=== PATIENT | male | born 1935 | race Caucasian/White ===

== ENCOUNTER 2017-04-13 08:12 | Inpatient (IN) | payer MEDICARE ==
[2017-04-13] MEDS ORDERED: SODIUM CHLORIDE 0.9% 1,000 ML IV STA ×2 (08:33→08:35)
[2017-04-13] MEDS ORDERED: PANTOPRAZOLE 40 MG/10 ML VIAL IVP ONE (08:34)
--- NOTE | 2017-04-13 08:42 | ED ---
General Adult HPI - General Chief complaint: Syncope Stated complaint: syncope Time Seen by Provider: 04/13/17 08:24 Source: patient, EMS Mode of arrival: EMS Limitations: no limitations - History of Present Illness Initial comments: This 81-year-old white male presents with a complaint of a syncopal episode and GI bleeding. He states that over the past 24 hours he's had approximately 6 episodes of bloody stools. His past fair amount of blood. He states that initially was minimally lightheaded and then this morning he was significantly lightheaded and apparently passed out. He states that he passed out on the way back to his bed and landed on his bed and denies any actual injuries. He is on Coumadin and his last INR was 3.68 days ago. He denies any abdominal pain. He denies any previous GI bleeding issues. He has had occasional colitis in the past but denies any history of peptic ulcer disease. His last colonoscopy was 2 years ago and his purportedly normal. 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 He denies any fevers or chills. No chest pain or shortness of breath. No other complaints or modifying factors. He does present via EMS and is very pale upon arrival. - Related Data Home Medications Medication Instructions Recorded Confirmed Aspirin 81 mg PO HS 02/15/14 04/13/17 Diltiazem Cd [Cardizem CD] 300 mg PO HS 02/15/14 04/13/17 Enalapril [Vasotec] 20 mg PO DAILY 02/15/14 04/13/17 Glimepiride [Amaryl] 4 mg PO DAILY 02/15/14 04/13/17 Insulin Detemir [Levemir] 25 unit INJ BID 02/15/14 04/13/17 Metoprolol Succinate (ER) [Toprol 25 mg PO DAILY 02/15/14 04/13/17 XL] Niacin [Niaspan] 500 mg PO HS 02/15/14 04/13/17 Warfarin [Coumadin] 2 mg PO MOWEFR 02/15/14 04/13/17 Warfarin [Coumadin] 5 mg PO MOWEFR 02/15/14 04/13/17 Potassium Chloride ER [K-Dur 10] 10 meq PO DAILY 04/13/17 04/13/17 Torsemide [Demadex] 20 mg PO DAILY 04/13/17 04/13/17 Warfarin Sodium [Coumadin] 6 mg PO SUTUTHSA 04/13/17 04/13/17 Previous Rx's Medication Instructions Recorded Clindamycin HCl [Cleocin] 300 mg PO TID #10 cap 02/17/14 Allergies Allergy/AdvReac Type Severity Reaction Status Date / Time Penicillins Allergy Unknown Verified 04/13/17 09:35 Childhood Review of Systems ROS Statement: Those systems with pertinent positive or pertinent negative responses have been documented in the HPI. ROS Other: All systems not noted in ROS Statement are negative. Past Medical History Past Medical History: Cancer, Diabetes Mellitus, Deep Vein Thrombosis (DVT), Hypertension Additional Past Medical History / Comment(s): COLON CA 03, LIVER CA 05, DVT RT LEG, SEE DR LEGGETT'S H&P History of Any Multi-Drug Resistant Organisms: None Reported Past Surgical History: Bowel Resection, Hernia Repair Additional Past Surgical History / Comment(s): LIVER WEDGE REMOVED Past Anesthesia/Blood Transfusion Reactions: No Reported Reaction Past Psychological History: No Psychological Hx Reported Smoking Status: Former smoker Past Alcohol Use History: Occasional Past Drug Use History: None Reported - Past Family History Sister(s) Family Medical History: Myocardial Infarction ([place]) Father Family Medical History: Congestive Heart Failure (CHF) Mother Additional Family Medical History / Comment(s): cardiac problems General Exam - General Exam Comments Initial Comments: GENERAL: The patient is well nourished and well hydrated. VITAL SIGNS: Heart rate, blood pressure, respiratory rate reviewed as recorded in nurse's notes. EYES: Pupils are round and reactive. Extraocular movements are intact. No conjunctival / lid redness or swelling. ENT: No external evidence of injury, swelling, or ecchymosis. Airway is patent. Throat is clear. NECK: Nontender. No swelling or evidence of injury. No subcutaneous emphysema. Trachea is midline. No thyroid mass. HEART: Regular rate and rhythm. Good peripheral pulses. LUNGS/CHEST: Breath sounds clear and equal bilaterally. No rales, rhonchi, or wheezes. No ecchymosis, subcutaneous emphysema, or tenderness. ABDOMEN: Abdomen soft without tenderness. No palpable masses or organomegaly. No peritoneal signs. No abdominal wall swelling or ecchymosis. EXTREMITIES: No extremity tenderness. Normal muscle tone and function. No thoracolumbar tenderness. NEUROLOGIC: Sensation is grossly intact. Cranial nerve exam reveals face is symmetrical, tongue is midline, speech is clear. SKIN: There is a small area of ecchymosis to the right abdomen from a previous shot. No induration or masses noted. The patient is very pale. PSYCHIATRIC: Alert and oriented. Appropriate behavior and judgment. Limitations: no limitations Course Vital Signs 04/13/17 04/13/17 04/13/17 08:19 09:19 10:19 Temperature 98.2 F Pulse Rate 69 60 62 Respiratory 18 18 18 Rate Blood Pressure 103/69 152/70 135/63 O2 Sat by Pulse 96 98 99 Oximetry Medical Decision Making - Medical Decision Making The patient was seen and examined. All diagnostics were reviewed. An IV is established and he is hydrated. He also received some Protonix. The hemoglobin came back low at 8.4. His CO2 is moderately low as well. The EKG shows an atrial paced rhythm. The MI interval is 248, QRS duration is 148, and the QTc interval is 499. There is some mild artifact noted but overall no acute ST-T wave changes noted. The patient is feeling improved on recheck. It is felt as though he does have a GI bleed. His INR level was therapeutic at 2.2. Case is discussed with Dr. Haider from internal medicine and they are agreeable to admission. GI has been paged and case will be discussed with them as well. - Lab Data Result diagrams: 04/13/17 08:32 04/13/17 08:32 Lab Results 04/13/17 04/13/17 04/13/17 Range/Units 08:32 08:32 08:32 WBC 8.2 (3.8-10.6) k/uL RBC 2.73 L (4.30-5.90) m/uL Hgb 8.4 L (13.0-17.5) gm/dL Hct 24.2 L (39.0-53.0) % MCV 88.9 (80.0-100.0) fL MCH 31.0 (25.0-35.0) pg MCHC 34.8 (31.0-37.0) g/dL RDW 13.9 (11.5-15.5) % Plt Count 249 (150-450) k/uL Neutrophils % 73 % Lymphocytes % 20 % Monocytes % 5 % Eosinophils % 1 % Basophils % 1 % Neutrophils # 6.0 (1.3-7.7) k/uL Lymphocytes # 1.6 (1.0-4.8) k/uL Monocytes # 0.4 (0-1.0) k/uL Eosinophils # 0.1 (0-0.7) k/uL Basophils # 0.0 (0-0.2) k/uL PT (9.0-12.0) sec INR (<1.2) APTT (22.0-30.0) sec Sodium (137-145) mmol/L Potassium (3.5-5.1) mmol/L Chloride (98-107) mmol/L Carbon Dioxide (22-30) mmol/L Anion Gap mmol/L BUN (9-20) mg/dL Creatinine (0.66-1.25) mg/dL Est GFR (MDRD) Af Amer (>60 ml/min/1.73 sqM) Est GFR (MDRD) Non-Af (>60 ml/min/1.73 sqM) Glucose (74-99) mg/dL Calcium (8.4-10.2) mg/dL Total Bilirubin (0.2-1.3) mg/dL AST (17-59) U/L ALT (21-72) U/L Alkaline Phosphatase (38-126) U/L Total Creatine Kinase 29 L (55-170) U/L CK-MB (CK-2) 0.5 (0.0-2.4) ng/mL CK-MB (CK-2) Rel Index 1.7 Troponin I 0.013 (0.000-0.034) ng/mL Total Protein (6.3-8.2) g/dL Albumin (3.5-5.0) g/dL Blood Type B Negative Blood Type Recheck CABO Indicated Antibody Screen NEGATIVE Spec Expiration Date 04/16/2017233104/13/17 04/13/17 Range/Units 08:32 08:32 WBC (3.8-10.6) k/uL RBC (4.30-5.90) m/uL Hgb (13.0-17.5) gm/dL Hct (39.0-53.0) % MCV (80.0-100.0) fL MCH (25.0-35.0) pg MCHC (31.0-37.0) g/dL RDW (11.5-15.5) % Plt Count (150-450) k/uL Neutrophils % % Lymphocytes % % Monocytes % % Eosinophils % % Basophils % % Neutrophils # (1.3-7.7) k/uL Lymphocytes # (1.0-4.8) k/uL Monocytes # (0-1.0) k/uL Eosinophils # (0-0.7) k/uL Basophils # (0-0.2) k/uL PT 20.8 H (9.0-12.0) sec INR 2.2 H (<1.2) APTT 25.9 (22.0-30.0) sec Sodium 136 L (137-145) mmol/L Potassium 4.2 (3.5-5.1) mmol/L Chloride 110 H (98-107) mmol/L Carbon Dioxide 15 L (22-30) mmol/L Anion Gap 11 mmol/L BUN 22 H (9-20) mg/dL Creatinine 1.14 (0.66-1.25) mg/dL Est GFR (MDRD) Af Amer >60 (>60 ml/min/1.73 sqM) Est GFR (MDRD) Non-Af >60 (>60 ml/min/1.73 sqM) Glucose 249 H (74-99) mg/dL Calcium 8.2 L (8.4-10.2) mg/dL Total Bilirubin 1.0 (0.2-1.3) mg/dL AST 13 L (17-59) U/L ALT 22 (21-72) U/L Alkaline Phosphatase 61 (38-126) U/L Total Creatine Kinase (55-170) U/L CK-MB (CK-2) (0.0-2.4) ng/mL CK-MB (CK-2) Rel Index Troponin I (0.000-0.034) ng/mL Total Protein 4.9 L (6.3-8.2) g/dL Albumin 2.7 L (3.5-5.0) g/dL Blood Type Blood Type Recheck Antibody Screen Spec Expiration Date Disposition Clinical Impression: GI bleed, Syncope, Anemia, Warfarin-induced coagulopathy Disposition: ADMITTED IP TO THIS [facility] Condition: Fair Referrals: Jluis Guillen DO [Primary Care Provider] - 1-2 days Time of Disposition: 11:04 Decision Date: 04/13/17 Decision Time: 11:04
[2017-04-13 08:46] LABS: Basophils % (A) 1 %; Eosinophils # (A) 0.1 k/uL (0-0.7); Eosinophils % (A) 1 %; HCT 24.2 % (39.0-53.0); HDW 3.29; HGB 8.4 gm/dL (13.0-17.5); Luc # (Auto) 0.11; Luc % (Auto) 1; Lymphocytes # (A) 1.6 k/uL (1.0-4.8); Lymphocytes % (A) 20 %; MCHC 34.8 g/dL (31.0-37.0); MCV 88.9 fL (80.0-100.0); Mean Platelet Volume 7.3; Monocytes # (A) 0.4 k/uL (0-1.0); Monocytes % (A) 5 %; Neutrophils % (A) 73 %; RBC 2.73 m/uL (4.30-5.90); RDW 13.9 % (11.5-15.5); WBC 8.2 k/uL (3.8-10.6); WBC (Perox) 8.56
[2017-04-13 08:58] LABS: ALT 22 U/L (21-72); AST 13 U/L (17-59); Alkaline Phosphatase 61 U/L (38-126); Anion Gap 11 mmol/L; Blood Urea Nitrogen 22 mg/dL (9-20); Calcium 8.2 mg/dL (8.4-10.2); Carbon Dioxide 15 mmol/L (22-30); Chloride 110 mmol/L (98-107); Glucose 249 mg/dL (74-99); Non-African American GFR(MDRD) >60 (>60 ml/min/1.73 sqM); Potassium 4.2 mmol/L (3.5-5.1); Sodium 136 mmol/L (137-145); Total Protein 4.9 g/dL (6.3-8.2)
[2017-04-13 09:04] LABS: INR 2.2 (<1.2); Partial Thromboplastin Time 25.9 sec (22.0-30.0); Prothrombin Time 20.8 sec (9.0-12.0)
[2017-04-13 09:35] LABS: Creatine Kinase MB 0.5 ng/mL (0.0-2.4); Troponin I 0.013 ng/mL (0.000-0.034)
[2017-04-13] MEDS ORDERED: ACETAMINOPHEN TAB 325 MG TAB PO PRN (11:11)
[2017-04-13] MEDS ORDERED: NALOXONE 0.4 MG/ML 1 ML VIAL IV PRN (11:11)
[2017-04-13] MEDS ORDERED: ONDANSETRON 4 MG/2 ML VIAL IVP PRN (11:11)
[2017-04-13 12:17] LABS: Glucose,Whole Blood 246 mg/dL (75-99)
[2017-04-13] MEDS: INSULIN LISPRO (humaLOG) 300 UNIT/3 ML VIAL SQ SCH ×3 (12:42→20:44)
--- NOTE | 2017-04-13 13:58 | P.HPIM ---
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 2 days ago he noticed red color of stool and related this to eating red beets. Since Wednesday evening he had 8-9 very bloody bowel movements, bright red, no abdominal pain, no nausea or vomiting. Patient experienced some lightheadedness yesterday. This morning he had another episode of diarrhea with blood, after bowel movements he became very dizzy and fainted. After he came back to consciousness, he was lying next to the bed. Denies having any dyspnea, chest pain or palpitations, fever or chills. No other symptoms. He has a history of colon cancer with bowel resection in 2002, also had metastasis to liver for which he had a resection. Last colonoscopy was done in 2014, was normal. Patient is on Coumadin for DVT that he had 2 years ago, was told by his PCP that he needs to be on Coumadin to this of his life. INR has been fluctuating recently, a few days ago and was 3.38. Review of Systems Constitutional: Patient reports no fever, no chills, no weight changes, no change in appetite Eyes: Patient reports no double vision, no visual changes ENT: Patient reports no rhinorrhea, no post nasal drip, no sore throat Cardiovascular: Patient reports no chest, no edema, no palpitations, no orthopnea, no paroxysmal nocturnal dyspnea. Had a syncopal episode after BM today. Respiratory: Patient reports no dyspnea, no cough, no wheeze Gastrointestinal: Patient reports no nausea, no vomiting, no constipation, no diarrhea Genitourinary: Patient reports no dysuria, no urinary frequency, no hematuria. Musculoskeletal: Patient reports no unusual joint pain, no joint swelling or weakness. Patient reports no muscular pain. Psychiatric: Patient reports no changes in mood, no sleeping problems. Patient reports no changes in memory. Endocrine: Patient reports no thirst, no polyuria, no cold intolerance, no heat intolerance. Neurological: Patient reports no unusual paresthesias, no seizures, no paresis , no paralysis, no facila droop, no headache. c/o dizziness. Heme/Lymphatic: Patient reports no easy bruising, no bleeding tendency, no lymphadenopathy. Allergic/ Immunologic: Patient reports no recent allergic reactions or immunologic history. Skin: Patient reports no rashes or unusual lesions. Past Medical History Past Medical History: Cancer, Heart Failure, Diabetes Mellitus, Deep Vein Thrombosis (DVT), Hypertension Additional Past Medical History / Comment(s): COLON CA 03, LIVER CA 05, DVT RT LEG, kidney stones History of Any Multi-Drug Resistant Organisms: None Reported Past Surgical History: Bowel Resection, Hernia Repair, Pacemaker Additional Past Surgical History / Comment(s): LIVER WEDGE REMOVED Past Anesthesia/Blood Transfusion Reactions: No Reported Reaction Past Psychological History: No Psychological Hx Reported Smoking Status: Former smoker Past Alcohol Use History: Occasional Past Drug Use History: None Reported - Past Family History Sister(s) Family Medical History: Myocardial Infarction ([place]) Father Family Medical History: Congestive Heart Failure (CHF) Additional Family Medical History / Comment(s): Father of ruptured AAA Mother Family Medical History: Coronary Artery Disease (CAD) Additional Family Medical History / Comment(s): cardiac problems Medications and Allergies Home Medications Medication Instructions Recorded Confirmed Type Aspirin 81 mg PO HS 02/15/14 04/13/17 History Diltiazem Cd [Cardizem CD] 300 mg PO HS 02/15/14 04/13/17 History Enalapril [Vasotec] 20 mg PO DAILY 02/15/14 04/13/17 History Glimepiride [Amaryl] 4 mg PO DAILY 02/15/14 04/13/17 History Insulin Detemir [Levemir] 25 unit INJ BID 02/15/14 04/13/17 History Metoprolol Succinate (ER) [Toprol 25 mg PO DAILY 02/15/14 04/13/17 History XL] Niacin [Niaspan] 500 mg PO HS 02/15/14 04/13/17 History Warfarin [Coumadin] 2 mg PO MOWEFR 02/15/14 04/13/17 History Warfarin [Coumadin] 5 mg PO MOWEFR 02/15/14 04/13/17 History Potassium Chloride ER [K-Dur 10] 10 meq PO DAILY 04/13/17 04/13/17 History Torsemide [Demadex] 20 mg PO DAILY 04/13/17 04/13/17 History Warfarin Sodium [Coumadin] 6 mg PO SUTUTHSA 04/13/17 04/13/17 History Allergies Allergy/AdvReac Type Severity Reaction Status Date / Time Penicillins Allergy Unknown Verified 04/13/17 09:35 Childhood Physical Exam Vitals: Vital Signs Temp Pulse Pulse Resp BP BP Pulse Ox 04/13/17 12:29 98.1 F 72 18 158/67 99 04/13/17 11:50 65 20 146/68 97 04/13/17 10:19 62 18 135/63 99 04/13/17 09:19 60 18 152/70 98 04/13/17 08:19 98.2 F 69 18 103/69 96 Intake and Output 04/12/17 04/13/17 04/13/17 22:59 06:59 14:59 Intake Total 1160 Balance 1160 Intake: IV 800 Invasive Line 1 800 Oral 360 Other: Weight 137.438 kg Patient Weight 04/14/17 06:59 Weight 137.438 kg - Constitutional General appearance: cooperative, no acute distress, obese - EENT Eyes: anicteric sclerae, EOMI, dentition normal, normal appearance - Neck Neck: no lymphadenopathy, normal ROM, no thyromegaly - Respiratory Respiratory: bilateral: CTA, negative: rales, rhonchi, wheezing - Cardiovascular Rhythm: regular Heart sounds: normal: S1, S2 Abnormal Heart Sounds: no systolic murmur, no diastolic murmur, no rub, no S3 Gallop, no S4 Gallop, no click - Gastrointestinal General gastrointestinal: no hepatomegaly, normal bowel sounds, no organomegaly - Neurologic Neurologic: CNII-XII intact - Musculoskeletal Musculoskeletal: gait normal - Psychiatric Psychiatric: A&O x's 3, appropriate affect, intact judgment & insight Results CBC & Chem 7: 04/13/17 08:32 04/13/17 08:32 Labs: Abnormal Lab Results - Last 24 Hours (Table) 04/13/17 04/13/17 04/13/17 Range/Units 08:32 08:32 08:32 RBC 2.73 L (4.30-5.90) m/uL Hgb 8.4 L (13.0-17.5) gm/dL Hct 24.2 L (39.0-53.0) % PT (9.0-12.0) sec INR (<1.2) Sodium 136 L (137-145) mmol/L Chloride 110 H (98-107) mmol/L Carbon Dioxide 15 L (22-30) mmol/L BUN 22 H (9-20) mg/dL Glucose 249 H (74-99) mg/dL POC Glucose (mg/dL) (75-99) mg/dL Calcium 8.2 L (8.4-10.2) mg/dL AST 13 L (17-59) U/L Total Creatine Kinase 29 L (55-170) U/L Total Protein 4.9 L (6.3-8.2) g/dL Albumin 2.7 L (3.5-5.0) g/dL 04/13/17 04/13/17 Range/Units 08:32 12:15 RBC (4.30-5.90) m/uL Hgb (13.0-17.5) gm/dL Hct (39.0-53.0) % PT 20.8 H (9.0-12.0) sec INR 2.2 H (<1.2) Sodium (137-145) mmol/L Chloride (98-107) mmol/L Carbon Dioxide (22-30) mmol/L BUN (9-20) mg/dL Glucose (74-99) mg/dL POC Glucose (mg/dL) 246 H (75-99) mg/dL Calcium (8.4-10.2) mg/dL AST (17-59) U/L Total Creatine Kinase (55-170) U/L Total Protein (6.3-8.2) g/dL Albumin (3.5-5.0) g/dL Thrombosis Risk Factor Assmnt - DVT/VTE Prophylaxis DVT/VTE Prophylaxis: Mechanical Prophylaxis ordered Assessment and Plan (1) GI bleed Narrative/Plan: Clear liquid diet. Consult gastroenterology for colonoscopy. Aspirin and Coumadin on hold. Status: Acute (2) Anemia Narrative/Plan: Monitor H&H. Transfuse for hemoglobin 7.0 or less. Status: Acute (3) History of colon cancer Narrative/Plan: In remission. Status: Acute (4) Syncope Narrative/Plan: Syncope secondary to GI bleed/vasovagal after verbal moment. Fall precautions. Status: Acute (5) Warfarin-induced coagulopathy Narrative/Plan: Patient received vitamin K in the emergency department. Monitor INR. Status: Acute (6) Diabetes 1.5, managed as type 2 Narrative/Plan: Resume home medications, Accu-Chek before meals and at bedtime Status: Acute (7) HTN (hypertension) Narrative/Plan: Controlled, continue current home medications. Status: Acute (8) DVT prophylaxis Narrative/Plan: Bilateral SCDs Status: Acute
[2017-04-13] MEDS ORDERED: PHYTONADIONE ORAL 5 MG/5 ML ORAL.SYRG PO STA (14:49)
[2017-04-13 15:18] LABS: Basophils % (A) 0 %; CH 30.7; CHCM 34.3; Eosinophils # (A) 0.1 k/uL (0-0.7); Eosinophils % (A) 1 %; HCT 21.3 % (39.0-53.0); HDW 3.36; HGB 7.2 gm/dL (13.0-17.5); Luc # (Auto) 0.17; Luc % (Auto) 2; Lymphocytes # (A) 2.7 k/uL (1.0-4.8); Lymphocytes % (A) 29 %; MCH 30.5 pg (25.0-35.0); MCHC 33.9 g/dL (31.0-37.0); Mean Platelet Volume 7.9; Monocytes # (A) 0.6 k/uL (0-1.0); Monocytes % (A) 6 %; Neutrophils # (A) 5.7 k/uL (1.3-7.7); Neutrophils % (A) 62 %; RBC 2.36 m/uL (4.30-5.90); WBC 9.2 k/uL (3.8-10.6); WBC (Perox) 9.47
[2017-04-13] MEDS ORDERED: CLINDAMYCIN 150 MG CAP PO SCH (16:00)
[2017-04-13 17:52] LABS: Glucose,Whole Blood 268 mg/dL (75-99)
[2017-04-13 20:42] LABS: Glucose,Whole Blood 231 mg/dL (75-99)
[2017-04-13] MEDS: DILTIAZEM CD 300 MG CAP.ER.24H PO SCH (20:44)
[2017-04-13] MEDS: INSULIN DETEMIR 100 UNIT/ML 10 ML VIAL SQ SCH (20:44)
[2017-04-13] MEDS: NIACIN TR 500 MG CAPSULE.ER PO SCH (20:44)
[2017-04-13 21:39] LABS: CH 30.9; CHCM 33.6; HCT 24.6 % (39.0-53.0); HGB 8.3 gm/dL (13.0-17.5); MCH 31.4 pg (25.0-35.0); MCHC 33.9 g/dL (31.0-37.0); MCV 92.7 fL (80.0-100.0); RBC 2.65 m/uL (4.30-5.90); RDW 13.9 % (11.5-15.5); WBC 9.6 k/uL (3.8-10.6)
[2017-04-13 22:27] LABS: Hemoglobin A1C 7.9 % (4.2-6.1)
[2017-04-14 03:01] LABS: Anion Gap 7 mmol/L; Blood Urea Nitrogen 25 mg/dL (9-20); Calcium 8.2 mg/dL (8.4-10.2); Carbon Dioxide 17 mmol/L (22-30); Chloride 111 mmol/L (98-107); Glucose 197 mg/dL (74-99); Magnesium 1.6 mg/dL (1.6-2.3); Non-African American GFR(MDRD) 58 (>60 ml/min/1.73 sqM); Phosphorous 3.3 mg/dL (2.5-4.5); Potassium 3.5 mmol/L (3.5-5.1); Sodium 135 mmol/L (137-145)
[2017-04-14 03:12] LABS: Appearance,Urine Clear (Clear); Bilirubin,Urine Negative (Negative); Glucose,Urine (UA) Negative (Negative); Ketones,Urine Negative (Negative); Leukocyte Esterase,Urine Negative (Negative); Mucus,Urine Rare /hpf; Nitrite,Urine Negative (Negative); PH, Urine 5.5 (5.0-8.0); Particle Count 2176; Protein,Urine 1+ (Negative); RBC,Urine 1 /hpf (0-5); Specific Gravity,Urine 1.018 (1.001-1.035); Squamous Epithelial Cell,Urine 1 /hpf (0-4); UA Billing (MACRO vs. MICRO) MICRO; Urobilinogen,Urine <2.0 mg/dL (<2.0); WBC,Urine 2 /hpf (0-5)
[2017-04-14] MEDS ORDERED: Potassium Replacement Protocol 1 EACH MISC MISCELLANE PRN (03:17)
[2017-04-14] MEDS ORDERED: Magnesium Replacement Protocol 1 EACH MISC MISCELLANE PRN ×2 (03:17→21:31)
[2017-04-14 03:23] LABS: CH 32.4; CHCM 34.9; HCT 23.6 % (39.0-53.0); HDW 3.33; HGB 7.8 gm/dL (13.0-17.5); MCHC 33.2 g/dL (31.0-37.0); MCV 93.5 fL (80.0-100.0); Mean Platelet Volume 7.4; RBC 2.53 m/uL (4.30-5.90); RDW 14.6 % (11.5-15.5); WBC 9.9 k/uL (3.8-10.6)
[2017-04-14] MEDS: MAGNESIUM SULFATE-D5W PMX 1 GM in DEXTROSE/WATER 1 100ML.BAG IVPB SCH ×4 (04:16→23:25)
[2017-04-14] MEDS: POTASSIUM CHLORIDE ER 20 MEQ TAB.ER PO SCH ×2 (04:16→05:21)
[2017-04-14 05:50] LABS: INR 1.6 (<1.2); Prothrombin Time 15.7 sec (9.0-12.0)
[2017-04-14 07:42] LABS: Glucose,Whole Blood 261 mg/dL (75-99)
--- NOTE | 2017-04-14 08:55 | CDI ---
In responding to this query, please exercise your independent professional judgment. The [facility] Coding Staff and Clinical Documentation Specialists appreciate your assistance in clarifying documentation, maintaining compliance with coding guidelines, accurately documenting patients condition and capturing severity of illness. The fact that a question is asked does not imply that any particular answer is desired or expected. Communication forms are a method of clarifying documentation and are not made part of the Legal Health Record. Thank you in advance for your clarification. Last Revision, June 2015 Chauncey Ulloa [address] [place] [address] Documentation Clarification Form Date: 04/14/2017 8:49:00 AM From: Chelle Gamez CCS, CCDS Admit Date: 04/13/2017 11:12:00 AM Patient Name: Gustavo Chandler Visit Number: [id number] Discharge Date: Dr. Sruthi Heard: A diagnosis of anemia lacks specificity to accurately reflect your patients severity of condition and clarification is needed. Patient history/risk factors: Colon cancer with mets to liver (in remission), Long history of aspirin & Coumadin use due to DVT to RLE, has pacemaker. Dx: Acute blood loss anemia secondary to GI bleed Clinical Indicators: Patient presented to ER with GI bleeding requiring 2U PRBCs and ICU management, Hgb 8.4 - 7.2. Hemoglobin: 8.4, 7.2 Hematocrit: 24.2 - 21.3 Treatment: IV fluid bolus, 2 units PRBCs, H&H monitoring Consults: GI, Pulmonary/Critical Care, Cardiology (Pacemaker interrogation). In order to capture the severity of condition, please clarify the type of anemia and etiology if known: Acute blood loss anemia Acute on chronic blood loss anemia Chronic blood loss anemia Iron deficiency anemia Hemolytic anemia Drug induced anemia Anemia due to malignancy Nutritional anemia Unable to determine Other, please specify Please document in your progress notes and discharge summary in order to capture severity of illness and risk of mortality. Include clinical findings that support your diagnosis. FYI: Press F11 to launch patient chart. [facility]TD[facility]ore
[2017-04-14] MEDS: PANTOPRAZOLE 40 MG/10 ML VIAL IV SCH (08:56)
[2017-04-14] MEDS: POTASSIUM CHLORIDE ER 10 MEQ TAB.ER.PRT PO SCH (08:57)
[2017-04-14] MEDS: GLIMEPIRIDE 4 MG TAB PO SCH (08:57)
[2017-04-14] MEDS: METOPROLOL SUCCINATE (ER) 25 MG TAB.ER.24H PO SCH (08:57)
[2017-04-14] MEDS: INSULIN LISPRO (humaLOG) 300 UNIT/3 ML VIAL SQ SCH ×4 (08:57→21:00)
[2017-04-14] MEDS: INSULIN DETEMIR 100 UNIT/ML 10 ML VIAL SQ SCH ×2 (09:00→21:00)
[2017-04-14] MEDS: LISINOPRIL 20 MG TAB PO SCH (09:36)
--- NOTE | 2017-04-14 10:30 | P.CONS ---
History of Present Illness - Reason for Consult Consult date: 04/14/17 Rectal bleeding Requesting physician: Donna Clark - History of Present Illness 81-year-old gentleman with a history of colon carcinoma with liver metastasis 2002 status post left colectomy and chemotherapy presents with acute GI bleed 2 days. Patient is on Coumadin for a DVT diagnosed in 2001. Several large maroon-colored bowel movements 24 hours with lightheadedness. Mild lower abdominal discomfort nothing severe. Afebrile. Denies melena or gross hematemesis. No nausea vomiting. Admission hemoglobin 8.3. MCV 92. Platelet 233. INR 2.2 presently 1.6 received vitamin K and FFP. Last maroon colored bowel movement 3 hours ago. Scheduled received 2 units of blood this morning for hemoglobin 7.8. Last colonoscopy 2 years ago 2015 findings of diverticulosis. He follows with an oncologist in the [place] area last seen in January. Review of Systems Constitutional: Denies fever, chills, sweats, weight gain, or loss. HEENT: Negative for migraines, blurred vision or loss, earaches, drainage, tinnitus, oral mucosal lesions, dysphagia, or odynophagia. Cardiac: Negative for chest pain, arrhythmias, or palpitation. Respiratory: Negative for shortness of breath, hemoptysis, cough, or sputum production. Gastrointestinal: See HPI for pertinent findings. Genitourinary: Negative for hematuria, urgency, frequency, polyuria, dysuria, or penile discharge. Musculoskeletal: Negative for muscle aches, swelling, arthritis, and arthralgias. Neurologic: Negative for stroke or TIA. Endocrine: Diabetes mellitus. Negative for thyroid problems. Skin: Negative for rash or itching. Psychiatric: Negative history for depression and anxiety All systems: negative (See HPI) Past Medical History Past Medical History: Cancer, Heart Failure, Diabetes Mellitus, Deep Vein Thrombosis (DVT), Hypertension Additional Past Medical History / Comment(s): COLON CA 03, LIVER CA 05, DVT RT LEG, kidney stones History of Any Multi-Drug Resistant Organisms: None Reported Past Surgical History: Bowel Resection, Hernia Repair, Pacemaker Additional Past Surgical History / Comment(s): LIVER WEDGE REMOVED Past Anesthesia/Blood Transfusion Reactions: No Reported Reaction Type of Cardiac Device: Permanent Pacemaker Device Placement Date:: 2013 Past Psychological History: No Psychological Hx Reported Smoking Status: Former smoker Past Alcohol Use History: Occasional Past Drug Use History: None Reported - Past Family History Sister(s) Family Medical History: Myocardial Infarction ([place]) Father Family Medical History: Congestive Heart Failure (CHF) Additional Family Medical History / Comment(s): Father of ruptured AAA Mother Family Medical History: Coronary Artery Disease (CAD) Additional Family Medical History / Comment(s): cardiac problems Medications and Allergies Home Medications Medication Instructions Recorded Confirmed Type Aspirin 81 mg PO HS 02/15/14 04/13/17 History Diltiazem Cd [Cardizem CD] 300 mg PO HS 02/15/14 04/13/17 History Enalapril [Vasotec] 20 mg PO DAILY 02/15/14 04/13/17 History Glimepiride [Amaryl] 4 mg PO DAILY 02/15/14 04/13/17 History Insulin Detemir [Levemir] 25 unit INJ BID 02/15/14 04/13/17 History Metoprolol Succinate (ER) [Toprol 25 mg PO DAILY 02/15/14 04/13/17 History XL] Niacin [Niaspan] 500 mg PO HS 02/15/14 04/13/17 History Warfarin [Coumadin] 2 mg PO MOWEFR 02/15/14 04/13/17 History Warfarin [Coumadin] 5 mg PO MOWEFR 02/15/14 04/13/17 History Potassium Chloride ER [K-Dur 10] 10 meq PO DAILY 04/13/17 04/13/17 History Torsemide [Demadex] 20 mg PO DAILY 04/13/17 04/13/17 History Warfarin Sodium [Coumadin] 6 mg PO SUTUTHSA 04/13/17 04/13/17 History Allergies Allergy/AdvReac Type Severity Reaction Status Date / Time Penicillins Allergy Unknown Verified 04/13/17 09:35 Childhood Physical Exam Vitals: Vital Signs Temp Pulse Pulse Resp BP BP Pulse Ox 04/14/17 10:14 97.7 F 62 18 141/56 97 04/14/17 10:00 68 27 H 170/63 96 04/14/17 09:52 97.8 F 62 18 158/59 96 04/14/17 09:30 62 24 158/53 97 04/14/17 09:22 97.7 F 63 18 158/53 97 04/14/17 09:12 97.7 F 64 18 177/55 97 04/14/17 09:00 63 14 157/58 96 04/14/17 08:30 64 19 149/69 95 04/14/17 08:00 73 17 140/53 97 04/14/17 07:30 58 L 27 H 147/68 95 04/14/17 07:27 96 04/14/17 07:00 64 15 157/59 94 L 04/14/17 06:00 62 20 153/53 96 04/14/17 05:00 61 16 141/67 97 04/14/17 04:00 97.8 F 76 18 158/60 96 04/14/17 03:00 61 12 159/59 97 04/14/17 02:00 66 12 151/63 96 04/14/17 01:00 62 19 156/71 96 04/14/17 00:00 97.6 F 60 22 142/58 97 04/13/17 23:00 60 20 154/67 97 04/13/17 22:00 60 20 120/61 96 04/13/17 21:00 60 20 143/63 98 04/13/17 20:00 97.6 F 73 18 153/66 98 04/13/17 19:20 98.4 F 61 17 144/61 99 04/13/17 19:00 60 15 153/68 98 04/13/17 18:10 98.0 F 61 17 150/56 100 04/13/17 18:00 60 14 120/80 95 04/13/17 17:40 98.6 F 64 14 120/80 99 04/13/17 17:30 98.4 F 79 19 121/85 99 04/13/17 17:21 98.7 F 64 17 135/44 99 04/13/17 17:00 76 18 121/52 97 04/13/17 16:00 98.2 F 60 18 121/52 99 04/13/17 15:59 98.4 F 62 18 121/52 99 04/13/17 15:29 98.1 F 61 17 121/58 99 04/13/17 15:19 97.5 F L 68 27 H 123/42 100 04/13/17 15:00 63 16 110/48 100 04/13/17 14:00 64 18 120/51 98 04/13/17 13:00 66 17 158/67 99 04/13/17 12:29 98.1 F 72 18 158/67 99 04/13/17 11:50 65 20 146/68 97 Intake and Output 04/13/17 04/14/17 04/14/17 22:59 06:59 14:59 Intake Total 1100 320 620 Output Total 825 300 400 Balance 275 20 220 Intake: IV 200 Magnesium Sulfate-D5w Pmx 200 1 gm In Dextrose/Water 1 100ml.bag @ 100 mls/hr IVPB Q1H [facility] Rx#: [id number] Oral 480 120 Blood Product 620 620 Rc As-1 Unit 310 [id number] Rc As-1 Unit 310 [id number] Rc Pheresis 2 As3 Unit 310 [id number] Output: Urine 425 200 350 Stool 400 100 50 Other: Voiding Method Bedpan Bedpan Bedpan Urinal Urinal Urinal # Bowel Movements 1 1 1 Weight 141.9 kg General appearance: The patient is alert, oriented, in no acute distress. HET: Head is normocephalic and atraumatic. Pupils are equal and reactive. Oropharynx is clear without lesions. Neck: Supple without lymphadenopathy. Trachea midline. Heart: S1 S2. Regular rate and rhythm. Lungs: No crackles or wheezes are heard. Abdomen: Soft, nontender, nondistended with bowel sounds. No peritoneal signs. No palpable organomegaly or masses. Extremities: Normal skin color and turgor. No cyanosis, rash, ulceration, clubbing, or edema. Radial and pedal pulses are 2/4 bilaterally. Neurological: No focal deficits. Strength and sensation are grossly intact. Results CBC & Chem 7: 04/15/17 09:13 04/15/17 09:13 Labs: Abnormal Lab Results - Last 24 Hours (Table) 04/13/17 04/13/17 04/13/17 Range/Units 08:32 12:15 15:05 RBC 2.36 L (4.30-5.90) m/uL Hgb 7.2 L (13.0-17.5) gm/dL Hct 21.3 L (39.0-53.0) % PT (9.0-12.0) sec INR (<1.2) Sodium (137-145) mmol/L Chloride (98-107) mmol/L Carbon Dioxide (22-30) mmol/L BUN (9-20) mg/dL Glucose (74-99) mg/dL POC Glucose (mg/dL) 246 H (75-99) mg/dL Hemoglobin A1c (4.2-6.1) % Calcium (8.4-10.2) mg/dL Urine Protein (Negative) Hyaline Casts (0-2) /lpf Urine Mucus (None) /hpf Crossmatch See Detail 04/13/17 04/13/17 04/13/17 Range/Units 15:05 17:50 20:40 RBC (4.30-5.90) m/uL Hgb (13.0-17.5) gm/dL Hct (39.0-53.0) % PT (9.0-12.0) sec INR (<1.2) Sodium (137-145) mmol/L Chloride (98-107) mmol/L Carbon Dioxide (22-30) mmol/L BUN (9-20) mg/dL Glucose (74-99) mg/dL POC Glucose (mg/dL) 268 H 231 H (75-99) mg/dL Hemoglobin A1c 7.9 H (4.2-6.1) % Calcium (8.4-10.2) mg/dL Urine Protein (Negative) Hyaline Casts (0-2) /lpf Urine Mucus (None) /hpf Crossmatch 04/13/17 04/14/17 04/14/17 Range/Units 20:54 02:15 02:35 RBC 2.65 L (4.30-5.90) m/uL Hgb 8.3 L (13.0-17.5) gm/dL Hct 24.6 L (39.0-53.0) % PT (9.0-12.0) sec INR (<1.2) Sodium 135 L (137-145) mmol/L Chloride 111 H (98-107) mmol/L Carbon Dioxide 17 L (22-30) mmol/L BUN 25 H (9-20) mg/dL Glucose 197 H (74-99) mg/dL POC Glucose (mg/dL) (75-99) mg/dL Hemoglobin A1c (4.2-6.1) % Calcium 8.2 L (8.4-10.2) mg/dL Urine Protein 1+ H (Negative) Hyaline Casts 9 H (0-2) /lpf Urine Mucus Rare H (None) /hpf Crossmatch 04/14/17 04/14/17 04/14/17 Range/Units 02:35 04:12 07:39 RBC 2.53 L (4.30-5.90) m/uL Hgb 7.8 L (13.0-17.5) gm/dL Hct 23.6 L (39.0-53.0) % PT 15.7 H (9.0-12.0) sec INR 1.6 H (<1.2) Sodium (137-145) mmol/L Chloride (98-107) mmol/L Carbon Dioxide (22-30) mmol/L BUN (9-20) mg/dL Glucose (74-99) mg/dL POC Glucose (mg/dL) 261 H (75-99) mg/dL Hemoglobin A1c (4.2-6.1) % Calcium (8.4-10.2) mg/dL Urine Protein (Negative) Hyaline Casts (0-2) /lpf Urine Mucus (None) /hpf Crossmatch Assessment and Plan (1) GI bleed Narrative/Plan: Possible diverticular bleed however underlying recurrent malignancy cannot be excluded with history of colon carcinoma with liver metastasis. Status: Acute (2) Symptomatic anemia Status: Acute (3) Acute blood loss anemia Status: Acute (4) History of colon cancer Status: Acute (5) Warfarin-induced coagulopathy Status: Acute Plan: 1. Clear liquid diet. 2. CBC every 6 hours. Blood transfusion as indicated. 3. Hold warfarin. 4. Tonic 40 mg IV daily. 5. Repeat colonoscopy tentatively Wednesday. Will allow bleeding to settle down before starting bowel prep. We'll follow closely with you. Hematologic records requested placed on chart for review. The certified novell engineer has discussed the risks, benefits and alternative therapies for the above-mentioned procedure and for both sedation/analgesia as well as necessary blood product administration, if indicated, as they pertain to this patient. The patient has indicated understanding and acceptance of the risks and procedures discussed. Thank you for this kind referral and the opportunity to participate in the care of your patient. This consultation was discussed with Dr. Cates. The impression and plan of care have been directed as dictated.
--- NOTE | 2017-04-14 10:40 | CONS ---
This is an 81-year-old male patient who was admitted with syncopal spell with GI bleeding. He has had at least 6 bloody stools. He is on Coumadin. His INR is 3.68. He has never had any previous GI bleeding. At this time, he denies any chest discomfort. No increased shortness of breath. No dizziness. No lightheadedness. His labs are reviewed. His hemoglobin was 8.3. Hematocrit 24. Sodium 136. Chloride 110. Bicarb 15. BUN 22. Creatinine 1.14. His EKG was reviewed that shows an atrial paced rhythm with IVCD. When I questioned him, he denied any chest discomfort. He said that he had DVT in the past. His past history includes colon cancer, liver cancer, DVT, he has also had bowel resection surgery. On examination, his blood pressure is 158/53 mmHg. He is afebrile. Pulse rate is in the 60s. He is paced. Breath sounds reduced bilaterally with no rhonchi , no crackles. Heart sounds normal. Abdomen soft. Extremities warm. IMPRESSION: 1. Acute gastrointestinal bleeding responsible for syncope. 2. Sick sinus syndrome status post permanent pacemaker implantation. 3. Past history of deep venous thrombosis and multiple cancers. He has been on Coumadin. Follows with Dr. Aparicio. SUGGEST: From a cardiac standpoint, management of acute anemia due to GI losses and continue cardiac medications. Further management of his anticoagulation per primary. Once he stabilizes he may go to the medical floor. [facility] CENTERAdore
--- NOTE | 2017-04-14 11:19 | P.CNPUL ---
History of Present Illness Consult date: 04/14/17 Requesting physician: Donna Clark Reason for consult: other (Critical care management) Chief complaint: Bloody bowel movements, syncope History of present illness: This is a very pleasant 81-year-old gentleman who follows with Dr. Guillen out of [place]. He has a history of diabetes mellitus, hypertension colon cancer in 2002 with resection, metastasis to the liver with resection and chemotherapy in 2004 with treatment at the [facility]. 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 He has a remote history of chronic tobacco use. He presented here to the emergency room yesterday after a 24-48 hour history of note in blood in his bowel movements. He also had developed diarrhea. He initially thought it was secondary to some beet soup that he had eaten. He did develop progressive weakness and a near syncopal episode after getting up from the toilet and walking to his bedroom. He received 2 units of packed red blood cells and his hemoglobin was 8.3 last evening. Currently he was 7.8 and he is on his third unit currently. His presenting INR was 2.2. He received vitamin K 5 mg 1. Current INR 1.6. He is seen today in consultation. He is awake and alert in no acute distress. He is feeling stronger today as compared to yesterday. He has continued to have bloody bowel movements however. He has been seen by GI services. He currently denies any chest pain, palpitations lightheadedness or dizziness. No shortness of breath, cough or congestion. He is maintaining good O2 saturations in the 90s on room air. He has been hemodynamically stable. Not requiring any pressors. Review of Systems 14 point review of system was conducted. All negative other than as mentioned in the HPI. Past Medical History Past Medical History: Cancer, Heart Failure, Diabetes Mellitus, Deep Vein Thrombosis (DVT), Hypertension Additional Past Medical History / Comment(s): COLON CA 03, LIVER CA 05, DVT RT LEG, kidney stones History of Any Multi-Drug Resistant Organisms: None Reported Past Surgical History: Bowel Resection, Hernia Repair, Pacemaker Additional Past Surgical History / Comment(s): LIVER WEDGE REMOVED Past Anesthesia/Blood Transfusion Reactions: No Reported Reaction Type of Cardiac Device: Permanent Pacemaker Device Placement Date:: 2013 Past Psychological History: No Psychological Hx Reported Smoking Status: Former smoker Past Alcohol Use History: Occasional Past Drug Use History: None Reported - Past Family History Sister(s) Family Medical History: Myocardial Infarction ([place]) Father Family Medical History: Congestive Heart Failure (CHF) Additional Family Medical History / Comment(s): Father of ruptured AAA Mother Family Medical History: Coronary Artery Disease (CAD) Additional Family Medical History / Comment(s): cardiac problems Medications and Allergies Home Medications Medication Instructions Recorded Confirmed Type Aspirin 81 mg PO HS 02/15/14 04/13/17 History Diltiazem Cd [Cardizem CD] 300 mg PO HS 02/15/14 04/13/17 History Enalapril [Vasotec] 20 mg PO DAILY 02/15/14 04/13/17 History Glimepiride [Amaryl] 4 mg PO DAILY 02/15/14 04/13/17 History Insulin Detemir [Levemir] 25 unit INJ BID 02/15/14 04/13/17 History Metoprolol Succinate (ER) [Toprol 25 mg PO DAILY 02/15/14 04/13/17 History XL] Niacin [Niaspan] 500 mg PO HS 02/15/14 04/13/17 History Warfarin [Coumadin] 2 mg PO MOWEFR 02/15/14 04/13/17 History Warfarin [Coumadin] 5 mg PO MOWEFR 02/15/14 04/13/17 History Potassium Chloride ER [K-Dur 10] 10 meq PO DAILY 04/13/17 04/13/17 History Torsemide [Demadex] 20 mg PO DAILY 04/13/17 04/13/17 History Warfarin Sodium [Coumadin] 6 mg PO SUTUTHSA 04/13/17 04/13/17 History Allergies Allergy/AdvReac Type Severity Reaction Status Date / Time Penicillins Allergy Unknown Verified 04/13/17 09:35 Childhood Physical Exam Vitals: Vital Signs Temp Pulse Pulse Resp BP BP Pulse Ox 04/14/17 10:47 97.6 F 61 18 141/61 96 04/14/17 10:37 97.7 F 61 18 165/61 96 04/14/17 10:14 97.7 F 62 18 141/56 97 04/14/17 10:00 68 27 H 170/63 96 04/14/17 09:52 97.8 F 62 18 158/59 96 04/14/17 09:30 62 24 158/53 97 04/14/17 09:22 97.7 F 63 18 158/53 97 04/14/17 09:12 97.7 F 64 18 177/55 97 04/14/17 09:00 63 14 157/58 96 04/14/17 08:30 64 19 149/69 95 04/14/17 08:00 73 17 140/53 97 04/14/17 07:30 58 L 27 H 147/68 95 04/14/17 07:27 96 04/14/17 07:00 64 15 157/59 94 L 04/14/17 06:00 62 20 153/53 96 04/14/17 05:00 61 16 141/67 97 04/14/17 04:00 97.8 F 76 18 158/60 96 04/14/17 03:00 61 12 159/59 97 04/14/17 02:00 66 12 151/63 96 04/14/17 01:00 62 19 156/71 96 04/14/17 00:00 97.6 F 60 22 142/58 97 04/13/17 23:00 60 20 154/67 97 04/13/17 22:00 60 20 120/61 96 04/13/17 21:00 60 20 143/63 98 04/13/17 20:00 97.6 F 73 18 153/66 98 04/13/17 19:20 98.4 F 61 17 144/61 99 04/13/17 19:00 60 15 153/68 98 04/13/17 18:10 98.0 F 61 17 150/56 100 04/13/17 18:00 60 14 120/80 95 04/13/17 17:40 98.6 F 64 14 120/80 99 04/13/17 17:30 98.4 F 79 19 121/85 99 04/13/17 17:21 98.7 F 64 17 135/44 99 04/13/17 17:00 76 18 121/52 97 04/13/17 16:00 98.2 F 60 18 121/52 99 04/13/17 15:59 98.4 F 62 18 121/52 99 04/13/17 15:29 98.1 F 61 17 121/58 99 04/13/17 15:19 97.5 F L 68 27 H 123/42 100 08/22/17 15:00 63 16 110/48 100 04/13/17 14:00 64 18 120/51 98 04/13/17 13:00 66 17 158/67 99 04/13/17 12:29 98.1 F 72 18 158/67 99 04/13/17 11:50 65 20 146/68 97 Intake and Output 04/13/17 04/14/17 04/14/17 22:59 06:59 14:59 Intake Total 1100 320 620 Output Total 825 300 400 Balance 275 20 220 Intake: IV 200 Magnesium Sulfate-D5w Pmx 200 1 gm In Dextrose/Water 1 100ml.bag @ 100 mls/hr IVPB Q1H [facility] Rx#: [id number] Oral 480 120 Blood Product 620 620 Rc As-1 Unit 310 [id number] Rc As-1 Unit 310 [id number] Rc Pheresis 2 As3 Unit 310 [id number] Rc Pheresis As-3 Unit 0 [id number] Output: Urine 425 200 350 Stool 400 100 50 Other: Voiding Method Bedpan Bedpan Bedpan Urinal Urinal Urinal # Bowel Movements 1 1 1 Weight 141.9 kg GENERAL EXAM: Pale, weak. No apparent distress. HEAD: Normocephalic. EYES: Normal reaction of pupils, equal size. NOSE: Clear with pink turbinates. THROAT: No erythema or exudates. NECK: No masses, no JVD. CHEST: No chest wall deformity. LUNGS: Equal air entry with no crackles, wheeze, rhonchi or dullness. CVS: S1 and S2 normal with no audible murmurs, regular rhythm. ABDOMEN: No hepatosplenomegaly, normal bowel sounds, no guarding or rigidity. SPINE: No scoliosis or deformity SKIN: No rashes CENTRAL NERVOUS SYSTEM: No focal deficits, tone is normal in all 4 extremities. Extremities: There is trace peripheral edema. No clubbing, no cyanosis. Peripheral pulses are intact. Results - Laboratory Findings CBC and BMP: 04/14/17 02:35 04/14/17 02:35 PT/INR, D-dimer PT 15.7 sec (9.0-12.0) H 04/14/17 04:12 INR 1.6 (<1.2) H 04/14/17 04:12 Abnormal lab findings: Abnormal Labs 04/13/17 04/13/17 04/13/17 08:32 08:32 08:32 RBC 2.73 L Hgb 8.4 L Hct 24.2 L PT INR Sodium Chloride Carbon Dioxide BUN Glucose POC Glucose (mg/dL) Hemoglobin A1c Calcium AST Total Creatine Kinase 29 L Total Protein Albumin Urine Protein Hyaline Casts Urine Mucus Crossmatch See Detail 04/13/17 04/13/17 04/13/17 08:32 08:32 12:15 RBC Hgb Hct PT 20.8 H INR 2.2 H Sodium 136 L Chloride 110 H Carbon Dioxide 15 L BUN 22 H Glucose 249 H POC Glucose (mg/dL) 246 H Hemoglobin A1c Calcium 8.2 L AST 13 L Total Creatine Kinase Total Protein 4.9 L Albumin 2.7 L Urine Protein Hyaline Casts Urine Mucus Crossmatch 04/13/17 04/13/17 04/13/17 15:05 15:05 17:50 RBC 2.36 L Hgb 7.2 L Hct 21.3 L PT INR Sodium Chloride Carbon Dioxide BUN Glucose POC Glucose (mg/dL) 268 H Hemoglobin A1c 7.9 H Calcium AST Total Creatine Kinase Total Protein Albumin Urine Protein Hyaline Casts Urine Mucus Crossmatch 04/13/17 04/13/17 04/14/17 20:40 20:54 02:15 RBC 2.65 L Hgb 8.3 L Hct 24.6 L PT INR Sodium Chloride Carbon Dioxide BUN Glucose POC Glucose (mg/dL) 231 H Hemoglobin A1c Calcium AST Total Creatine Kinase Total Protein Albumin Urine Protein 1+ H Hyaline Casts 9 H Urine Mucus Rare H Crossmatch 04/14/17 04/14/17 04/14/17 02:35 02:35 04:12 RBC 2.53 L Hgb 7.8 L Hct 23.6 L PT 15.7 H INR 1.6 H Sodium 135 L Chloride 111 H Carbon Dioxide 17 L BUN 25 H Glucose 197 H POC Glucose (mg/dL) Hemoglobin A1c Calcium 8.2 L AST Total Creatine Kinase Total Protein Albumin Urine Protein Hyaline Casts Urine Mucus Crossmatch 04/14/17 07:39 RBC Hgb Hct PT INR Sodium Chloride Carbon Dioxide BUN Glucose POC Glucose (mg/dL) 261 H Hemoglobin A1c Calcium AST Total Creatine Kinase Total Protein Albumin Urine Protein Hyaline Casts Urine Mucus Crossmatch - Diagnostic Findings Chest x-ray: image reviewed Assessment and Plan Plan: Pression: #1 Acute gastrointestinal bleeding in a patient with a known history of diverticulosis as well as previous colon cancer and resection. #2 Colon cancer with liver metastasis treated with resection and chemotherapy at the [facility] in 2002, 2004. #3 History of right lower extremity DVT on chronic warfarin initial INR 2.2, received vitamin K 5 mg 1 current INR 1.6 and #4 Diabetes mellitus. #5 Hypertension. #6 Obesity. #7 Remote history of smoking. Her grafts #8 History of sick sinus syndrome, status post permanent pacemaker implantation. Plan: The patient was seen and evaluated by Dr. Macdonald. The patient does continue to have bloody bowel movements. He'll be monitored here closely in the intensive care unit another 24 hours. Currently not requiring any pressor support. GI services on the case and is considering a colonoscopy once the bleeding subsides. In the interim, we'll continue with his current conditions including IV Protonix. We'll continue to follow and make further recommendations based on his clinical status. Time with Patient: Greater than 30
[2017-04-14 12:13] LABS: Glucose,Whole Blood 262 mg/dL (75-99)
--- NOTE | 2017-04-14 12:36 | P.PN ---
Subjective Principal diagnosis: GI bleed This patient is a very pleasant 81 years old male with history of colon cancer status post bowel resection, on Coumadin for DVT presented to the hospital with acute onset of lower GI bleed. Patient has been transfused 2 units of packed red blood cells yesterday. Overnight he had 4 large bloody bowel movements. This morning he continues to have lightheadedness, no chest pain or shortness of breath. Denies having any abdominal pain, nausea or vomiting. Objective - Vital Signs Vital signs: Vital Signs Temp 97.8 F 04/14/17 11:17 Pulse 61 04/14/17 11:17 Resp 18 04/14/17 11:17 BP 114/50 04/14/17 11:17 Pulse Ox 96 04/14/17 11:17 Intake & Output 04/13/17 04/14/17 04/14/17 18:59 06:59 18:59 Intake Total 1830 750 620 Output Total 250 875 400 Balance 1580 -125 220 Weight 137.438 kg 141.9 kg Intake: IV 800 200 Invasive Line 1 800 Magnesium Sulfate-D5w Pmx 200 1 gm In Dextrose/Water 1 100ml.bag @ 100 mls/hr IVPB Q1H [facility] Rx#: [id number] Oral 720 240 Blood Product 310 310 620 Rc As-1 Unit 310 [id number] Rc As-1 Unit 0 310 [id number] Rc Pheresis 2 As3 Unit 310 [id number] Rc Pheresis As-3 Unit 0 [id number] Output: Urine 250 375 350 Stool 500 50 Other: Voiding Method Toilet Bedpan Bedpan Urinal Urinal Urinal # Bowel Movements 1 1 1 - Exam Constitutional: No acute distress, conversant, pleasant Eyes: Anicteric sclerae, moist conjunctiva ENMT: NC/AT Oropharynx clear, no erythema, exudates Neck: Supple, FROM, no masses, or JVD No thyromegaly Lungs: Clear to auscultation Normal respiratory effort, no accessory muscle use Cardiovascular: Heart regular in rate and rhythm, No murmurs, gallops, or rubs No peripheral edema Abdominal: Soft Nontender, no guarding, rebound or rigidity Abdomen moving with respiration Normoactive bowel sounds No hepatomegaly, No splenomegaly No palpable mass Skin: Normal temperature, tone, texture, turgor No induration No subcutaneous nodules No rash, lesions No ulcers Extremities: No digital cyanosis No clubbing Pedal pulses intact and symmetrical No calf tenderness Psychiatric: Alert and oriented to person, place and time Appropriate affect Intact judgement - Labs CBC & Chem 7: 04/14/17 02:35 04/14/17 02:35 Labs: Abnormal Lab Results - Last 24 Hours (Table) 04/13/17 04/13/17 04/13/17 Range/Units 08:32 15:05 15:05 RBC 2.36 L (4.30-5.90) m/uL Hgb 7.2 L (13.0-17.5) gm/dL Hct 21.3 L (39.0-53.0) % PT (9.0-12.0) sec INR (<1.2) Sodium (137-145) mmol/L Chloride (98-107) mmol/L Carbon Dioxide (22-30) mmol/L BUN (9-20) mg/dL Glucose (74-99) mg/dL POC Glucose (mg/dL) (75-99) mg/dL Hemoglobin A1c 7.9 H (4.2-6.1) % Calcium (8.4-10.2) mg/dL Urine Protein (Negative) Hyaline Casts (0-2) /lpf Urine Mucus (None) /hpf Crossmatch See Detail 04/13/17 04/13/17 04/13/17 Range/Units 17:50 20:40 20:54 RBC 2.65 L (4.30-5.90) m/uL Hgb 8.3 L (13.0-17.5) gm/dL Hct 24.6 L (39.0-53.0) % PT (9.0-12.0) sec INR (<1.2) Sodium (137-145) mmol/L Chloride (98-107) mmol/L Carbon Dioxide (22-30) mmol/L BUN (9-20) mg/dL Glucose (74-99) mg/dL POC Glucose (mg/dL) 268 H 231 H (75-99) mg/dL Hemoglobin A1c (4.2-6.1) % Calcium (8.4-10.2) mg/dL Urine Protein (Negative) Hyaline Casts (0-2) /lpf Urine Mucus (None) /hpf Crossmatch 04/14/17 04/14/17 04/14/17 Range/Units 02:15 02:35 02:35 RBC 2.53 L (4.30-5.90) m/uL Hgb 7.8 L (13.0-17.5) gm/dL Hct 23.6 L (39.0-53.0) % PT (9.0-12.0) sec INR (<1.2) Sodium 135 L (137-145) mmol/L Chloride 111 H (98-107) mmol/L Carbon Dioxide 17 L (22-30) mmol/L BUN 25 H (9-20) mg/dL Glucose 197 H (74-99) mg/dL POC Glucose (mg/dL) (75-99) mg/dL Hemoglobin A1c (4.2-6.1) % Calcium 8.2 L (8.4-10.2) mg/dL Urine Protein 1+ H (Negative) Hyaline Casts 9 H (0-2) /lpf Urine Mucus Rare H (None) /hpf Crossmatch 04/14/17 04/14/17 04/14/17 Range/Units 04:12 07:39 12:11 RBC (4.30-5.90) m/uL Hgb (13.0-17.5) gm/dL Hct (39.0-53.0) % PT 15.7 H (9.0-12.0) sec INR 1.6 H (<1.2) Sodium (137-145) mmol/L Chloride (98-107) mmol/L Carbon Dioxide (22-30) mmol/L BUN (9-20) mg/dL Glucose (74-99) mg/dL POC Glucose (mg/dL) 261 H 262 H (75-99) mg/dL Hemoglobin A1c (4.2-6.1) % Calcium (8.4-10.2) mg/dL Urine Protein (Negative) Hyaline Casts (0-2) /lpf Urine Mucus (None) /hpf Crossmatch Assessment and Plan (1) GI bleed Narrative/Plan: Continues to have rectal bleeding. INR 1.6 today. Continue Protonix IV. GI input appreciated, plan for colonoscopy possibly Wednesday. Status: Acute (2) Anemia Narrative/Plan: Acute blood loss anemia secondary to GI bleed. Patient is hemodynamically stable. Status post transfusion of 2 units packed red blood cells. Hemoglobin in the morning was 7.8, ordered 2 more units of packed red blood cells. Continue to monitor H&H every 6 hours. Status: Acute (3) History of colon cancer Narrative/Plan: In remission Status: Acute (4) Syncope Narrative/Plan: Syncope secondary to GI bleed and blood loss. Patient had a pacemaker placed in January this year, discussed with cardiology. Will interrogate pacemaker. Status: Acute (5) Warfarin-induced coagulopathy Narrative/Plan: Status post vitamin K, INR 1.6, continue to monitor Status: Acute (6) Diabetes 1.5, managed as type 2 Narrative/Plan: Resume home medications, Accu-Chek before meals and at bedtime Status: Acute (7) HTN (hypertension) Narrative/Plan: Controlled, continue current home medications. Status: Acute (8) DVT prophylaxis Narrative/Plan: Bilateral SCDs Status: Acute Time with Patient: Greater than 30
[2017-04-14 14:59] LABS: CH 32.2; CHCM 34.6; HCT 27.3 % (39.0-53.0); HDW 3.28; MCH 30.7 pg (25.0-35.0); MCHC 32.8 g/dL (31.0-37.0); MCV 93.5 fL (80.0-100.0); Mean Platelet Volume 8.6; RBC 2.92 m/uL (4.30-5.90); RDW 14.4 % (11.5-15.5); WBC 10.6 k/uL (3.8-10.6)
[2017-04-14 17:07] LABS: Glucose,Whole Blood 202 mg/dL (75-99)
[2017-04-14] MEDS: TORSEMIDE 20 MG TAB PO SCH (17:34)
[2017-04-14 20:58] LABS: Glucose,Whole Blood 179 mg/dL (75-99)
[2017-04-14] MEDS: DILTIAZEM CD 300 MG CAP.ER.24H PO SCH (21:00)
[2017-04-14] MEDS: NIACIN TR 500 MG CAPSULE.ER PO SCH (21:00)
[2017-04-14 21:09] LABS: CH 32.1; CHCM 34.9; HCT 25.2 % (39.0-53.0); HDW 3.39; HGB 8.4 gm/dL (13.0-17.5); MCH 31.1 pg (25.0-35.0); MCHC 33.5 g/dL (31.0-37.0); MCV 92.9 fL (80.0-100.0); Mean Platelet Volume 7.3; RBC 2.71 m/uL (4.30-5.90); RDW 14.8 % (11.5-15.5)
[2017-04-15 03:53] LABS: CH 32.6; CHCM 35.6; HCT 23.8 % (39.0-53.0); MCH 30.9 pg (25.0-35.0); MCHC 33.5 g/dL (31.0-37.0); MCV 92.2 fL (80.0-100.0); RBC 2.58 m/uL (4.30-5.90); RDW 15.2 % (11.5-15.5); WBC 8.8 k/uL (3.8-10.6)
[2017-04-15 03:54] LABS: INR 1.2 (<1.2); Prothrombin Time 11.5 sec (9.0-12.0)
[2017-04-15 03:55] LABS: Anion Gap 5 mmol/L; Blood Urea Nitrogen 17 mg/dL (9-20); Calcium 8.5 mg/dL (8.4-10.2); Carbon Dioxide 19 mmol/L (22-30); Chloride 111 mmol/L (98-107); Glucose 128 mg/dL (74-99); Magnesium 2.3 mg/dL (1.6-2.3); Non-African American GFR(MDRD) >60 (>60 ml/min/1.73 sqM); Phosphorous 2.9 mg/dL (2.5-4.5); Potassium 3.4 mmol/L (3.5-5.1); Sodium 135 mmol/L (137-145)
[2017-04-15] MEDS ORDERED: Potassium Replacement Protocol 1 EACH MISC MISCELLANE PRN ×3 (04:16→23:49)
[2017-04-15] MEDS: POTASSIUM CHLORIDE ER 20 MEQ TAB.ER PO SCH ×3 (05:09→14:02)
[2017-04-15 07:25] LABS: Glucose,Whole Blood 125 mg/dL (75-99)
[2017-04-15] MEDS: GLIMEPIRIDE 4 MG TAB PO SCH (07:31)
[2017-04-15] MEDS: INSULIN LISPRO (humaLOG) 300 UNIT/3 ML VIAL SQ SCH ×4 (07:31→20:58)
[2017-04-15] MEDS: METOPROLOL SUCCINATE (ER) 25 MG TAB.ER.24H PO SCH (08:13)
[2017-04-15] MEDS: PANTOPRAZOLE 40 MG/10 ML VIAL IV SCH (08:13)
[2017-04-15] MEDS: POTASSIUM CHLORIDE ER 10 MEQ TAB.ER.PRT PO SCH (08:13)
[2017-04-15] MEDS: INSULIN DETEMIR 100 UNIT/ML 10 ML VIAL SQ SCH ×2 (08:17→21:01)
--- NOTE | 2017-04-15 09:08 | P.PN ---
Subjective This is a very pleasant 81-year-old gentleman who follows with Dr. Guillen out of [place]. He has a history of diabetes mellitus, hypertension colon cancer in 2002 with resection, metastasis to the liver with resection and chemotherapy in 2004 with treatment at the [facility]. 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 He has a remote history of chronic tobacco use. He presented here to the emergency room yesterday after a 24-48 hour history of note in blood in his bowel movements. He also had developed diarrhea. He initially thought it was secondary to some beet soup that he had eaten. He did develop progressive weakness and a near syncopal episode after getting up from the toilet and walking to his bedroom. He received 2 units of packed red blood cells and his hemoglobin was 8.3 last evening. Currently he was 7.8 and he is on his third unit currently. His presenting INR was 2.2. He received vitamin K 5 mg 1. Current INR 1.6. He is seen today in consultation. He is awake and alert in no acute distress. He is feeling stronger today as compared to yesterday. He has continued to have bloody bowel movements however. He has been seen by GI services. He currently denies any chest pain, palpitations lightheadedness or dizziness. No shortness of breath, cough or congestion. He is maintaining good O2 saturations in the 90s on room air. He has been hemodynamically stable. Not requiring any pressors. The patient was seen and evaluated again today 04/15/2017 in follow-up in the intensive care unit. He remains awake and alert in no acute distress. He did receive a total of 4 units of packed red blood cells since admission. His current hemoglobin is 8.0. He has not had any further bloody bowel movements. He has a 0.9 normal saline at [facility]. He is maintaining good O2 saturations in the 90s on 2 L/m per nasal cannula. The plan is for colonoscopy tomorrow morning. Denies any shortness of breath, cough or congestion. He is feeling stronger today as compared to yesterday. Objective - Vital Signs Vital signs: Vital Signs Temp 97.7 F 04/15/17 08:00 Pulse 60 04/15/17 08:00 Resp 20 04/15/17 08:00 BP 123/53 04/15/17 08:00 Pulse Ox 93 L 04/15/17 08:00 Intake & Output 04/14/17 04/15/17 04/15/17 18:59 06:59 18:59 Intake Total 1300 440 40 Output Total 725 350 Balance 575 90 40 Weight 145 kg Intake: IV 60 440 40 0.9 60 240 40 Magnesium Sulfate-D5w Pmx 200 1 gm In Dextrose/Water 1 100ml.bag @ 100 mls/hr IVPB Q1H [facility] Rx#: [id number] Blood Product 1240 Rc Pheresis 2 As3 Unit 310 [id number] Rc Pheresis As-3 Unit 310 [id number] Output: Urine 675 350 Stool 50 Other: Voiding Method Bedpan Bedpan Bedpan Urinal Urinal Urinal # Voids 0 1 # Bowel Movements 1 1 - Exam GENERAL EXAM: Pale, weak. No apparent distress. HEAD: Normocephalic. EYES: Normal reaction of pupils, equal size. NOSE: Clear with pink turbinates. THROAT: No erythema or exudates. NECK: No masses, no JVD. CHEST: No chest wall deformity. LUNGS: Equal air entry with no crackles, wheeze, rhonchi or dullness. CVS: S1 and S2 normal with no audible murmurs, regular rhythm. ABDOMEN: No hepatosplenomegaly, normal bowel sounds, no guarding or rigidity. SPINE: No scoliosis or deformity SKIN: No rashes CENTRAL NERVOUS SYSTEM: No focal deficits, tone is normal in all 4 extremities. Extremities: There is trace peripheral edema. No clubbing, no cyanosis. Peripheral pulses are intact. - Labs CBC & Chem 7: 04/15/17 03:31 04/15/17 03:31 Labs: Abnormal Lab Results - Last 24 Hours (Table) 04/13/17 04/14/17 04/14/17 Range/Units 08:32 12:11 14:47 RBC 2.92 L (4.30-5.90) m/uL Hgb 9.0 L (13.0-17.5) gm/dL Hct 27.3 L (39.0-53.0) % INR (<1.2) Sodium (137-145) mmol/L Potassium (3.5-5.1) mmol/L Chloride (98-107) mmol/L Carbon Dioxide (22-30) mmol/L Glucose (74-99) mg/dL POC Glucose (mg/dL) 262 H (75-99) mg/dL Crossmatch See Detail 04/14/17 04/14/17 04/14/17 Range/Units 17:05 20:54 20:56 RBC 2.71 L (4.30-5.90) m/uL Hgb 8.4 L (13.0-17.5) gm/dL Hct 25.2 L (39.0-53.0) % INR (<1.2) Sodium (137-145) mmol/L Potassium (3.5-5.1) mmol/L Chloride (98-107) mmol/L Carbon Dioxide (22-30) mmol/L Glucose (74-99) mg/dL POC Glucose (mg/dL) 202 H 179 H (75-99) mg/dL Crossmatch 04/15/17 04/15/17 04/15/17 Range/Units 03:31 03:31 03:31 RBC 2.58 L (4.30-5.90) m/uL Hgb 8.0 L (13.0-17.5) gm/dL Hct 23.8 L (39.0-53.0) % INR 1.2 H (<1.2) Sodium 135 L (137-145) mmol/L Potassium 3.4 L (3.5-5.1) mmol/L Chloride 111 H (98-107) mmol/L Carbon Dioxide 19 L (22-30) mmol/L Glucose 128 H (74-99) mg/dL POC Glucose (mg/dL) (75-99) mg/dL Crossmatch 04/15/17 Range/Units 07:24 RBC (4.30-5.90) m/uL Hgb (13.0-17.5) gm/dL Hct (39.0-53.0) % INR (<1.2) Sodium (137-145) mmol/L Potassium (3.5-5.1) mmol/L Chloride (98-107) mmol/L Carbon Dioxide (22-30) mmol/L Glucose (74-99) mg/dL POC Glucose (mg/dL) 125 H (75-99) mg/dL Crossmatch Assessment and Plan Plan: Pression: #1 Acute gastrointestinal bleeding in a patient with a known history of diverticulosis as well as previous colon cancer and resection. #2 Colon cancer with liver metastasis treated with resection and chemotherapy at the [facility] in 2002, 2004. #3 History of right lower extremity DVT on chronic warfarin initial INR 2.2, received vitamin K 5 mg 1 current INR 1.2 #4 Diabetes mellitus. #5 Hypertension. #6 Obesity. #7 Remote history of smoking. #8 History of sick sinus syndrome, status post permanent pacemaker implantation. Plan: The patient was seen and evaluated by Dr. Macdonald. He is currently stable with a hemoglobin of 8.0. Status post 4 units of packed red blood cells. The plan is for colonoscopy tomorrow per GI services. We'll monitor him here closely in the intensive care unit throughout the day. He may be able transfer her out later this evening or tomorrow morning. We'll continue to follow and make further recommendations based on his clinical status.
[2017-04-15 09:46] LABS: CH 32.2; CHCM 34.5; HCT 26.5 % (39.0-53.0); HDW 3.41; HGB 8.8 gm/dL (13.0-17.5); MCH 31.4 pg (25.0-35.0); MCHC 33.3 g/dL (31.0-37.0); MCV 94.2 fL (80.0-100.0); Mean Platelet Volume 7.2; Poikilocytosis Slight; RBC 2.81 m/uL (4.30-5.90); RDW 15.2 % (11.5-15.5); WBC 9.4 k/uL (3.8-10.6)
[2017-04-15] MEDS: LISINOPRIL 20 MG TAB PO SCH (09:49)
[2017-04-15] MEDS: TORSEMIDE 20 MG TAB PO SCH (09:49)
--- NOTE | 2017-04-15 09:56 | P.PN ---
Subjective Principal diagnosis: GI bleed 81-year-old gentleman with a history of colon carcinoma status post resection with liver metastasis status post treatment 2003 with history of DVT in 2001 on warfarin presents with acute lower GI bleed suspect diverticular in nature. As bloody bowel movement more than 18 hours ago. Denies abdominal pain. Received 4 units of blood. Hemoglobin 8.8. Warfarin on hold. INR 1.2. Objective - Vital Signs Vital signs: Vital Signs Temp 97.7 F 04/15/17 08:00 Pulse 61 04/15/17 09:00 Resp 14 04/15/17 09:00 BP 139/57 04/15/17 09:00 Pulse Ox 93 L 04/15/17 09:00 Intake & Output 04/14/17 04/15/17 04/15/17 18:59 06:59 18:59 Intake Total 1300 440 60 Output Total 725 350 175 Balance 575 90 -115 Weight 145 kg Intake: IV 60 440 60 0.9 60 240 60 Magnesium Sulfate-D5w Pmx 200 1 gm In Dextrose/Water 1 100ml.bag @ 100 mls/hr IVPB Q1H [facility] Rx#: [id number] Blood Product 1240 Rc Pheresis 2 As3 Unit 310 [id number] Rc Pheresis As-3 Unit 310 [id number] Output: Urine 675 350 175 Stool 50 Other: Voiding Method Bedpan Bedpan Bedpan Urinal Urinal Urinal # Voids 0 1 # Bowel Movements 1 1 1 - Exam General appearance: The patient is alert, oriented, in no acute distress. HET: Head is normocephalic and atraumatic. Pupils are equal and reactive. Oropharynx is clear without lesions. Neck: Supple without lymphadenopathy. Trachea midline. Heart: S1 S2. Regular rate and rhythm. Lungs: No crackles or wheezes are heard. Abdomen: Soft, nontender, nondistended with bowel sounds. No peritoneal signs. No palpable organomegaly or masses. Extremities: Normal skin color and turgor. No cyanosis, rash, ulceration, clubbing, or edema. Radial and pedal pulses are 2/4 bilaterally. Neurological: No focal deficits. Strength and sensation are grossly intact. - Labs CBC & Chem 7: 04/15/17 09:13 04/15/17 09:13 Labs: Abnormal Lab Results - Last 24 Hours (Table) 04/13/17 04/14/17 04/14/17 Range/Units 08:32 12:11 14:47 RBC 2.92 L (4.30-5.90) m/uL Hgb 9.0 L (13.0-17.5) gm/dL Hct 27.3 L (39.0-53.0) % INR (<1.2) Sodium (137-145) mmol/L Potassium (3.5-5.1) mmol/L Chloride (98-107) mmol/L Carbon Dioxide (22-30) mmol/L Glucose (74-99) mg/dL POC Glucose (mg/dL) 262 H (75-99) mg/dL Crossmatch See Detail 04/14/17 04/14/17 04/14/17 Range/Units 17:05 20:54 20:56 RBC 2.71 L (4.30-5.90) m/uL Hgb 8.4 L (13.0-17.5) gm/dL Hct 25.2 L (39.0-53.0) % INR (<1.2) Sodium (137-145) mmol/L Potassium (3.5-5.1) mmol/L Chloride (98-107) mmol/L Carbon Dioxide (22-30) mmol/L Glucose (74-99) mg/dL POC Glucose (mg/dL) 202 H 179 H (75-99) mg/dL Crossmatch 04/15/17 04/15/17 04/15/17 Range/Units 03:31 03:31 03:31 RBC 2.58 L (4.30-5.90) m/uL Hgb 8.0 L (13.0-17.5) gm/dL Hct 23.8 L (39.0-53.0) % INR 1.2 H (<1.2) Sodium 135 L (137-145) mmol/L Potassium 3.4 L (3.5-5.1) mmol/L Chloride 111 H (98-107) mmol/L Carbon Dioxide 19 L (22-30) mmol/L Glucose 128 H (74-99) mg/dL POC Glucose (mg/dL) (75-99) mg/dL Crossmatch 04/15/17 04/15/17 04/15/17 Range/Units 07:24 09:13 09:13 RBC 2.81 L (4.30-5.90) m/uL Hgb 8.8 L (13.0-17.5) gm/dL Hct 26.5 L (39.0-53.0) % INR (<1.2) Sodium (137-145) mmol/L Potassium 3.4 L (3.5-5.1) mmol/L Chloride (98-107) mmol/L Carbon Dioxide (22-30) mmol/L Glucose (74-99) mg/dL POC Glucose (mg/dL) 125 H (75-99) mg/dL Crossmatch Assessment and Plan (1) GI bleed Narrative/Plan: Possible diverticular bleed however underlying recurrent malignancy cannot be excluded with history of colon carcinoma with liver metastasis. Status: Acute (2) Symptomatic anemia Status: Acute (3) Acute blood loss anemia Status: Acute (4) History of colon cancer Status: Acute (5) Warfarin-induced coagulopathy Status: Acute Plan: 1. Colonoscopy tomorrow. 2. Continue monitor CBC. Continue GI prophylaxis. The technical solution architect has discussed the risks, benefits and alternative therapies for the above-mentioned procedure and for both sedation/analgesia as well as necessary blood product administration, if indicated, as they pertain to this patient. The patient has indicated understanding and acceptance of the risks and procedures discussed. Assessment and plan of care discussed with Dr. Cates
[2017-04-15 12:31] LABS: Glucose,Whole Blood 146 mg/dL (75-99)
[2017-04-15] MEDS ORDERED: PEG 3350-NA SULF,BICARB,CL/KCL 4,000 ML BOTTLE PO ONE (15:00)
[2017-04-15 15:19] LABS: CHCM 33.7; HCT 24.9 % (39.0-53.0); HDW 3.39; HGB 8.3 gm/dL (13.0-17.5); MCH 31.8 pg (25.0-35.0); MCHC 33.3 g/dL (31.0-37.0); MCV 95.7 fL (80.0-100.0); Mean Platelet Volume 7.3; RBC 2.61 m/uL (4.30-5.90); RDW 15.6 % (11.5-15.5); WBC 9.5 k/uL (3.8-10.6)
--- NOTE | 2017-04-15 17:55 | P.PN ---
Subjective Principal diagnosis: GI bleed This is a very pleasant 81 years old male with history of colon cancer , diabetes mellitus type 2, hypertension, hyperlipidemia and DVT of right lower extremity for which he is on Coumadin presented to the hospital with GI bleed. 2 days ago he noticed red color of stool and related this to eating red beets. Since Wednesday evening he had 8-9 very bloody bowel movements, bright red, no abdominal pain, no nausea or vomiting. Patient experienced some lightheadedness yesterday. This morning he had another episode of diarrhea with blood, after bowel movements he became very dizzy and fainted. After he came back to consciousness, he was lying next to the bed. Denies having any dyspnea, chest pain or palpitations, fever or chills. No other symptoms. He has a history of colon cancer with bowel resection in 2002, also had metastasis to liver for which he had a resection. Last colonoscopy was done in 2014, was normal. Patient is on Coumadin for DVT that he had 2 years ago, was told by his PCP that he needs to be on Coumadin to this of his life. INR has been fluctuating recently, a few days ago and was 3.38 Patient is feeling stronger today, no dizziness or chest pain. Does not have any appetite. Last bowel movement was last night without blood. No abdominal pain or nausea. Objective - Vital Signs Vital signs: Vital Signs Temp 97.7 F 04/15/17 08:00 Pulse 60 04/15/17 08:00 Resp 20 04/15/17 08:00 BP 123/53 04/15/17 08:00 Pulse Ox 93 L 04/15/17 08:00 Intake & Output 04/14/17 04/15/17 04/15/17 18:59 06:59 18:59 Intake Total 1300 440 40 Output Total 725 350 Balance 575 90 40 Weight 145 kg Intake: IV 60 440 40 0.9 60 240 40 Magnesium Sulfate-D5w Pmx 200 1 gm In Dextrose/Water 1 100ml.bag @ 100 mls/hr IVPB Q1H [facility] Rx#: [id number] Blood Product 1240 Rc Pheresis 2 As3 Unit 310 [id number] Rc Pheresis As-3 Unit 310 [id number] Output: Urine 675 350 Stool 50 Other: Voiding Method Bedpan Bedpan Bedpan Urinal Urinal Urinal # Voids 0 1 # Bowel Movements 1 1 - Exam Constitutional: No acute distress Eyes: Anicteric sclerae, moist conjunctiva ENMT: NC/AT Oropharynx clear, no erythema, exudates Neck: Supple, FROM, no masses, or JVD No thyromegaly Lungs: Clear to auscultation Normal respiratory effort, no accessory muscle use Cardiovascular: Heart regular in rate and rhythm, No murmurs, gallops, or rubs Abdominal: Soft Nontender, no guarding, rebound or rigidity Normoactive bowel sounds No hepatomegaly, No splenomegaly No palpable mass Skin: Normal temperature, tone, texture, turgor No ulcers Extremities: No digital cyanosis No clubbing Pedal pulses intact and symmetrical No calf tenderness Psychiatric: Alert and oriented to person, place and time Appropriate affect Intact judgement - Labs CBC & Chem 7: 04/15/17 15:00 04/15/17 15:00 Labs: Abnormal Lab Results - Last 24 Hours (Table) 04/13/17 04/14/17 04/14/17 Range/Units 08:32 12:11 14:47 RBC 2.92 L (4.30-5.90) m/uL Hgb 9.0 L (13.0-17.5) gm/dL Hct 27.3 L (39.0-53.0) % INR (<1.2) Sodium (137-145) mmol/L Potassium (3.5-5.1) mmol/L Chloride (98-107) mmol/L Carbon Dioxide (22-30) mmol/L Glucose (74-99) mg/dL POC Glucose (mg/dL) 262 H (75-99) mg/dL Crossmatch See Detail 04/14/17 04/14/17 04/14/17 Range/Units 17:05 20:54 20:56 RBC 2.71 L (4.30-5.90) m/uL Hgb 8.4 L (13.0-17.5) gm/dL Hct 25.2 L (39.0-53.0) % INR (<1.2) Sodium (137-145) mmol/L Potassium (3.5-5.1) mmol/L Chloride (98-107) mmol/L Carbon Dioxide (22-30) mmol/L Glucose (74-99) mg/dL POC Glucose (mg/dL) 202 H 179 H (75-99) mg/dL Crossmatch 04/15/17 04/15/17 04/15/17 Range/Units 03:31 03:31 03:31 RBC 2.58 L (4.30-5.90) m/uL Hgb 8.0 L (13.0-17.5) gm/dL Hct 23.8 L (39.0-53.0) % INR 1.2 H (<1.2) Sodium 135 L (137-145) mmol/L Potassium 3.4 L (3.5-5.1) mmol/L Chloride 111 H (98-107) mmol/L Carbon Dioxide 19 L (22-30) mmol/L Glucose 128 H (74-99) mg/dL POC Glucose (mg/dL) (75-99) mg/dL Crossmatch 04/15/17 Range/Units 07:24 RBC (4.30-5.90) m/uL Hgb (13.0-17.5) gm/dL Hct (39.0-53.0) % INR (<1.2) Sodium (137-145) mmol/L Potassium (3.5-5.1) mmol/L Chloride (98-107) mmol/L Carbon Dioxide (22-30) mmol/L Glucose (74-99) mg/dL POC Glucose (mg/dL) 125 H (75-99) mg/dL Crossmatch Assessment and Plan (1) GI bleed Narrative/Plan: GI bleed resolved, EGD and colonoscopy tomorrow a.m.. Continue PPIs. Status: Acute (2) Anemia Narrative/Plan: Acute blood loss anemia secondary to GI bleed. Status post transfusion of 4 units packed red blood cells. Monitor H&H. Status: Acute (3) History of colon cancer Narrative/Plan: Colon cancer with liver metastasis treated with resection and chemotherapy at the [facility] in 2002, 2004. Status: Acute (4) Syncope Narrative/Plan: Syncope secondary to GI bleed and blood loss. Dizziness resolved after blood transfusion. Status: Acute (5) Warfarin-induced coagulopathy Narrative/Plan: INR 1.2 Status: Acute (6) Diabetes 1.5, managed as type 2 Narrative/Plan: Resume home medications, Accu-Chek before meals and at bedtime Status: Acute (7) HTN (hypertension) Narrative/Plan: Controlled, continue current home medications. Status: Acute (8) DVT prophylaxis Narrative/Plan: Bilateral SCDs Status: Acute
[2017-04-15 18:06] LABS: Glucose,Whole Blood 135 mg/dL (75-99)
[2017-04-15] MEDS: POTASSIUM CHLORIDE 10 MEQ in WATER FOR INJECTION 1 100ML.BAG IVPB SCH ×2 (18:08→19:02)
[2017-04-15] MEDS: DILTIAZEM CD 300 MG CAP.ER.24H PO SCH (20:58)
[2017-04-15 20:59] LABS: Glucose,Whole Blood 159 mg/dL (75-99)
[2017-04-15] MEDS: NIACIN TR 500 MG CAPSULE.ER PO SCH (20:59)
[2017-04-15 23:08] LABS: Basophils # (A) 0.1 k/uL (0-0.2); Basophils % (A) 0 %; CH 31.6; CHCM 34.1; Eosinophils # (A) 0.1 k/uL (0-0.7); Eosinophils % (A) 1 %; HCT 25.6 % (39.0-53.0); HDW 3.44; HGB 8.6 gm/dL (13.0-17.5); Luc # (Auto) 0.17; Luc % (Auto) 2; Lymphocytes # (A) 2.2 k/uL (1.0-4.8); Lymphocytes % (A) 22 %; MCH 31.5 pg (25.0-35.0); MCHC 33.7 g/dL (31.0-37.0); MCV 93.4 fL (80.0-100.0); Mean Platelet Volume 6.6; Monocytes # (A) 0.6 k/uL (0-1.0); Monocytes % (A) 6 %; Neutrophils # (A) 6.9 k/uL (1.3-7.7); Neutrophils % (A) 69 %; Poikilocytosis Slight; RBC 2.75 m/uL (4.30-5.90); RDW 15.2 % (11.5-15.5); WBC (Perox) 10.23
[2017-04-16] MEDS: POTASSIUM CHLORIDE 10 MEQ, LIDOCAINE 2% INJ 10 MG in SODIUM CHLORIDE 0.9% 100 ML IV SCH ×4 (00:14→08:21)
[2017-04-16 05:39] LABS: Anisocytosis Slight; Basophils % (A) 0 %; CH 32.5; Eosinophils # (A) 0.1 k/uL (0-0.7); Eosinophils % (A) 2 %; HCT 23.5 % (39.0-53.0); Luc # (Auto) 0.14; Luc % (Auto) 2; Lymphocytes # (A) 2.4 k/uL (1.0-4.8); Lymphocytes % (A) 32 %; MCH 31.9 pg (25.0-35.0); MCV 93.8 fL (80.0-100.0); Mean Platelet Volume 7.2; Monocytes # (A) 0.5 k/uL (0-1.0); Monocytes % (A) 6 %; Neutrophils # (A) 4.3 k/uL (1.3-7.7); Neutrophils % (A) 58 %; RDW 16.4 % (11.5-15.5); WBC 7.4 k/uL (3.8-10.6); WBC (Perox) 7.41
[2017-04-16 05:48] LABS: Anion Gap 7 mmol/L; Blood Urea Nitrogen 13 mg/dL (9-20); Calcium 8.4 mg/dL (8.4-10.2); Carbon Dioxide 19 mmol/L (22-30); Chloride 112 mmol/L (98-107); Glucose 132 mg/dL (74-99); Magnesium 1.8 mg/dL (1.6-2.3); Non-African American GFR(MDRD) >60 (>60 ml/min/1.73 sqM); Phosphorous 3.3 mg/dL (2.5-4.5); Potassium 3.4 mmol/L (3.5-5.1); Sodium 138 mmol/L (137-145)
[2017-04-16] MEDS ORDERED: Potassium Replacement Protocol 1 EACH MISC MISCELLANE PRN (06:00)
[2017-04-16] MEDS ORDERED: Magnesium Replacement Protocol 1 EACH MISC MISCELLANE PRN (06:01)
[2017-04-16 06:21] LABS: INR 1.1 (<1.2); Prothrombin Time 10.9 sec (9.0-12.0)
[2017-04-16] MEDS: MAGNESIUM SULFATE-D5W PMX 1 GM in DEXTROSE/WATER 1 100ML.BAG IVPB SCH ×2 (07:39→08:47)
[2017-04-16] MEDS: GLIMEPIRIDE 4 MG TAB PO SCH (07:39)
[2017-04-16 07:48] LABS: Glucose,Whole Blood 141 mg/dL (75-99)
[2017-04-16] MEDS: INSULIN DETEMIR 100 UNIT/ML 10 ML VIAL SQ SCH ×2 (08:20→20:17)
[2017-04-16] MEDS: INSULIN LISPRO (humaLOG) 300 UNIT/3 ML VIAL SQ SCH ×4 (08:21→20:20)
[2017-04-16] MEDS: TORSEMIDE 20 MG TAB PO SCH (08:22)
[2017-04-16] MEDS: POTASSIUM CHLORIDE ER 10 MEQ TAB.ER.PRT PO SCH (08:22)
[2017-04-16] MEDS: METOPROLOL SUCCINATE (ER) 25 MG TAB.ER.24H PO SCH (08:22)
[2017-04-16] MEDS: PANTOPRAZOLE 40 MG/10 ML VIAL IV SCH (08:22)
--- NOTE | 2017-04-16 09:39 | P.PN ---
Subjective Principal diagnosis: Patient is seen and examined in follow-up for symptomatic anemia from acute GI bleed 81-year-old male with past medical history of colon cancer and metastases to the liver status post chemotherapy and partial resection of the colon. 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 Patient presented to the emergency department after sustaining frequent events of bloody bowel movements over 1 day described as bright red without abdominal pain. Patient became symptomatic and decided to come to the hospital. He does not recall any similar event in the past. Patient required blood transfusion in the hospital due to significant drop in his hemoglobin with symptomatic anemia. Patient was admitted to the ICU for further care and close monitoring, currently awaiting colonoscopy today. Upon presentation his INR level was 2.2 however he reported fluctuating levels and that it was 3.38 earlier couple days before this was reversed with vitamin K. Patient denies any further bloody bowel movements overnight, patient just passed bowel movement and was very light brown mainly water due to bowel prep. Patient continues to denies any chest pain, shortness of breath, or abdominal pain, denies any nausea or vomiting. Blood sugar overall is controlled now, I communicated to the nurse to hold his morning dose of Levemir and oral hypoglycemic medication. Continue with insulin sliding scale for now Objective - Vital Signs Vital signs: Vital Signs Temp 97.9 F 04/16/17 04:00 Pulse 60 04/16/17 07:00 Resp 14 04/16/17 07:00 BP 165/74 04/16/17 07:00 Pulse Ox 100 04/16/17 07:59 Intake & Output 04/15/17 04/16/17 04/16/17 18:59 06:59 18:59 Intake Total 2700 2040 Output Total 1825 500 Balance 875 1540 Weight 145 kg 134 kg Intake: IV 240 240 0.9 240 240 Intake, IV Titration 100 500 Amount Magnesium Sulfate-D5w Pmx 100 1 gm In Dextrose/Water 1 100ml.bag @ 100 mls/hr IVPB Q1H [facility] Rx#: [id number] Potassium Chloride 10 meq 100 100 In Water For Injection 1 100ml.bag @ 100 mls/hr IVPB Q1H [facility] Rx#: [id number] Potassium Chloride 10 meq 200 Lidocaine 2% Inj 10 mg In Sodium Chloride 0.9% 100 ml @ 100 mls/hr IV Q1HR [facility] Rx#:[id number] Potassium Chloride 10 meq 100 Lidocaine 2% Inj 10 mg In Sodium Chloride 0.9% 100 ml @ 100 mls/hr IV Q1HR [facility] Rx#:[id number] Oral 2360 1300 Output: Urine 1825 300 Stool 200 Other: Voiding Method Bedpan Bedpan Urinal Urinal # Voids 1 0 # Bowel Movements 1 4 Constitutional: vital signs stable, Not in acute distress, pleasant, conversant Lungs: Clear to auscultation bilaterally, clear to percussion, normal respiratory effort no use of accessory muscles Cardiovascular: Regular rate and rhythm, no murmurs, no gallops, no rubs, no peripheral edema Gastrointestinal: Soft, no tenderness to palpation, no palpable hepatosplenomegally, bowel sounds positive, no abdominal wall hernias Extremities: No digital cyanosis or clubbing, peripheral pulses palpable and equal over bilateral radial arteries and dorsalis pedis artery, no calf muscle tenderness Psych: Alert, oriented to place, person and time - Labs CBC & Chem 7: 04/16/17 05:04 04/16/17 05:04 Labs: Abnormal Lab Results - Last 24 Hours (Table) 04/15/17 04/15/17 04/15/17 Range/Units 09:13 09:13 12:28 RBC 2.81 L (4.30-5.90) m/uL Hgb 8.8 L (13.0-17.5) gm/dL Hct 26.5 L (39.0-53.0) % RDW (11.5-15.5) % Potassium 3.4 L (3.5-5.1) mmol/L Chloride (98-107) mmol/L Carbon Dioxide (22-30) mmol/L Glucose (74-99) mg/dL POC Glucose (mg/dL) 146 H (75-99) mg/dL 04/15/17 04/15/17 04/15/17 Range/Units 15:00 15:00 18:05 RBC 2.61 L (4.30-5.90) m/uL Hgb 8.3 L (13.0-17.5) gm/dL Hct 24.9 L (39.0-53.0) % RDW 15.6 H (11.5-15.5) % Potassium 3.4 L (3.5-5.1) mmol/L Chloride (98-107) mmol/L Carbon Dioxide (22-30) mmol/L Glucose (74-99) mg/dL POC Glucose (mg/dL) 135 H (75-99) mg/dL 04/15/17 04/15/17 04/16/17 Range/Units 20:56 22:49 05:04 RBC 2.75 L 2.50 L (4.30-5.90) m/uL Hgb 8.6 L 8.0 L (13.0-17.5) gm/dL Hct 25.6 L 23.5 L (39.0-53.0) % RDW 16.4 H (11.5-15.5) % Potassium (3.5-5.1) mmol/L Chloride (98-107) mmol/L Carbon Dioxide (22-30) mmol/L Glucose (74-99) mg/dL POC Glucose (mg/dL) 159 H (75-99) mg/dL 04/16/17 04/16/17 Range/Units 05:04 07:45 RBC (4.30-5.90) m/uL Hgb (13.0-17.5) gm/dL Hct (39.0-53.0) % RDW (11.5-15.5) % Potassium 3.4 L (3.5-5.1) mmol/L Chloride 112 H (98-107) mmol/L Carbon Dioxide 19 L (22-30) mmol/L Glucose 132 H (74-99) mg/dL POC Glucose (mg/dL) 141 H (75-99) mg/dL Assessment and Plan (1) Acute blood loss anemia Narrative/Plan: Hemoglobin continues to trend down Patient received 4 units packed RBC during this hospital stay No further bloody bowel movements overnight Continue to monitor hemoglobin closely, keep hemoglobin above 8 transfuse as needed Status: Acute (2) Symptomatic anemia Narrative/Plan: Symptoms has resolved posttransfusion of 4 units packed RBC Continue to monitor hemoglobin closely as mentioned above Status: Acute (3) DVT prophylaxis Narrative/Plan: Avoid pharmacologic anticoagulation due to risk of GI bleeding Continue with mechanical anticoagulation prophylaxis Status: Acute (4) Diabetes 1.5, managed as type 2 Narrative/Plan: Controlled with oral hypoglycemic agents and Levemir Patient nurse to hold morning Levemir dose and oral hypoglycemic agent Continue with insulin sliding scale Status: Acute (5) GI bleed Narrative/Plan: No further bleeding overnight, hemoglobin continues to trend down Plans for colonoscopy today This could be possibly due to diverticular disease versus AVMs rule out recurrence of colon cancer Status: Acute (6) HTN (hypertension) Narrative/Plan: Blood pressure fluctuating currently controlled at 144/54 continue to monitor closely avoid hypotension Status: Acute (7) History of colon cancer Narrative/Plan: Patient reports that he has been cancer free for has surveillance with [facility] Patient is status post chemotherapy and partial resection of the colon Status: Acute (8) Warfarin-induced coagulopathy Narrative/Plan: 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 Patient is currently cancer free per his report, and has only one event of DVT in the past I recommend to continue to hold pharmacologic anticoagulation postdischarge and to discuss further management with his PCP Status: Acute Plan: Replace electrolytes potassium and magnesium per ICU protocol colonoscopy findings 5 mm ascending colon polyp status post removal by biopsy Scattered right-sided diverticulosis No evidence of active GI bleed. It seems that GI bleeding has resolved, stable for transfer to med/surg with cardiac tele, Hemoglobin check in AM
[2017-04-16] MEDS: LISINOPRIL 20 MG TAB PO SCH (09:59)
[2017-04-16 10:28] VITALS: BMI 38.9
--- NOTE | 2017-04-16 10:38 | P.PN ---
Subjective This is a very pleasant 81-year-old gentleman who follows with Dr. Guillen out of [place]. He has a history of diabetes mellitus, hypertension colon cancer in 2002 with resection, metastasis to the liver with resection and chemotherapy in 2004 with treatment at the [facility]. 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 He has a remote history of chronic tobacco use. He presented here to the emergency room yesterday after a 24-48 hour history of note in blood in his bowel movements. He also had developed diarrhea. He initially thought it was secondary to some beet soup that he had eaten. He did develop progressive weakness and a near syncopal episode after getting up from the toilet and walking to his bedroom. He received 2 units of packed red blood cells and his hemoglobin was 8.3 last evening. Currently he was 7.8 and he is on his third unit currently. His presenting INR was 2.2. He received vitamin K 5 mg 1. Current INR 1.6. He is seen today in consultation. He is awake and alert in no acute distress. He is feeling stronger today as compared to yesterday. He has continued to have bloody bowel movements however. He has been seen by GI services. He currently denies any chest pain, palpitations lightheadedness or dizziness. No shortness of breath, cough or congestion. He is maintaining good O2 saturations in the 90s on room air. He has been hemodynamically stable. Not requiring any pressors. The patient was seen and evaluated again today 04/15/2017 in follow-up in the intensive care unit. He remains awake and alert in no acute distress. He did receive a total of 4 units of packed red blood cells since admission. His current hemoglobin is 8.0. He has not had any further bloody bowel movements. He has a 0.9 normal saline at O. He is maintaining good O2 saturations in the 90s on 2 L/m per nasal cannula. The plan is for colonoscopy tomorrow morning. Denies any shortness of breath, cough or congestion. He is feeling stronger today as compared to yesterday. The patient was seen again today 04/16/2017 in follow-up in the intensive care unit. He is awake and alert in no acute distress. He has not had any further bleeding. He did have brown bowel movements to clear for his colonoscopy prep that is scheduled for noon today. No dizziness or lightheadedness. No shortness of breath. He has no other complaints. Hemodynamically stable. Current hemoglobin 8.0. Objective - Vital Signs Vital signs: Vital Signs Temp 97.7 F 04/16/17 08:54 Pulse 61 04/16/17 10:00 Resp 20 04/16/17 10:00 BP 146/68 04/16/17 10:00 Pulse Ox 98 04/16/17 10:00 Intake & Output 04/15/17 04/16/17 04/16/17 18:59 06:59 18:59 Intake Total 2700 2040 240 Output Total 1825 500 576 Balance 875 1540 -336 Weight 145 kg 134 kg 134 kg Intake: IV 240 240 40 0.9 240 240 40 Intake, IV Titration 100 500 200 Amount Magnesium Sulfate-D5w Pmx 100 100 1 gm In Dextrose/Water 1 100ml.bag @ 100 mls/hr IVPB Q1H [facility] Rx#: [id number] Potassium Chloride 10 meq 100 100 In Water For Injection 1 100ml.bag @ 100 mls/hr IVPB Q1H [facility] Rx#: [id number] Potassium Chloride 10 meq 200 Lidocaine 2% Inj 10 mg In Sodium Chloride 0.9% 100 ml @ 100 mls/hr IV Q1HR [facility] Rx#:[id number] Potassium Chloride 10 meq 100 100 Lidocaine 2% Inj 10 mg In Sodium Chloride 0.9% 100 ml @ 100 mls/hr IV Q1HR [facility] Rx#:[id number] Oral 2360 1300 Output: Urine 1825 300 575 Stool 200 Urine/Stool Mix 1 Other: Voiding Method Bedpan Bedpan Bedpan Urinal Urinal Urinal # Voids 1 0 # Bowel Movements 1 4 - Exam GENERAL EXAM: Pale, weak. No apparent distress. HEAD: Normocephalic. EYES: Normal reaction of pupils, equal size. NOSE: Clear with pink turbinates. THROAT: No erythema or exudates. NECK: No masses, no JVD. CHEST: No chest wall deformity. LUNGS: Equal air entry with no crackles, wheeze, rhonchi or dullness. CVS: S1 and S2 normal with no audible murmurs, regular rhythm. ABDOMEN: No hepatosplenomegaly, normal bowel sounds, no guarding or rigidity. SPINE: No scoliosis or deformity SKIN: No rashes CENTRAL NERVOUS SYSTEM: No focal deficits, tone is normal in all 4 extremities. Extremities: There is trace peripheral edema. No clubbing, no cyanosis. Peripheral pulses are intact. - Labs CBC & Chem 7: 04/16/17 05:04 04/16/17 05:04 Labs: Abnormal Lab Results - Last 24 Hours (Table) 04/15/17 04/15/17 04/15/17 Range/Units 12:28 15:00 15:00 RBC 2.61 L (4.30-5.90) m/uL Hgb 8.3 L (13.0-17.5) gm/dL Hct 24.9 L (39.0-53.0) % RDW 15.6 H (11.5-15.5) % Potassium 3.4 L (3.5-5.1) mmol/L Chloride (98-107) mmol/L Carbon Dioxide (22-30) mmol/L Glucose (74-99) mg/dL POC Glucose (mg/dL) 146 H (75-99) mg/dL 04/15/17 04/15/17 04/15/17 Range/Units 18:05 20:56 22:49 RBC 2.75 L (4.30-5.90) m/uL Hgb 8.6 L (13.0-17.5) gm/dL Hct 25.6 L (39.0-53.0) % RDW (11.5-15.5) % Potassium (3.5-5.1) mmol/L Chloride (98-107) mmol/L Carbon Dioxide (22-30) mmol/L Glucose (74-99) mg/dL POC Glucose (mg/dL) 135 H 159 H (75-99) mg/dL 04/16/17 04/16/17 04/16/17 Range/Units 05:04 05:04 07:45 RBC 2.50 L (4.30-5.90) m/uL Hgb 8.0 L (13.0-17.5) gm/dL Hct 23.5 L (39.0-53.0) % RDW 16.4 H (11.5-15.5) % Potassium 3.4 L (3.5-5.1) mmol/L Chloride 112 H (98-107) mmol/L Carbon Dioxide 19 L (22-30) mmol/L Glucose 132 H (74-99) mg/dL POC Glucose (mg/dL) 141 H (75-99) mg/dL Assessment and Plan Plan: Pression: #1 Acute gastrointestinal bleeding in a patient with a known history of diverticulosis as well as previous colon cancer and resection. #2 Colon cancer with liver metastasis treated with resection and chemotherapy at the [facility] in 2004. 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 #5 Hypertension. #6 Obesity. #7 Remote history of smoking. #8 History of sick sinus syndrome, status post permanent pacemaker implantation. Plan: The patient was seen and evaluated by Dr. Macdonald. He is currently stable with a hemoglobin of 8.0. Status post 4 units of packed red blood cells. The plan is for colonoscopy A. If there is no significant findings or active bleeding he could be transferred to the regular medical floor from the endoscopy suite. We' ll continue to follow and make further recommendations based on his clinical status.
[2017-04-16 12:07] LABS: Glucose,Whole Blood 144 mg/dL (75-99)
[2017-04-16] MEDS ORDERED: PROPOFOL 10 MG/ML 20 ML VIAL IV ONE (13:04)
[2017-04-16] MEDS ORDERED: IV FLUID CONTINUATION 300 ML IV ONE (13:15)
--- NOTE | 2017-04-16 14:07 | P.PCN ---
Date of Procedure: 04/16/17 Preoperative Diagnosis: Postoperative Diagnosis: Procedure(s) Performed: BRIEF HISTORY: Patient is a 81-year-old pleasant white male scheduled for an elective colonoscopy as a part of evaluation of acute lower GI bleed. He was admitted to the hospital 2 days ago and had multiple episodes of maroon colored stools and bright red blood per rectum and a total of 4 units of blood transfusion. He has prior history of colon cancer diagnosed in 2001 days status post surgery. Last colonoscopy according to the patient was 3 years ago and it was normal PROCEDURE PERFORMED: Colonoscopy with biopsy. PREOPERATIVE DIAGNOSIS: Acute lower GI bleed. IV sedation per Anesthesia. PROCEDURE: After informed consent was obtained, the patient, was brought into the endoscopy unit. IV sedation was administered by Anesthesia under continuous monitoring. Digital rectal examination was normal. Initially the Olympus CF- 160 flexible video colonoscope was then inserted in the rectum, gradually advanced into the cecum without any difficulty. Careful examination was performed as the scope was gradually being withdrawn. Ileocecal valve and the appendiceal orifice were visualized and appeared normal. Prep was excellent. Brown liquid stool noted throughout the entire colon but no active bleed seen. The terminal ileum was intubated which appeared normal. Mucosa of the cecum appeared normal. In the ascending colon there was a 5 mm polyp that was removed by biopsy. Rest of the, ascending colon, transverse colon, descending colon, sigmoid colon, and rectum appeared normal. Scattered left-sided diverticulosis seen but no evidence of active bleeding. Retroflexion was performed in the rectum and no lesions were seen. The patient tolerated the procedure well. IMPRESSION: 5 mm ascending colon polyp status post removal by biopsy Scattered right-sided diverticulosis No evidence of active GI bleed. RECOMMENDATIONS: Findings of this examination were discussed with the patient . Most likely he had an acute diverticular bleed that has since resolved. At this time will advance to soft diet. Hemoglobin in the morning. He can be transferred out of the ICU today. Implants: Indications for Procedure: Operative Findings: Description of Procedure:
[2017-04-16] MEDS: POTASSIUM CHLORIDE ER 20 MEQ TAB.ER PO SCH ×2 (16:58→18:43)
[2017-04-16 17:03] LABS: Glucose,Whole Blood 139 mg/dL (75-99)
[2017-04-16 20:12] LABS: Glucose,Whole Blood 178 mg/dL (75-99)
[2017-04-16] MEDS: NIACIN TR 500 MG CAPSULE.ER PO SCH (20:20)
[2017-04-16] MEDS: DILTIAZEM CD 300 MG CAP.ER.24H PO SCH (20:20)
[2017-04-17] MEDS: HYDROcodone/APAP 5-325MG 1 EACH TAB PO PRN ×2 (00:06→21:22)
[2017-04-17 07:08] LABS: Glucose,Whole Blood 117 mg/dL (75-99)
[2017-04-17 07:37] LABS: Magnesium 1.8 mg/dL (1.6-2.3); Potassium 3.2 mmol/L (3.5-5.1)
[2017-04-17] MEDS: INSULIN LISPRO (humaLOG) 300 UNIT/3 ML VIAL SQ SCH ×4 (07:45→21:21)
[2017-04-17 07:50] LABS: Anisocytosis Slight; Basophils % (A) 0 %; CH 31.6; CHCM 34.1; Eosinophils # (A) 0.1 k/uL (0-0.7); Eosinophils % (A) 1 %; HCT 24.1 % (39.0-53.0); HDW 3.53; HGB 8.3 gm/dL (13.0-17.5); Luc # (Auto) 0.14; Luc % (Auto) 2; Lymphocytes % (A) 23 %; MCH 32.1 pg (25.0-35.0); MCHC 34.3 g/dL (31.0-37.0); MCV 93.5 fL (80.0-100.0); Mean Platelet Volume 7.2; Monocytes # (A) 0.7 k/uL (0-1.0); Monocytes % (A) 9 %; Neutrophils # (A) 5.6 k/uL (1.3-7.7); Neutrophils % (A) 65 %; Poikilocytosis Slight; RBC 2.58 m/uL (4.30-5.90); RDW 16.4 % (11.5-15.5); WBC 8.5 k/uL (3.8-10.6); WBC (Perox) 8.97
[2017-04-17] MEDS: INSULIN DETEMIR 100 UNIT/ML 10 ML VIAL SQ SCH ×2 (08:08→21:21)
[2017-04-17] MEDS: TORSEMIDE 20 MG TAB PO SCH (08:09)
[2017-04-17] MEDS: POTASSIUM CHLORIDE ER 10 MEQ TAB.ER.PRT PO SCH (08:09)
[2017-04-17] MEDS: PANTOPRAZOLE 40 MG TABLET PO SCH (08:09)
[2017-04-17] MEDS: LISINOPRIL 20 MG TAB PO SCH (08:09)
[2017-04-17] MEDS: METOPROLOL SUCCINATE (ER) 25 MG TAB.ER.24H PO SCH (08:09)
[2017-04-17] MEDS ORDERED: POTASSIUM CHLORIDE ER 20 MEQ TAB.ER PO STA (08:59)
--- NOTE | 2017-04-17 11:39 | P.PN ---
Subjective This is a very pleasant 81-year-old gentleman who follows with Dr. Guillen out of [place]. He has a history of diabetes mellitus, hypertension colon cancer in 2002 with resection, metastasis to the liver with resection and chemotherapy in 2004 with treatment at the [facility]. 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 He has a remote history of chronic tobacco use. He presented here to the emergency room yesterday after a 24-48 hour history of note in blood in his bowel movements. He also had developed diarrhea. He initially thought it was secondary to some beet soup that he had eaten. He did develop progressive weakness and a near syncopal episode after getting up from the toilet and walking to his bedroom. He received 2 units of packed red blood cells and his hemoglobin was 8.3 last evening. Currently he was 7.8 and he is on his third unit currently. His presenting INR was 2.2. He received vitamin K 5 mg 1. Current INR 1.6. He is seen today in consultation. He is awake and alert in no acute distress. He is feeling stronger today as compared to yesterday. He has continued to have bloody bowel movements however. He has been seen by GI services. He currently denies any chest pain, palpitations lightheadedness or dizziness. No shortness of breath, cough or congestion. He is maintaining good O2 saturations in the 90s on room air. He has been hemodynamically stable. Not requiring any pressors. The patient was seen and evaluated again today 04/15/2017 in follow-up in the intensive care unit. He remains awake and alert in no acute distress. He did receive a total of 4 units of packed red blood cells since admission. His current hemoglobin is 8.0. He has not had any further bloody bowel movements. He has a 0.9 normal saline at O. He is maintaining good O2 saturations in the 90s on 2 L/m per nasal cannula. The plan is for colonoscopy tomorrow morning. Denies any shortness of breath, cough or congestion. He is feeling stronger today as compared to yesterday. The patient was seen again today 04/16/2017 in follow-up in the intensive care unit. He is awake and alert in no acute distress. He has not had any further bleeding. He did have brown bowel movements to clear for his colonoscopy prep that is scheduled for noon today. No dizziness or lightheadedness. No shortness of breath. He has no other complaints. Hemodynamically stable. Current hemoglobin 8.0. Patient is seen again today 04/17/2017 in follow-up on the regular medical floor. He is awake and alert in no acute distress. He did undergo colonoscopy which did not reveal any active GI bleeding. There was a 5 mm ascending colon polyp that was removed and biopsied. He was some scattered right-sided diverticulosis. He is not had any further bleeding. His current hemoglobin is 8.3. Objective - Vital Signs Vital signs: Vital Signs Temp 97.5 F L 04/17/17 07:00 Pulse 68 04/17/17 07:00 Resp 18 04/17/17 07:00 BP 156/69 04/17/17 07:00 Pulse Ox 95 04/17/17 07:00 Intake & Output 04/16/17 04/17/17 04/17/17 18:59 06:59 18:59 Intake Total 880 540 Output Total 1256 100 Balance -376 440 Weight 134 kg Intake: IV 430 40 0.9 180 40 Intake, IV Titration 200 Amount Magnesium Sulfate-D5w Pmx 100 1 gm In Dextrose/Water 1 100ml.bag @ 100 mls/hr IVPB Q1H [facility] Rx#: [id number] Potassium Chloride 10 meq 100 Lidocaine 2% Inj 10 mg In Sodium Chloride 0.9% 100 ml @ 100 mls/hr IV Q1HR [facility] Rx#:[id number] Oral 250 500 Output: Urine 1255 100 Urine/Stool Mix 1 Other: Voiding Method Bedpan Bedpan Bedpan Urinal Urinal Urinal Incontinent Incontinent Incontinent # Voids 1 1 # Bowel Movements 1 1 - Exam GENERAL EXAM: Pale, weak. No apparent distress. HEAD: Normocephalic. EYES: Normal reaction of pupils, equal size. NOSE: Clear with pink turbinates. THROAT: No erythema or exudates. NECK: No masses, no JVD. CHEST: No chest wall deformity. LUNGS: Equal air entry with no crackles, wheeze, rhonchi or dullness. CVS: S1 and S2 normal with no audible murmurs, regular rhythm. ABDOMEN: No hepatosplenomegaly, normal bowel sounds, no guarding or rigidity. SPINE: No scoliosis or deformity SKIN: No rashes CENTRAL NERVOUS SYSTEM: No focal deficits, tone is normal in all 4 extremities. Extremities: There is trace peripheral edema. No clubbing, no cyanosis. Peripheral pulses are intact. - Labs CBC & Chem 7: 04/17/17 06:29 04/17/17 06:29 Labs: Abnormal Lab Results - Last 24 Hours (Table) 04/16/17 04/16/17 04/16/17 Range/Units 12:06 17:01 20:11 RBC (4.30-5.90) m/uL Hgb (13.0-17.5) gm/dL Hct (39.0-53.0) % RDW (11.5-15.5) % Potassium (3.5-5.1) mmol/L POC Glucose (mg/dL) 144 H 139 H 178 H (75-99) mg/dL 04/17/17 04/17/17 04/17/17 Range/Units 06:29 06:29 07:06 RBC 2.58 L (4.30-5.90) m/uL Hgb 8.3 L (13.0-17.5) gm/dL Hct 24.1 L (39.0-53.0) % RDW 16.4 H (11.5-15.5) % Potassium 3.2 L (3.5-5.1) mmol/L POC Glucose (mg/dL) 117 H (75-99) mg/dL Assessment and Plan Plan: Impression: #1 Acute gastrointestinal bleeding in a patient with a known history of diverticulosis as well as previous colon cancer and resection. Status post colonoscopy on 04/16/2017 which revealed no active GI bleeding. He did have a 5 mm polyp removed from the ascending colon. #2 Colon cancer with liver metastasis treated with resection and chemotherapy [facility] in 2002, 2004. 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 #5 Hypertension. #6 Obesity. #7 Remote history of smoking. #8 History of sick sinus syndrome, status post permanent pacemaker implantation. Plan: The patient was seen and evaluated by Dr. Macdonald. He remains stable from the pulmonary and critical care standpoint. We'll see the patient on as-needed basis.
[2017-04-17 12:02] LABS: Glucose,Whole Blood 158 mg/dL (75-99)
--- NOTE | 2017-04-17 12:44 | P.PN ---
Subjective Principal diagnosis: Patient is seen and examined in follow-up for symptomatic anemia from acute GI bleed due to diverticulosis 81-year-old male with past medical history of colon cancer and metastases to the liver status post chemotherapy and partial resection of the colon. 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 Patient presented to the emergency department after sustaining frequent events of bloody bowel movements over 1 day described as bright red without abdominal pain. Patient became symptomatic and decided to come to the hospital. He does not recall any similar event in the past. Patient required blood transfusion in the hospital due to significant drop in his hemoglobin with symptomatic anemia. Patient was admitted to the ICU for further care and close monitoring, currently awaiting colonoscopy today. Upon presentation his INR level was 2.2 however he reported fluctuating levels and that it was 3.38 earlier couple days before this was reversed with vitamin K. patient was seen and examined today, no reports of ongoing GI bleeding, hemoglobin improving. Patient denies any abdominal pain any melena or bloody bowel movements. Tolerating diet area however he is feeling dizzy when he gets up, he tried to work with physical therapy to ambulate and he couldn't due to dizziness and unsteady gait. I discussed with the patient and he is open to consider subacute rehab placement. Otherwise he is denying any chest pain headache, trouble breathing, or abdominal pain. Objective - Vital Signs Vital signs: Vital Signs Temp 97.5 F L 04/17/17 07:00 Pulse 68 04/17/17 07:00 Resp 18 04/17/17 07:00 BP 156/69 04/17/17 07:00 Pulse Ox 95 04/17/17 07:00 Intake & Output 04/16/17 04/17/17 04/17/17 18:59 06:59 18:59 Intake Total 880 540 Output Total 1256 100 Balance -376 440 Weight 134 kg Intake: IV 430 40 0.9 180 40 Intake, IV Titration 200 Amount Magnesium Sulfate-D5w Pmx 100 1 gm In Dextrose/Water 1 100ml.bag @ 100 mls/hr IVPB Q1H SELINA Rx#: [id number] Potassium Chloride 10 meq 100 Lidocaine 2% Inj 10 mg In Sodium Chloride 0.9% 100 ml @ 100 mls/hr IV Q1HR SELINA Rx#:[id number] Oral 250 500 Output: Urine 1255 100 Urine/Stool Mix 1 Other: Voiding Method Bedpan Bedpan Bedpan Urinal Urinal Urinal Incontinent Incontinent Incontinent # Voids 1 1 # Bowel Movements 1 1 Constitutional: Not in acute distress, pleasant, conversant, vital signs stable Respiratory: Clear to auscultation bilaterally, no wheezes, no crackles, no rhonchi, clear to percussion, normal respiratory effort without use of accessory muscles Cardiovascular: Regular rate and rhythm, no murmurs, no gallops, no rubs, no peripheral leg edema , no JVD Abdomen: Bowel sounds positive, soft, no tenderness to palpation, no palpable masses, no palpable hepatosplenomegally, left paraumbilical hernia reducible and soft Extremities: No digital cyanosis, ischemia or clubbing, no calf muscle tenderness bilaterally, gait is unsteady due to dizziness Psych: Alert, oriented to place, person and time - Labs CBC & Chem 7: 04/17/17 06:29 04/17/17 06:29 Labs: Abnormal Lab Results - Last 24 Hours (Table) 04/16/17 04/16/17 04/17/17 Range/Units 17:01 20:11 06:29 RBC (4.30-5.90) m/uL Hgb (13.0-17.5) gm/dL Hct (39.0-53.0) % RDW (11.5-15.5) % Potassium 3.2 L (3.5-5.1) mmol/L POC Glucose (mg/dL) 139 H 178 H (75-99) mg/dL 04/17/17 04/17/17 04/17/17 Range/Units 06:29 07:06 12:01 RBC 2.58 L (4.30-5.90) m/uL Hgb 8.3 L (13.0-17.5) gm/dL Hct 24.1 L (39.0-53.0) % RDW 16.4 H (11.5-15.5) % Potassium (3.5-5.1) mmol/L POC Glucose (mg/dL) 117 H 158 H (75-99) mg/dL Assessment and Plan (1) Acute blood loss anemia Narrative/Plan: Hemoglobin is stable today and trending up Patient received 4 units packed RBC during this hospital stay No further bloody bowel movements 48 hours Continue to monitor hemoglobin closely, keep hemoglobin above 8 transfuse as needed Status: Acute (2) Symptomatic anemia Narrative/Plan: Patient continues to feel postural dizziness with difficulty ambulating this could be in part related to his anemia, acute hospitalization and GI bleeding is also another factor resulting and debility Otherwise denies any chest pain or trouble breathing Continue to monitor hemoglobin closely Status: Acute (3) DVT prophylaxis Narrative/Plan: Avoid pharmacologic anticoagulation due to risk of GI bleeding Continue with mechanical anticoagulation prophylaxis Status: Acute (4) Diabetes 1.5, managed as type 2 Narrative/Plan: Controlled now continue with Levemir and insulin sliding scale Status: Acute (5) GI bleed Narrative/Plan: Secondary to diverticular disease Colonoscopy per GI, polypectomy performed await biopsy results Status: Resolved (6) HTN (hypertension) Narrative/Plan: Blood pressure fluctuating currently controlled continue to monitor closely avoid hypotension Status: Acute (7) History of colon cancer Narrative/Plan: Patient reports that he has been cancer free for has surveillance with [facility] Patient is status post chemotherapy and partial resection of the colon Status: Resolved (8) Warfarin-induced coagulopathy Narrative/Plan: 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 Patient is currently cancer free per his report, and has only one event of DVT in the past I recommend to continue to hold pharmacologic anticoagulation postdischarge and to discuss further management with his PCP/oncology doc regarding anticoagulation risks and benefits Status: Acute Plan: Patient is fall risk due to unsteady gait posthospitalization for GI bleed Await formal physical therapy evaluation patient possibly will benefit from subacute rehab placement Consult to pillowcase folder to assist with discharge planning Continue to monitor hemoglobin 5 mm ascending colon polyp status post removal by biopsy follow-up Discharge planning placement at subacute rehab Time with Patient: Greater than 30
[2017-04-17 17:27] LABS: Glucose,Whole Blood 194 mg/dL (75-99)
[2017-04-17 20:06] LABS: Glucose,Whole Blood 194 mg/dL (75-99)
--- NOTE | 2017-04-17 20:29 | PN ---
DATE OF SERVICE: 04/17/17 The patient is an 82 -year-old pleasant white male admitted to the hospital with acute GI bleed. He had multiple episodes of bright red blood per rectum. He dropped his hemoglobin by 4 gm. He received blood transfusion. He was on Coumadin which has been stopped and coagulopathy has been reversed. He underwent colonoscopy by me yesterday which showed evidence of left sided diverticulosis but no active bleeding. He had a 5 mm ascending colon polyp that was removed. This morning he is feeling good. No further episodes of bleeding. No abdominal pain. On physical examination, he appears comfortable in no apparent distress. Vital signs are stable. Blood pressure 160/61. Pulse rate 82. Temperature 97.8. HEENT: Unremarkable. Conjunctivae pink. Sclerae anicteric. Oral cavity no lesions. Neck no JVD or lymph node enlargement. Chest clear to auscultation. Heart regular rate and rhythm. Abdomen is soft. Bowel sounds positive. No organomegaly. Extremities no pedal edema. Skin no rashes. Neurological: Alert and oriented times three. No focal deficits. Labs: Hemoglobin today is 8.3. WBC 8.5. Platelets are 252. Basic metabolic panel was not done. IMPRESSION: 1. Acute lower gastrointestinal bleed, possibly diverticula in etiology which presently resolved status post colonoscopy yesterday that showed left sided diverticulosis with no active bleeding. 2. History of colon cancer with liver Mets diagnosed in 2002 status post surgery with liver infection and remains in clinical remission. 3. History of deep venous thrombosis in the past, on Coumadin, currently on hold. RECOMMENDATIONS: 1. Advance to a soft diet. 2. The patient can be discharged today with outpatient follow-up with family physician in two weeks. 3. Okay to restart Coumadin at the present time since the bleeding has completely resolved. Thank you for this consultation. FRANCK
[2017-04-17] MEDS: DILTIAZEM CD 300 MG CAP.ER.24H PO SCH (21:21)
[2017-04-17] MEDS: NIACIN TR 500 MG CAPSULE.ER PO SCH (21:21)
[2017-04-18 07:58] LABS: Glucose,Whole Blood 114 mg/dL (75-99)
[2017-04-18] MEDS: INSULIN DETEMIR 100 UNIT/ML 10 ML VIAL SQ SCH ×2 (08:31→20:43)
[2017-04-18] MEDS: METOPROLOL SUCCINATE (ER) 25 MG TAB.ER.24H PO SCH (08:32)
[2017-04-18] MEDS: POTASSIUM CHLORIDE ER 10 MEQ TAB.ER.PRT PO SCH (08:32)
[2017-04-18] MEDS: LISINOPRIL 20 MG TAB PO SCH (08:32)
[2017-04-18] MEDS: PANTOPRAZOLE 40 MG TABLET PO SCH (08:32)
[2017-04-18] MEDS: INSULIN LISPRO (humaLOG) 300 UNIT/3 ML VIAL SQ SCH ×4 (08:33→20:41)
[2017-04-18] MEDS: TORSEMIDE 20 MG TAB PO SCH (10:12)
[2017-04-18 11:45] LABS: Glucose,Whole Blood 197 mg/dL (75-99)
[2017-04-18 17:15] LABS: Glucose,Whole Blood 143 mg/dL (75-99)
--- NOTE | 2017-04-18 20:05 | P.PN ---
Subjective Principal diagnosis: Patient is seen and examined in follow-up for symptomatic anemia from acute GI bleed due to diverticulosis 81-year-old male with past medical history of colon cancer and metastases to the liver status post chemotherapy and partial resection of the colon. 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 Patient presented to the emergency department after sustaining frequent events of bloody bowel movements over 1 day described as bright red without abdominal pain. Patient became symptomatic and decided to come to the hospital. He does not recall any similar event in the past. Patient required blood transfusion in the hospital due to significant drop in his hemoglobin with symptomatic anemia. Patient was admitted to the ICU for further care and close monitoring, the later was transferred to stepdown unit after performing a colonoscopy which has revealed diverticular disease. Upon presentation his INR level was 2.2 however he reported fluctuating levels and that it was 3.38 earlier couple days before this was reversed with vitamin K. Patient is seen and examined today, denies any GI bleeding, however he continues to be unsteady when he stands up and feeling dizzy. Await placement in subacute rehab. Otherwise patient reports no chest pain or trouble breathing and tolerating by mouth intake Objective - Vital Signs Vital signs: Vital Signs Temp 98.1 F 04/18/17 15:00 Pulse 75 04/18/17 15:00 Resp 18 04/18/17 15:00 BP 154/67 04/18/17 15:00 Pulse Ox 97 04/18/17 15:00 Intake & Output 04/18/17 04/18/17 04/19/17 06:59 18:59 06:59 Intake Total 720 Output Total 100 600 Balance 620 -600 Intake: IV 320 0.9 320 Oral 400 Output: Urine 500 Stool 100 100 Other: Voiding Method Bedpan Bedpan Urinal Urinal Incontinent Incontinent # Voids 2 1 # Bowel Movements 1 Constitutional: vital signs stable, Not in acute distress, pleasant, conversant Lungs: Clear to auscultation bilaterally, clear to percussion, normal respiratory effort no use of accessory muscles Cardiovascular: Regular rate and rhythm, no murmurs, no gallops, no rubs, no peripheral edema Gastrointestinal: Soft, no tenderness to palpation, no palpable hepatosplenomegally, bowel sounds positive, no abdominal wall hernias Extremities: no calf muscle tenderness Psych: Alert, oriented to place, person and time - Labs CBC & Chem 7: 04/17/17 06:29 04/17/17 06:29 Labs: Abnormal Lab Results - Last 24 Hours (Table) 04/17/17 04/18/17 04/18/17 Range/Units 20:05 07:54 11:40 POC Glucose (mg/dL) 194 H 114 H 197 H (75-99) mg/dL 04/18/17 Range/Units 17:13 POC Glucose (mg/dL) 143 H (75-99) mg/dL Assessment and Plan (1) Acute blood loss anemia Narrative/Plan: Hemoglobin is stable Patient received 4 units packed RBC during this hospital stay No further bloody bowel movements Continue to monitor hemoglobin closely, keep hemoglobin above 8 transfuse as needed Status: Acute (2) Symptomatic anemia Narrative/Plan: Patient continues to feel postural dizziness with difficulty ambulating this could be in part related to his anemia, acute hospitalization and GI bleeding is also another factor resulting and debility Otherwise denies any chest pain or trouble breathing Continue to monitor hemoglobin closely Status: Acute (3) DVT prophylaxis Narrative/Plan: Avoid pharmacologic anticoagulation due to risk of GI bleeding Continue with mechanical anticoagulation prophylaxis Status: Acute (4) Diabetes 1.5, managed as type 2 Narrative/Plan: Controlled now continue with Levemir and insulin sliding scale Status: Acute (5) GI bleed Narrative/Plan: Secondary to diverticular disease Colonoscopy per GI, polypectomy performed await biopsy results Status: Resolved (6) HTN (hypertension) Narrative/Plan: Blood pressure fluctuating currently controlled continue to monitor closely avoid hypotension Status: Acute (7) History of colon cancer Narrative/Plan: Patient reports that he has been cancer free for has surveillance with [facility] Patient is status post chemotherapy and partial resection of the colon Status: Resolved (8) Warfarin-induced coagulopathy Narrative/Plan: 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
[2017-04-18 20:34] LABS: Glucose,Whole Blood 198 mg/dL (75-99)
[2017-04-18] MEDS: DILTIAZEM CD 300 MG CAP.ER.24H PO SCH (20:40)
[2017-04-18] MEDS: NIACIN TR 500 MG CAPSULE.ER PO SCH (20:40)
[2017-04-19 07:20] LABS: Glucose,Whole Blood 153 mg/dL (75-99)
[2017-04-19] MEDS: INSULIN LISPRO (humaLOG) 300 UNIT/3 ML VIAL SQ SCH ×4 (08:00→20:37)
[2017-04-19] MEDS: PANTOPRAZOLE 40 MG TABLET PO SCH (08:01)
[2017-04-19 08:24] LABS: Basophils % (A) 0 %; CH 32.3; CHCM 34.5; Eosinophils # (A) 0.2 k/uL (0-0.7); Eosinophils % (A) 2 %; HCT 22.9 % (39.0-53.0); HDW 3.83; HGB 7.5 gm/dL (13.0-17.5); Luc # (Auto) 0.11; Luc % (Auto) 1; Lymphocytes # (A) 1.5 k/uL (1.0-4.8); Lymphocytes % (A) 19 %; MCH 31.1 pg (25.0-35.0); MCHC 32.8 g/dL (31.0-37.0); MCV 94.6 fL (80.0-100.0); Mean Platelet Volume 7.2; Monocytes # (A) 0.6 k/uL (0-1.0); Monocytes % (A) 7 %; Neutrophils # (A) 5.7 k/uL (1.3-7.7); Neutrophils % (A) 71 %; Poikilocytosis Slight; RBC 2.42 m/uL (4.30-5.90); RDW 15.5 % (11.5-15.5); WBC 8.1 k/uL (3.8-10.6); WBC (Perox) 8.37
[2017-04-19 09:07] LABS: Anion Gap 10 mmol/L; Blood Urea Nitrogen 12 mg/dL (9-20); Calcium 8.6 mg/dL (8.4-10.2); Carbon Dioxide 19 mmol/L (22-30); Chloride 110 mmol/L (98-107); Glucose 130 mg/dL (74-99); Non-African American GFR(MDRD) >60 (>60 ml/min/1.73 sqM); Sodium 139 mmol/L (137-145)
[2017-04-19 09:18] LABS: Potassium 2.8 mmol/L (3.5-5.1)
[2017-04-19] MEDS ORDERED: POTASSIUM CHLORIDE ER 20 MEQ TAB.ER PO STA (09:24)
[2017-04-19] MEDS: INSULIN DETEMIR 100 UNIT/ML 10 ML VIAL SQ SCH ×2 (09:43→20:37)
[2017-04-19] MEDS: TORSEMIDE 20 MG TAB PO SCH (09:45)
[2017-04-19] MEDS: LISINOPRIL 20 MG TAB PO SCH (09:45)
[2017-04-19] MEDS: METOPROLOL SUCCINATE (ER) 25 MG TAB.ER.24H PO SCH (09:45)
[2017-04-19] MEDS: POTASSIUM CHLORIDE ER 10 MEQ TAB.ER.PRT PO SCH (09:46)
[2017-04-19] MEDS: POTASSIUM CHLORIDE 10 MEQ, LIDOCAINE 2% INJ 10 MG in SODIUM CHLORIDE 0.9% 100 ML IVPB SCH ×4 (10:56→15:06)
[2017-04-19 11:31] LABS: Glucose,Whole Blood 164 mg/dL (75-99)
--- NOTE | 2017-04-19 13:37 | XR ---
EXAMINATION TYPE: XR chest 2V DATE OF EXAM: 04/19/2017 COMPARISON: 12/30/2015 TECHNIQUE: PA and lateral views submitted. HISTORY: ECF placement FINDINGS: Pleural-based thickening along the left lower lung noted. Cardiac device and atherosclerotic change a gwendolyn. No pneumothorax or interstitial edema. Right lung is clear. Hypertrophic and degenerative zepeda e of the spine noted. IMPRESSION: 1. Pleural-based thickening lower left chest correlate clinically.
[2017-04-19 17:14] LABS: Glucose,Whole Blood 169 mg/dL (75-99)
--- NOTE | 2017-04-19 18:09 | XR ---
EXAMINATION TYPE: XR knee complete RT DATE OF EXAM: 04/19/2017 COMPARISON: NONE HISTORY: Knee pain TECHNIQUE: 3 views FINDINGS: There is extensive vascular calcification. There is narrowing of patellofemoral joint space with spurring. I see no fracture nor dislocation. There is spurring of the femoral and tibial condyl es. IMPRESSION: Osteoarthritic changes. Vascular calcification. No fracture.
--- NOTE | 2017-04-19 19:20 | P.PN ---
Subjective Principal diagnosis: Patient is seen and examined in follow-up for symptomatic anemia from acute GI bleed due to diverticulosis, postural dizziness 81-year-old male with past medical history of colon cancer and metastases to the liver status post chemotherapy and partial resection of the colon. 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 Patient presented to the emergency department after sustaining frequent events of bloody bowel movements over 1 day described as bright red without abdominal pain. Patient became symptomatic and decided to come to the hospital. He does not recall any similar event in the past. Patient required blood transfusion in the hospital due to significant drop in his hemoglobin with symptomatic anemia. Patient was admitted to the ICU for further care and close monitoring, the later was transferred to stepdown unit after performing a colonoscopy which has revealed diverticular disease. Upon presentation his INR level was 2.2 however he reported fluctuating levels and that it was 3.38 earlier couple days before this was reversed with vitamin K. Patient is seen and examined today he continues to have difficulty with ambulating due to postural dizziness. He reports no chest pain or trouble breathing while resting however he feels very fatigued with the slightest activity. Is tolerating by mouth intake no nausea or vomiting denies any ongoing GI bleed. Patient is complaining today of right knee swelling due to poor positioning of his right lower extremity while transferred. Patient is afebrile Objective - Vital Signs Vital signs: Vital Signs Temp 98.1 F 04/19/17 17:03 Pulse 63 04/19/17 17:03 Resp 17 04/19/17 17:03 BP 160/70 04/19/17 17:03 Pulse Ox 98 04/19/17 17:03 Intake & Output 04/19/17 04/19/17 04/20/17 06:59 18:59 06:59 Intake Total 1010 120 Output Total 400 750 Balance 610 -630 Weight 134 kg Intake: Oral 1010 120 Blood Product 0 Rc Pheresis 2 As3 Unit 0 [id number] Output: Urine 400 650 Stool 100 Other: Voiding Method Bedpan Bedpan Urinal Urinal Incontinent Incontinent # Voids 1 # Bowel Movements 1 - Exam Constitutional: vital signs stable, Not in acute distress, pleasant, conversant Lungs: Clear to auscultation bilaterally, clear to percussion, normal respiratory effort no use of accessory muscles Cardiovascular: Regular rate and rhythm, no murmurs, no gallops, no rubs, no peripheral edema Extremities: No digital cyanosis or clubbing, no calf muscle tenderness, right knee swelling no skin changes no warmth to the touch however tender to palpation with tender passive range of motion. Psych: Alert, oriented to place, person and time - Labs CBC & Chem 7: 04/19/17 07:30 04/19/17 07:30 Labs: Abnormal Lab Results - Last 24 Hours (Table) 04/18/17 04/19/17 04/19/17 Range/Units 20:28 07: 07:30 RBC 2.42 L (4.30-5.90) m/uL Hgb 7.5 L (13.0-17.5) gm/dL Hct 22.9 L (39.0-53.0) % Potassium (3.5-5.1) mmol/L Chloride (98-107) mmol/L Carbon Dioxide (22-30) mmol/L Glucose (74-99) mg/dL POC Glucose (mg/dL) 198 H 153 H (75-99) mg/dL Crossmatch 04/19/17 04/19/17 04/19/17 Range/Units 07:30 11:12 14:11 RBC (4.30-5.90) m/uL Hgb (13.0-17.5) gm/dL Hct (39.0-53.0) % Potassium 2.8 L* (3.5-5.1) mmol/L Chloride 110 H (98-107) mmol/L Carbon Dioxide 19 L (22-30) mmol/L Glucose 130 H (74-99) mg/dL POC Glucose (mg/dL) 164 H (75-99) mg/dL Crossmatch See Detail 04/19/17 Range/Units 17:13 RBC (4.30-5.90) m/uL Hgb (13.0-17.5) gm/dL Hct (39.0-53.0) % Potassium (3.5-5.1) mmol/L Chloride (98-107) mmol/L Carbon Dioxide (22-30) mmol/L Glucose (74-99) mg/dL POC Glucose (mg/dL) 169 H (75-99) mg/dL Crossmatch Assessment and Plan (1) Acute blood loss anemia Narrative/Plan: Hemoglobin is trending down today and then 7.5 without evidence of jugular bleeding Patient received 4 units packed RBC during this hospital stay No further bloody bowel movements Continue to monitor hemoglobin closely, keep hemoglobin above 8 transfuse as needed Status: Acute (2) Symptomatic anemia Narrative/Plan: Patient continues to feel postural dizziness with difficulty ambulating this could be in part related to his anemia, acute hospitalization and GI bleeding is also another factor resulting and debility Patient hemoglobin dropped today to 7.5 possibly some of his symptoms are related to anemia as he had baseline. 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 Also consulted for possible arthrocentesis Discharge planning placement to subacute rehab transfusion of 1 units of blood today to help with his symptomatic anemia no evidence of ongoing GI bleed
[2017-04-19 20:26] LABS: Glucose,Whole Blood 271 mg/dL (75-99)
[2017-04-19] MEDS: NIACIN TR 500 MG CAPSULE.ER PO SCH (20:35)
[2017-04-19] MEDS: DILTIAZEM CD 300 MG CAP.ER.24H PO SCH (20:35)
[2017-04-19] MEDS: HYDROcodone/APAP 5-325MG 1 EACH TAB PO PRN (20:35)
[2017-04-19] MEDS ORDERED: Potassium Replacement Protocol 1 EACH MISC MISCELLANE PRN (22:07)
[2017-04-20] MEDS: POTASSIUM CHLORIDE 10 MEQ, LIDOCAINE 2% INJ 10 MG in SODIUM CHLORIDE 0.9% 100 ML IV SCH ×5 (01:21→14:30)
[2017-04-20] MEDS: HYDROcodone/APAP 5-325MG 1 EACH TAB PO PRN ×2 (02:40→22:40)
[2017-04-20 07:42] LABS: Glucose,Whole Blood 113 mg/dL (75-99)
[2017-04-20 08:16] LABS: Anion Gap 10 mmol/L; Blood Urea Nitrogen 12 mg/dL (9-20); Calcium 8.6 mg/dL (8.4-10.2); Carbon Dioxide 22 mmol/L (22-30); Chloride 110 mmol/L (98-107); Glucose 87 mg/dL (74-99); Non-African American GFR(MDRD) >60 (>60 ml/min/1.73 sqM); Sodium 142 mmol/L (137-145)
[2017-04-20 08:20] LABS: Potassium 2.9 mmol/L (3.5-5.1)
[2017-04-20] MEDS: INSULIN LISPRO (humaLOG) 300 UNIT/3 ML VIAL SQ SCH ×4 (08:22→22:41)
[2017-04-20] MEDS: METOPROLOL SUCCINATE (ER) 25 MG TAB.ER.24H PO SCH (08:28)
[2017-04-20] MEDS: POTASSIUM CHLORIDE ER 10 MEQ TAB.ER.PRT PO SCH (08:28)
[2017-04-20] MEDS: INSULIN DETEMIR 100 UNIT/ML 10 ML VIAL SQ SCH ×2 (08:28→22:41)
[2017-04-20] MEDS: PANTOPRAZOLE 40 MG TABLET PO SCH (08:28)
[2017-04-20] MEDS: LISINOPRIL 20 MG TAB PO SCH (08:28)
[2017-04-20] MEDS: TORSEMIDE 20 MG TAB PO SCH (08:29)
[2017-04-20 09:23] LABS: CH 31.9; CHCM 33.8; HCT 24.2 % (39.0-53.0); HDW 3.86; HGB 8.1 gm/dL (13.0-17.5); Hypochromasia Slight; MCH 31.7 pg (25.0-35.0); MCHC 33.3 g/dL (31.0-37.0); MCV 95.1 fL (80.0-100.0); Mean Platelet Volume 7.2; Poikilocytosis Slight; RBC 2.54 m/uL (4.30-5.90); RDW 15.5 % (11.5-15.5); WBC 7.7 k/uL (3.8-10.6)
[2017-04-20] MEDS: POTASSIUM CHLORIDE ER 20 MEQ TAB.ER PO SCH ×2 (10:11→11:27)
[2017-04-20 11:19] LABS: Glucose,Whole Blood 181 mg/dL (75-99)
[2017-04-20] MEDS ORDERED: POTASSIUM CHLORIDE 10 MEQ in WATER FOR INJECTION 1 100ML.BAG IVPB SCH (12:30)
--- NOTE | 2017-04-20 16:26 | P.PN ---
Subjective Principal diagnosis: patient seen and examined in follow up for symptomatic anemia and hypokalemia 81-year-old male with past medical history of colon cancer and metastases to the liver status post chemotherapy and partial resection of the colon. 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 Patient presented to the emergency department after sustaining frequent events of bloody bowel movements over 1 day described as bright red without abdominal pain. Patient became symptomatic and decided to come to the hospital. He does not recall any similar event in the past. Patient required blood transfusion in the hospital due to significant drop in his hemoglobin with symptomatic anemia. Patient was admitted to the ICU for further care and close monitoring, the later was transferred to stepdown unit after performing a colonoscopy which has revealed diverticular disease. Upon presentation his INR level was 2.2 however he reported fluctuating levels and that it was 3.38 earlier couple days before this was reversed with vitamin K. Patient is seen and examined today . Reports resolution of symptoms of dizziness and feels better since the blood transfusion. Patient is still reporting right knee pain and swelling, x-ray results were reviewed and showed osteoarthritis without any acute fractures. Otherwise denies any nausea vomiting chest pain or trouble breathing Objective - Vital Signs Vital signs: Vital Signs Temp 98 F 04/20/17 15:00 Pulse 74 04/20/17 15:00 Resp 20 04/20/17 15:00 BP 156/71 04/20/17 15:00 Pulse Ox 97 04/20/17 15:00 Intake & Output 04/19/17 04/20/17 04/20/17 18:59 06:59 18:59 Intake Total 120 310 Output Total 750 250 Balance -630 60 Weight 134 kg Intake: Oral 120 Blood Product 0 310 Rc Pheresis 2 As3 Unit 0 310 [id number] Output: Urine 650 250 Stool 100 Other: Voiding Method Bedpan Bedpan Urinal Urinal Incontinent Incontinent # Voids 1 4 2 # Bowel Movements 2 Constitutional: vital signs stable, Not in acute distress, pleasant, conversant Lungs: Clear to auscultation bilaterally, normal respiratory effort no use of accessory muscles Cardiovascular: Regular rate and rhythm, no murmurs, no gallops, no rubs, no peripheral edema Extremities: No digital cyanosis or clubbing, no calf muscle tenderness, right knee swelling no warmth, or tenderness to palpation no erythema. Limited range of motion due to pain over the right knee Psych: Alert, oriented to place, person and time - Labs CBC & Chem 7: 04/20/17 07:11 04/20/17 07:11 Labs: Abnormal Lab Results - Last 24 Hours (Table) 04/19/17 04/19/17 04/19/17 Range/Units 14:11 17:13 20:17 RBC (4.30-5.90) m/uL Hgb (13.0-17.5) gm/dL Hct (39.0-53.0) % Potassium (3.5-5.1) mmol/L Chloride (98-107) mmol/L POC Glucose (mg/dL) 169 H 271 H (75-99) mg/dL Crossmatch See Detail 04/19/17 04/20/17 04/20/17 Range/Units 21:21 07:11 07:11 RBC 2.54 L (4.30-5.90) m/uL Hgb 8.1 L (13.0-17.5) gm/dL Hct 24.2 L (39.0-53.0) % Potassium 2.9 L* 2.9 L* (3.5-5.1) mmol/L Chloride 110 H (98-107) mmol/L POC Glucose (mg/dL) (75-99) mg/dL Crossmatch 04/20/17 04/20/17 Range/Units 07:23 11:12 RBC (4.30-5.90) m/uL Hgb (13.0-17.5) gm/dL Hct (39.0-53.0) % Potassium (3.5-5.1) mmol/L Chloride (98-107) mmol/L POC Glucose (mg/dL) 113 H 181 H (75-99) mg/dL Crossmatch Assessment and Plan (1) Acute blood loss anemia Narrative/Plan: Hemoglobin improved post transfusion, patient received total of 5 units during this hospital stay, when units was given overnight No evidence of ongoing GI bleeds Patient reports resolution of dizziness and he feels more energetic post transfusion Continue to monitor hemoglobin closely and transfuse for symptomatic anemia or hemoglobin less than 8 Patient baseline hemoglobin was over 15 Status: Acute (2) Symptomatic anemia Narrative/Plan: Symptoms has resolved post transfusion see above Status: Acute (3) DVT prophylaxis Narrative/Plan: initially patient was not started on pharmacologic anticoagulation due to GI bleeding Patient continued with mechanical anticoagulation Initiate heparin subcu 3 times a day, as patient has no evidence of ongoing GI bleed. Patient is bedridden due to unsteady gait due to prolonged hospital course and debility Status: Acute (4) Diabetes 1.5, managed as type 2 Narrative/Plan: Controlled now continue with Levemir and insulin sliding scale Status: Acute (5) GI bleed Narrative/Plan: Secondary to diverticular disease Colonoscopy per GI, polypectomy performed , pathology results showed ascending colon adenoma, defer to follow up with GI for further recommendations , GI bleeding has resolved Status: Resolved (6) HTN (hypertension) Narrative/Plan: Blood pressure fluctuating currently controlled continue to monitor closely avoid hypotension Status: Acute (7) History of colon cancer Narrative/Plan: Patient reports that he has been cancer free for has surveillance with [facility] Patient is status post chemotherapy and partial resection of the colon colonic biopsy result showed adenoma, defer to OP follow up with GI for further recommendations Status: Resolved (8) Warfarin-induced coagulopathy Narrative/Plan: 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 Patient is currently cancer free per his report, and has only one event of DVT in the past I recommend to continue to hold pharmacologic anticoagulation postdischarge and to discuss further management with his PCP/oncology doc regarding anticoagulation risks and benefits Status: Acute Plan: Patient is fall risk with unsteady gait and debility PT for [facility] placement case management specialist to assist with discharge planning Chest x-ray done for placement Colonic polyp biopsy result showed adenomoa, defer to OP FU with GI for further recs New onset right knee swelling, x-rays reviewed showed osteoarthritic changes no acute fractures. Ortho consulted for arthrocentesis , r/o acute gout vs osteoarthritis Discharge planning placement to subacute rehab persistent hypokalemia, asymptomatic, replace PO and IV, monitor levels Mg unremarkable DC torsemide, and initiate lasix daily possible DC today if potassium level corrected , or tomorrow morning
[2017-04-20 17:14] LABS: Glucose,Whole Blood 154 mg/dL (75-99)
[2017-04-20] MEDS: HEPARIN SODIUM,PORCINE 5,000 UNIT/ML 1 ML VIAL SQ SCH (17:43)
[2017-04-20 20:21] LABS: Glucose,Whole Blood 259 mg/dL (75-99)
[2017-04-20] MEDS: DILTIAZEM CD 300 MG CAP.ER.24H PO SCH (22:40)
[2017-04-20] MEDS: NIACIN TR 500 MG CAPSULE.ER PO SCH (22:40)
[2017-04-21] MEDS: HEPARIN SODIUM,PORCINE 5,000 UNIT/ML 1 ML VIAL SQ SCH ×3 (00:01→15:08)
[2017-04-21] MEDS: HYDROcodone/APAP 5-325MG 1 EACH TAB PO PRN (03:00)
[2017-04-21 07:37] LABS: Glucose,Whole Blood 108 mg/dL (75-99)
[2017-04-21 07:53] LABS: Basophils % (A) 0 %; CH 31.5; Eosinophils # (A) 0.2 k/uL (0-0.7); Eosinophils % (A) 2 %; HCT 23.5 % (39.0-53.0); HDW 4.15; HGB 7.7 gm/dL (13.0-17.5); Hypochromasia Slight; Luc # (Auto) 0.14; Luc % (Auto) 2; Lymphocytes # (A) 1.7 k/uL (1.0-4.8); Lymphocytes % (A) 27 %; MCH 30.8 pg (25.0-35.0); MCHC 32.9 g/dL (31.0-37.0); MCV 93.5 fL (80.0-100.0); Mean Platelet Volume 7.3; Monocytes # (A) 0.5 k/uL (0-1.0); Monocytes % (A) 8 %; Neutrophils # (A) 3.9 k/uL (1.3-7.7); Neutrophils % (A) 61 %; Poikilocytosis Moderate; RBC 2.51 m/uL (4.30-5.90); RDW 15.3 % (11.5-15.5); WBC 6.4 k/uL (3.8-10.6); WBC (Perox) 7.05
[2017-04-21] MEDS: INSULIN DETEMIR 100 UNIT/ML 10 ML VIAL SQ SCH (08:02)
[2017-04-21] MEDS: PANTOPRAZOLE 40 MG TABLET PO SCH (08:02)
[2017-04-21] MEDS: LISINOPRIL 20 MG TAB PO SCH (08:02)
[2017-04-21] MEDS: POTASSIUM CHLORIDE ER 10 MEQ TAB.ER.PRT PO SCH (08:02)
[2017-04-21] MEDS: METOPROLOL SUCCINATE (ER) 25 MG TAB.ER.24H PO SCH (08:02)
[2017-04-21] MEDS: INSULIN LISPRO (humaLOG) 300 UNIT/3 ML VIAL SQ SCH ×2 (08:02→13:03)
[2017-04-21 08:25] LABS: Anion Gap 8 mmol/L; Blood Urea Nitrogen 11 mg/dL (9-20); Calcium 8.5 mg/dL (8.4-10.2); Carbon Dioxide 20 mmol/L (22-30); Chloride 112 mmol/L (98-107); Glucose 85 mg/dL (74-99); Non-African American GFR(MDRD) >60 (>60 ml/min/1.73 sqM); Sodium 140 mmol/L (137-145)
[2017-04-21] MEDS ORDERED: FUROSEMIDE 40 MG TAB PO SCH (09:00)
--- NOTE | 2017-04-21 09:06 | P.CNOR ---
History of Present Illness - [facility] Consult date: 04/21/17 Requesting physician: Berny Jaffe Consult reason: joint pain (Right knee) History of present illness: Patient is a pleasant 81-year-old male seen at bedside this morning. He states that he injured his right knee a few days ago while he has been an inpatient at the hospital. States he was transferred in bed and sat back on his right leg. He has had pain and swelling in the right knee since. He has been an inpatient for lower GI bleeding. He has been on chronic Coumadin use. The pain in the right knee is global. He has no radicular symptoms including numbness, tingling or weakness. He denies calf pain. Review of systems negative for fever, chills, chest pain, shortness of breath, nausea, vomiting, dizziness, headaches, slurred speech or other. Review of Systems All systems: negative Constitutional: Denies chills, Denies fever Eyes: denies blurred vision, denies pain Ears, nose, mouth and throat: Denies headache, Denies sore throat Cardiovascular: Denies chest pain, Denies shortness of breath Respiratory: Denies cough Gastrointestinal: Denies abdominal pain, Denies diarrhea, Denies nausea, Denies vomiting Musculoskeletal: Denies myalgias Integumentary: Denies pruritus, Denies rash Neurological: Denies numbness, Denies weakness Psychiatric: Denies anxiety, Denies depression Endocrine: Denies fatigue, Denies weight change Past Medical History Past Medical History: Cancer, Heart Failure, Diabetes Mellitus, Deep Vein Thrombosis (DVT), Hypertension Additional Past Medical History / Comment(s): COLON CA 03, LIVER CA 05, DVT RT LEG, kidney stones History of Any Multi-Drug Resistant Organisms: None Reported Past Surgical History: Bowel Resection, Hernia Repair, Pacemaker Additional Past Surgical History / Comment(s): LIVER WEDGE REMOVED Past Anesthesia/Blood Transfusion Reactions: No Reported Reaction Type of Cardiac Device: Permanent Pacemaker Device Placement Date:: 2013 Past Psychological History: No Psychological Hx Reported Smoking Status: Former smoker Past Alcohol Use History: Occasional Past Drug Use History: None Reported - Past Family History Sister(s) Family Medical History: Myocardial Infarction (NE) Father Family Medical History: Congestive Heart Failure (CHF) Additional Family Medical History / Comment(s): Father of ruptured AAA Mother Family Medical History: Coronary Artery Disease (CAD) Additional Family Medical History / Comment(s): cardiac problems Medications and Allergies Home Medications Medication Instructions Recorded Confirmed Type Aspirin 81 mg PO HS 02/15/14 04/13/17 History Diltiazem Cd [Cardizem CD] 300 mg PO HS 02/15/14 04/13/17 History Enalapril [Vasotec] 20 mg PO DAILY 02/15/14 04/13/17 History Glimepiride [Amaryl] 4 mg PO DAILY 02/15/14 04/13/17 History Insulin Detemir [Levemir] 25 unit INJ BID 02/15/14 04/13/17 History Metoprolol Succinate (ER) [Toprol 25 mg PO DAILY 02/15/14 04/13/17 History XL] Niacin [Niaspan] 500 mg PO HS 02/15/14 04/13/17 History Warfarin [Coumadin] 2 mg PO MOWEFR 02/15/14 04/13/17 History Warfarin [Coumadin] 5 mg PO MOWEFR 02/15/14 04/13/17 History Potassium Chloride ER [K-Dur 10] 10 meq PO DAILY 04/13/17 04/13/17 History Torsemide [Demadex] 20 mg PO DAILY 04/13/17 04/13/17 History Warfarin Sodium [Coumadin] 6 mg PO SUTUTHSA 04/13/17 04/13/17 History Allergies Allergy/AdvReac Type Severity Reaction Status Date / Time Penicillins Allergy Unknown Verified 04/13/17 09:35 Childhood Physical Examination Inspection of the right lower extremity shows moderate effusion at the right knee. There is no erythema, ecchymoses or deformity. The joint is not hot to touch. He has pain with forced extension and forced flexion to 110. The knee appears to be ligamentously stable. There is normal patellar tracking. Mild patellar crepitation. There is mild pain at medial and lateral joint lines. There is tenderness in the suprapatellar region where there is moderate effusion. Calf is soft and nontender. Neurovascular status intact with motor and sensation throughout the right lower extremity. There is 2+ dorsalis pedis pulse and less than 2 second capillary refill distally. Results X-rays of the right knee were reviewed and show there is advanced tricompartmental degenerative joint disease and osteoarthritis. There is no fractures or dislocation. There is significant vascular calcification. - Labs Labs: Abnormal Lab Results - Last 24 Hours (Table) 04/20/17 04/20/17 04/20/17 Range/Units 07:11 11:12 17:11 RBC 2.54 L (4.30-5.90) m/uL Hgb 8.1 L (13.0-17.5) gm/dL Hct 24.2 L (39.0-53.0) % POC Glucose (mg/dL) 181 H 154 H (75-99) mg/dL 04/20/17 04/21/17 04/21/17 Range/Units 20:19 06:57 07:28 RBC 2.51 L (4.30-5.90) m/uL Hgb 7.7 L (13.0-17.5) gm/dL Hct 23.5 L (39.0-53.0) % POC Glucose (mg/dL) 259 H 108 H (75-99) mg/dL H & H 04/13/17 04/13/17 04/13/17 Range/Units 08:32 15:05 20:54 Hgb 8.4 L 7.2 L 8.3 L (13.0-17.5) gm/dL Hct 24.2 L 21.3 L 24.6 L (39.0-53.0) % 04/14/17 04/14/17 04/14/17 Range/Units 02:35 14:47 20:54 Hgb 7.8 L 9.0 L 8.4 L (13.0-17.5) gm/dL Hct 23.6 L 27.3 L 25.2 L (39.0-53.0) % 04/15/17 04/15/17 04/15/17 Range/Units 03:31 09:13 15:00 Hgb 8.0 L 8.8 L 8.3 L (13.0-17.5) gm/dL Hct 23.8 L 26.5 L 24.9 L (39.0-53.0) % 04/15/17 04/16/17 04/17/17 Range/Units 22:49 05:04 06:29 Hgb 8.6 L 8.0 L 8.3 L (13.0-17.5) gm/dL Hct 25.6 L 23.5 L 24.1 L (39.0-53.0) % 04/19/17 04/20/17 04/21/17 Range/Units 07:30 07:11 06:57 Hgb 7.5 L 8.1 L 7.7 L (13.0-17.5) gm/dL Hct 22.9 L 24.2 L 23.5 L (39.0-53.0) % Coagulation 04/13/17 04/14/17 04/15/17 Range/Units 08:32 04:12 03:31 INR 2.2 H 1.6 H 1.2 H (<1.2) 04/16/17 Range/Units 05:04 INR 1.1 (<1.2) Result Diagrams: 04/21/17 06:57 04/20/17 16:02 - Diagnostic results Knee x-ray: report reviewed, image reviewed Assessment and Plan (1) Arthritis of knee, right Narrative/Plan: There is very low suspicion for septic joint. This is most likely an acute exacerbation of osteoarthritis/degenerative joint disease the right knee with possible injury to meniscus. He does have a moderate effusion. Would recommend initially compression with an Tariq bandage, ice and elevation. I will discuss further with Dr. Jaffe his recommendations for a joint aspiration as an inpatient versus an outpatient. Have also discussed with internal medicine utilizing short-term anti-inflammatory medicine. We'll follow and make further recommendations as appropriate. Status: Acute Time with Patient: Less than 30
[2017-04-21] MEDS ORDERED: POTASSIUM BICARB-CITRIC ACID 25 MEQ TABLET.EFF PO STA (09:10)
[2017-04-21 14:06] LABS: Glucose,Whole Blood 184 mg/dL (75-99)
[2017-04-21 15:19] VITALS: BP 158/70; RESP 16; TEMP 97.9
--- NOTE | 2017-04-21 15:36 | P.DS ---
Providers Date of admission: 04/13/17 11:12 Expected date of discharge: 04/21/17 Attending physician: Donna Clark DO Consults: 04/13/17 14:29 Consult Physician Routine Consulting Provider: Benjamin Macdonald Consult Reason/Comments: ICU management, GI bleed Do you want consulting provider notified?: Yes 04/19/17 16:45 Consult Physician Routine Consulting Provider: Anatoliy Brink Consult Reason/Comments: Swollen right knee Do you want consulting provider notified?: Yes Primary care physician: Jluis Guillen, DO - Discharge Diagnosis(es) (1) Acute blood loss anemia Current Visit: Yes Status: Acute (2) Symptomatic anemia Current Visit: Yes Status: Acute (3) DVT prophylaxis Current Visit: Yes Status: Acute (4) Diabetes 1.5, managed as type 2 Current Visit: Yes Status: Acute (5) GI bleed Current Visit: Yes Status: Resolved (6) HTN (hypertension) Current Visit: Yes Status: Acute (7) History of colon cancer Current Visit: No Status: Resolved (8) Warfarin-induced coagulopathy Current Visit: Yes Status: Acute Hospital Course: 81-year-old male with past medical history of colon cancer and metastases to the liver status post chemotherapy and partial resection of the colon. History of diabetes mellitus type 2, hypertension, and DVT of the right lower extremity. 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 Patient presented to the emergency department after sustaining frequent events of bloody bowel movements over 1 day described as bright red without abdominal pain. Patient became symptomatic and decided to come to the hospital. He does not recall any similar event in the past. Patient required blood transfusion in the hospital due to significant drop in his hemoglobin with symptomatic anemia. Patient was admitted to the ICU for further care and close monitoring, the later was transferred to stepdown unit after performing a colonoscopy which has revealed diverticular disease. Upon presentation his INR level was 2.2 however he reported fluctuating levels and that it was 3.38 earlier couple days before this was reversed with vitamin K. patient had a colonoscopy which confirmed the presence of diverticular disease without any active bleeding. Polyps were found biopsy was obtained results showed adenoma patient to follow-up with GI outpatient for further recommendations regarding further monitoring with colonoscopies. Hemoglobin was stabilized after the acute event of bleeding, patient had no further evidence of GI bleeds post colonoscopy. His hemoglobin was hovering around 7.5 8.5. Patient required a total of 5 units of packed RBC during this hospital stay. Patient Coumadin was discontinued as there was no medical indication to continue that. The patient confirmed that he had history of 1 DVT in his lower extremity 15 years ago and history of colon cancer with metastases to the liver status post chemotherapy he reports that he is in remission based on the surveillance that he is having. Otherwise patient is high risk for recurrent bleeding and there is no clear indication to resume pharmacologic anticoagulation at this point. During this hospital course patient potassium reported to be critically low. Patient received ongoing replacement of potassium 1 daily basis magnesium was stable. Patient torsemide was discontinued and he was switched to low-dose furosemide. Potassium was stable on day of discharge patient is to continue with oral potassium supplementation on daily basis. Along with close monitoring Right knee swelling most likely secondary to osteoarthritic changes which was confirmed with x-ray of the right knee, this was evaluated by orthopedics who recommended no immediate indication for arthrocentesis, Tariq wrapping was applied recommendations were to follow up outpatient with orthopedics in 1-2 weeks. Patient can achieve symptom control with Tylenol or occasional ibuprofen as needed. Patient was seen and examined on day of discharge she was doing well denies any complaint of chest pain, shortness of breath, headache, or dizziness. Patient still having generalized debility due to hospital course in acute GI bleed. Patient understands the recommendations to be sent to a subacute rehab to gain more strength and steady gait. Patient has history of diabetes mellitus and his blood sugar has been controlled with long-acting insulin and short-acting insulin which was reconciled on his discharge medications. Patient blood sugar was maintained under control Constitutional: vital signs stable, Not in acute distress, pleasant, conversant Lungs: Clear to auscultation bilaterally, clear to percussion, normal respiratory effort no use of accessory muscles Cardiovascular: Regular rate and rhythm, no murmurs, no gallops, no rubs, no peripheral edema Gastrointestinal: Soft, no tenderness to palpation, no palpable hepatosplenomegally, bowel sounds positive, no abdominal wall hernias Extremities: Right knee swelling no tenderness to palpation no warmth to the touch no erythema no bruising. No tenderness to palpation of the calf muscles bilaterally. Capillary refill is immediate over bilateral toes Psych: Alert, oriented to place, person and time More than 35 minutes were spent discharging this patient, and more than 50% of the time was spent in counseling the patient and family and in coordinating care. Procedures: Colonoscopy which revealed diverticular disease no active bleeding. Polypectomy was performed biopsy results showed adenomas. Patient to follow-up with GI Patient Condition at Discharge: Stable Plan - Discharge Summary New Discharge Prescriptions: New Acetaminophen Tab [Tylenol] 650 mg PO Q6HR PRN tab PRN Reason: Mild Pain Or Fever > 100.5 Furosemide [Lasix] 20 mg PO DAILY tab Heparin Sodium,Porcine [Heparin Sodium] 5,000 unit SQ Q8HR vial Pantoprazole [Protonix] 40 mg PO AC-BRKFST tab Potassium Chloride ER [K-Dur 20] 20 meq PO DAILY tab Continue Niacin [Niaspan] 500 mg PO HS Metoprolol Succinate (ER) [Toprol XL] 25 mg PO DAILY Enalapril [Vasotec] 20 mg PO DAILY Diltiazem Cd [Cardizem CD] 300 mg PO HS Aspirin 81 mg PO HS Insulin Detemir [Levemir] 25 unit INJ BID Discontinued Warfarin [Coumadin] 5 mg PO MOWEFR Warfarin [Coumadin] 2 mg PO MOWEFR Glimepiride [Amaryl] 4 mg PO DAILY Clindamycin HCl [Cleocin] 300 mg PO TID #10 cap Warfarin Sodium [Coumadin] 6 mg PO SUTUTHSA Torsemide [Demadex] 20 mg PO DAILY Potassium Chloride ER [K-Dur 10] 10 meq PO DAILY Discharge Medication List Aspirin 81 mg PO HS 02/15/14 [History] Diltiazem Cd [Cardizem CD] 300 mg PO HS 02/15/14 [History] Enalapril [Vasotec] 20 mg PO DAILY 02/15/14 [History] Insulin Detemir [Levemir] 25 unit INJ BID 02/15/14 [History] Metoprolol Succinate (ER) [Toprol XL] 25 mg PO DAILY 02/15/14 [History] Niacin [Niaspan] 500 mg PO HS 02/15/14 [History] Acetaminophen Tab [Tylenol] 650 mg PO Q6HR PRN tab 04/21/17 [Rx] Furosemide [Lasix] 20 mg PO DAILY tab 04/21/17 [Rx] Heparin Sodium,Porcine [Heparin Sodium] 5,000 unit SQ Q8HR vial 04/21/17 [Rx] Pantoprazole [Protonix] 40 mg PO AC-BRKFST tab 04/21/17 [Rx] Potassium Chloride ER [K-Dur 20] 20 meq PO DAILY tab 04/21/17 [Rx] Follow up Appointment(s)/Referral(s): Anatoliy Brink DO [Doctor of Osteopathic Medicine] - 1 Week Keturah Grover MD [STAFF PHYSICIAN] - 1 Week Jluis Guillen DO [Primary Care Provider] - 1-2 days Patient Instructions/Handouts: Diverticulosis (GEN), Osteoarthritis (GEN), Colorectal Polyps (GEN), Diverticulosis Diet (GEN) Activity/Diet/Wound Care/Special Instructions: activity as tolerated, fall risk follow up with GI for further recommendations regarding adenomatous polyp follow up with your PCP on hemoglobin discuss with your PCP further recommendations regarding coumadin, currently on hold, no clear indications to resume coumadin, patient has recently had massive GI bleed requiring total of 5 units PRBC Close monitoring of potassium at the long-term replace as needed Discharge Disposition: TRANSFER TO SNF/ECF
[2017-04-21 16:23] VITALS: PULSE 62
[2017-04-22] MEDS ORDERED: POTASSIUM CHLORIDE ER 20 MEQ TAB.ER PO SCH (09:00)
== END 2017-04-21 16:45 | DRG 378 ==
LOC: EC 08:12 → 6ICU 11:12 → 5MS5E 04-16 23:07
PROVIDERS: ADMIT Internal Medicine; ATTEND Internal Medicine
PROC: 30233N1 Transfusion of Nonautologous Red Blood Cells into Peripheral Vein, Percutaneous Approach (ICD-10-PCS; 2017-04-13)
PROC: 0DBK8ZX Excision of Ascending Colon, Via Natural or Artificial Opening Endoscopic, Diagnostic (ICD-10-PCS; principal; 2017-04-16 15:00)
DX: K57.91 Diverticulosis of intestine, part unspecified, without perforation or abscess with bleeding (principal); D62 Acute posthemorrhagic anemia; I11.0 Hypertensive heart disease with heart failure; I49.5 Sick sinus syndrome; I50.9 Heart failure, unspecified; E11.9 Type 2 diabetes mellitus without complications; E66.9 Obesity, unspecified; E78.5 Hyperlipidemia, unspecified; M17.11 Unilateral primary osteoarthritis, right knee; T45.515A Adverse effect of anticoagulants, initial encounter; R55 Syncope and collapse; E87.6 Hypokalemia; R79.1 Abnormal coagulation profile; R32 Unspecified urinary incontinence; D12.2 Benign neoplasm of ascending colon; Z74.01 Bed confinement status; Z79.01 Long term (current) use of anticoagulants; Z79.82 Long term (current) use of aspirin; Z79.899 Other long term (current) drug therapy; Z88.0 Allergy status to penicillin; Z95.0 Presence of cardiac pacemaker; Z87.891 Personal history of nicotine dependence; Z86.718 Personal history of other venous thrombosis and embolism; Z85.05 Personal history of malignant neoplasm of liver; Z85.038 Personal history of other malignant neoplasm of large intestine; Z82.49 Family history of ischemic heart disease and other diseases of the circulatory system
CPT/HCPCS: 36415; 45380; 71020; 80048; 80053; 81001; 82550; 82553; 83036; 83735; 84100; 84132; 84484; 85025; 85027; 85610; 85730; 86850; 86900; 86901; 86920; 88305; 96361; 96374; 99285

== ENCOUNTER → 2018-03-14 | Outpatient (CLI) | payer MEDICARE ==
--- NOTE | 2018-03-14 12:30 | XR ---
EXAMINATION TYPE: XR chest 2V DATE OF EXAM: 03/14/2018 COMPARISON: 12/30/2015, 04/19/2017 TECHNIQUE: PA and lateral views submitted. HISTORY: COPD and history of: carcinoma FINDINGS: The lungs are clear and there is no pneumothorax, pleural effusion, or focal pneumonia. Atheroscler otic change aorta. Cardiac device seen. Chronic rib deformities are noted. Mild hyperinflation. Hyper trophic and degenerative change of the spine. Failure. IMPRESSION: 1. No acute process.
[2018-03-14 13:32] LABS: Basophils % (A) 0 %; Eosinophils # (A) 0.2 k/uL (0-0.7); Eosinophils % (A) 3 %; HCT 41.1 % (39.0-53.0); HGB 13.8 gm/dL (13.0-17.5); Lymphocytes # (A) 2.4 k/uL (1.0-4.8); Lymphocytes % (A) 34 %; MCH 29.6 pg (25.0-35.0); MCHC 33.7 g/dL (31.0-37.0); Mean Platelet Volume 6.6; Monocytes # (A) 0.5 k/uL (0-1.0); Monocytes % (A) 6 %; Neutrophils # (A) 3.9 k/uL (1.3-7.7); Neutrophils % (A) 54 %; Platelet Count 280 k/uL (150-450); RBC 4.67 m/uL (4.30-5.90); RDW 13.4 % (11.5-15.5); WBC 7.1 k/uL (3.8-10.6)
[2018-03-14 13:57] LABS: ALT 21 U/L (21-72); AST 15 U/L (17-59); Alkaline Phosphatase 96 U/L (38-126); Anion Gap 8 mmol/L; Blood Urea Nitrogen 15 mg/dL (9-20); Calcium 9.6 mg/dL (8.4-10.2); Carbon Dioxide 21 mmol/L (22-30); Chloride 107 mmol/L (98-107); Glucose 141 mg/dL (74-99); Potassium 4.4 mmol/L (3.5-5.1); Sodium 136 mmol/L (137-145); Total Bilirubin 1.1 mg/dL (0.2-1.3)
--- NOTE | 2018-03-14 15:08 | CT ---
EXAMINATION TYPE: CT abdomen pelvis wo con DATE OF EXAM: 03/14/2018 COMPARISON: 12/30/2015 INDICATION: Cancer Sigmoid Colon DLP: 1463.90 mGycm, Automated exposure control for dose reduction was used. CONTRAST: 0 mL of Isovue 300. Study performed with Oral Contrast TECHNIQUE: Axial images were obtained from above the diaphragm to the pubic rami in the axial plane a t 5 mm thick sections. Reconstructed images are reviewed on the computer in the coronal plane. FINDINGS: Limited CT sections are obtained the lung bases. The lung bases are clear. Coronary artery calcific ations present. CT ABDOMEN: There is an anterior abdominal wall hernia in the periumbilical region containing mesente wally fat. No loops of bowel are within this hernia. Liver: Normal Spleen: Normal Pancreas: Normal Adrenal glands: The adrenal glands are normal. Gallbladder: Surgically absent Kidneys: No masses are evident. No hydronephrosis is present. No cysts are present. At the superio r pole right kidney is a 0.4 cm calcification without obstruction. In the superior pole left kidney t here are 0.6 and 0.4 cm nonobstructing renal stones. Aorta: Vascular calcification is within the aorta. Inferior vena cava: Normal. CT PELVIS: Loops of bowel within the abdomen and pelvis are normal. There are loops of bowel which are incom pletely distended or lack oral contrast limiting their evaluation. No suspicious masses are areas for recurrence within the sigmoid region are evident. Appendix: Not visualized Urinary bladder: Normal. Genitourinary structures: Prostate is very prominent. Osseous structures: No suspicious lytic or sclerotic lesions. Facet degenerative changes are present. IMPRESSIONS: 1. 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
== END | disposition home or self-care (01) ==
LOC: RADCTMAIN 11:20
PROVIDERS: ATTEND Internal Medicine Hematology & Oncology
DX: C18.7 Malignant neoplasm of sigmoid colon (principal); Z91.041 Radiographic dye allergy status; Z88.0 Allergy status to penicillin
CPT/HCPCS: 71046; 74176; 80053; 82378; 85025

== ENCOUNTER 2018-05-11 15:26 | Emergency (ER) | payer MEDICARE ==
[2018-05-11 15:48] VITALS: TEMP 97.5
--- NOTE | 2018-05-11 16:11 | ED ---
General Adult HPI - General Chief complaint: Fall Stated complaint: fall, facial injury Time Seen by Provider: 05/11/18 15:30 Source: patient, RN notes reviewed Mode of arrival: wheelchair Limitations: no limitations - History of Present Illness Initial comments: This is a 82-year-old male who presents emergency Department complaining of some facial trauma. Patient states this morning at 6:30 in the dark is taking a garbage and tripped over step and hit his face on the concrete. Patient states he did not lose consciousness he states that he was not dazed he does not complain of a headache. Patient states he has had no neck pain no numbness or weakness. Patient went to an urgent care facility where they diagnosed with a fractured nasal bone but because of the extensive ecchymosis around the infraorbital region on the left and a little bit on the right they wanted him to be evaluated emergency department. Patient does not complain of any orbital tenderness at this time but there is significant ecchymosis. Patient states he has an abrasion on his left wrist but he is not concerned about his full range of motion of his wrist and hand. Patient has a little abrasion on his left knee and a little contusion to the medial aspect of the left knee and he has no tenderness and full range of motion of the knee. Patient has no hip pain patient has no chest pain or abdominal pain patient has no back pain. Patient is on eliquis - Related Data Home Medications Medication Instructions Recorded Confirmed Aspirin 81 mg PO DAILY 02/15/14 05/11/18 Diltiazem Cd [Cardizem CD] 300 mg PO DAILY 02/15/14 05/11/18 Insulin Detemir [Levemir] 42 unit SQ BID 02/15/14 05/11/18 Albuterol Sulfate [Proair Hfa] 1 - 2 puff INHALATION RT-QID PRN 05/11/18 Apixaban [Eliquis] 2.5 mg PO BID 05/11/18 05/11/18 Budesonide/Formoterol Fumarate 2 puff INHALATION RT-BID 05/11/18 05/11/18 [Symbicort 80-4.5 Mcg Inhaler] Lisinopril 40 mg PO DAILY 05/11/18 05/11/18 Metoprolol Succinate (ER) [Toprol 50 mg PO DAILY 05/11/18 05/11/18 Xl] Niacin [Niaspan] 500 mg PO DAILY 05/11/18 05/11/18 Potassium Chloride ER [K-Dur 20] 20 meq PO BID 05/11/18 05/11/18 Tiotropium 18 Mcg/Puff [Spiriva] 1 cap INHALATION RT-DAILY 05/11/18 05/11/18 Previous Rx's Medication Instructions Recorded Furosemide [Lasix] 20 mg PO DAILY tab 04/21/17 Cephalexin [Keflex] 500 mg PO Q6HR #28 cap 05/11/18 Allergies Allergy/AdvReac Type Severity Reaction Status Date / Time Iodinated Contrast- Oral and Allergy Itching Verified 05/11/18 16:12 IV Dye Penicillins Allergy Unknown Verified 05/11/18 16:12 Childhood Review of Systems ROS Statement: Those systems with pertinent positive or pertinent negative responses have been documented in the HPI. ROS Other: All systems not noted in ROS Statement are negative. Past Medical History Past Medical History: Cancer, Heart Failure, Diabetes Mellitus, Deep Vein Thrombosis (DVT), Hypertension Additional Past Medical History / Comment(s): COLON CA 03, LIVER CA 05, DVT RT LEG, kidney stones History of Any Multi-Drug Resistant Organisms: None Reported Past Surgical History: Bowel Resection, Hernia Repair, Pacemaker Additional Past Surgical History / Comment(s): LIVER WEDGE REMOVED Past Anesthesia/Blood Transfusion Reactions: No Reported Reaction Type of Cardiac Device: Permanent Pacemaker Device Placement Date:: 2013 Past Psychological History: No Psychological Hx Reported Smoking Status: Former smoker Past Alcohol Use History: Occasional Past Drug Use History: None Reported - Past Family History Sister(s) Family Medical History: Myocardial Infarction ([place]) Father Family Medical History: Congestive Heart Failure (CHF) Additional Family Medical History / Comment(s): Father of ruptured AAA Mother Family Medical History: Coronary Artery Disease (CAD) Additional Family Medical History / Comment(s): cardiac problems General Exam - General Exam Comments Initial Comments: GENERAL: Patient is well-developed and well-nourished. Patient is nontoxic and well- hydrated and is in mild distress. ENT: Neck is soft and supple. No significant lymphadenopathy is noted. Oropharynx is clear. Moist mucous membranes. Neck has full range of motion without eliciting any pain. Patient has abrasions on the anterior aspect of his nose area is swollen and tender to touch. Patient has ecchymosis on the inferolateral orbital region of his left eye and slight ecchymosis underneath the right eye. EYES: The sclera were anicteric and conjunctiva were pink and moist. Extraocular movements were intact and pupils were equal round and reactive to light. Eyelids were unremarkable. PULMONARY: Unlabored respirations. Good breath sounds bilaterally. No audible rales rhonchi or wheezing was noted. CARDIOVASCULAR: There is a regular rate and rhythm without any murmurs gallops or rubs. ABDOMEN: Soft and nontender with normal bowel sounds. No palpable organomegaly was noted. There is no palpable pulsatile mass. SKIN: Patient has abrasions to his left wrist left knee and nose. NEUROLOGIC: Patient is alert and oriented x3. Cranial nerves II through XII are grossly intact. Motor and sensory are also intact. Normal speech, volume and content. Symmetrical smile. MUSCULOSKELETAL: Normal extremities with adequate strength and full range of motion. No lower extremity swelling or edema. No calf tenderness. LYMPHATICS: No significant lymphadenopathy is noted PSYCHIATRIC: Normal psychiatric evaluation. Limitations: no limitations Course Vital Signs 05/11/18 15:44 Temperature 97.5 F L Pulse Rate 66 Respiratory 20 Rate Blood Pressure 151/73 O2 Sat by Pulse 98 Oximetry Medical Decision Making - Medical Decision Making CT of the brain and C-spine were negative for any acute abnormalities. CT of the facial bones shows a nasal bone fracture. - Lab Data Result diagrams: 05/11/18 16:18 05/11/18 16:18 Lab Results 05/11/18 05/11/18 05/11/18 Range/Units 16:18 16:18 16:18 WBC 9.5 (3.8-10.6) k/uL RBC 4.58 (4.30-5.90) m/uL Hgb 13.8 (13.0-17.5) gm/dL Hct 41.3 (39.0-53.0) % MCV 90.0 (80.0-100.0) fL MCH 30.1 (25.0-35.0) pg MCHC 33.5 (31.0-37.0) g/dL RDW 13.5 (11.5-15.5) % Plt Count 266 (150-450) k/uL Neutrophils % 66 % Lymphocytes % 25 % Monocytes % 6 % Eosinophils % 1 % Basophils % 0 % Neutrophils # 6.3 (1.3-7.7) k/uL Lymphocytes # 2.4 (1.0-4.8) k/uL Monocytes # 0.6 (0-1.0) k/uL Eosinophils # 0.1 (0-0.7) k/uL Basophils # 0.0 (0-0.2) k/uL PT 10.1 (9.0-12.0) sec INR 1.0 (<1.2) APTT 22.7 (22.0-30.0) sec Sodium 139 (137-145) mmol/L Potassium 4.6 (3.5-5.1) mmol/L Chloride 105 (98-107) mmol/L Carbon Dioxide 23 (22-30) mmol/L Anion Gap 11 mmol/L BUN 15 (9-20) mg/dL Creatinine 0.82 (0.66-1.25) mg/dL Est GFR (CKD-EPI)AfAm >90 (>60 ml/min/1.73 sqM) Est GFR (CKD-EPI)NonAf 82 (>60 ml/min/1.73 sqM) Glucose 245 H (74-99) mg/dL Calcium 9.8 (8.4-10.2) mg/dL Total Bilirubin 1.3 (0.2-1.3) mg/dL AST 21 (17-59) U/L ALT 18 L (21-72) U/L Alkaline Phosphatase 89 (38-126) U/L Total Protein 6.9 (6.3-8.2) g/dL Albumin 3.9 (3.5-5.0) g/dL Disposition Clinical Impression: Fall, Nasal bones, open fracture Disposition: HOME SELF-CARE Condition: Good Instructions: Nasal Fracture (ED), Fall Prevention for Older Adults (ED) Prescriptions: Cephalexin [Keflex] 500 mg PO Q6HR #28 cap Is patient prescribed a controlled substance at d/c from ED?: No Referrals: Jluis Guillen DO [Primary Care Provider] - 1-2 days Anand Vasquez MD [STAFF PHYSICIAN] - 1-2 days Time of Disposition: 18:34
[2018-05-11 16:31] LABS: Basophils % (A) 0 %; Eosinophils # (A) 0.1 k/uL (0-0.7); Eosinophils % (A) 1 %; HCT 41.3 % (39.0-53.0); HGB 13.8 gm/dL (13.0-17.5); Lymphocytes # (A) 2.4 k/uL (1.0-4.8); Lymphocytes % (A) 25 %; MCH 30.1 pg (25.0-35.0); MCHC 33.5 g/dL (31.0-37.0); Mean Platelet Volume 6.1; Monocytes # (A) 0.6 k/uL (0-1.0); Monocytes % (A) 6 %; Neutrophils # (A) 6.3 k/uL (1.3-7.7); Neutrophils % (A) 66 %; Platelet Count 266 k/uL (150-450); RBC 4.58 m/uL (4.30-5.90); RDW 13.5 % (11.5-15.5); WBC 9.5 k/uL (3.8-10.6)
[2018-05-11 16:41] LABS: Partial Thromboplastin Time 22.7 sec (22.0-30.0); Prothrombin Time 10.1 sec (9.0-12.0)
[2018-05-11 16:42] LABS: ALT 18 U/L (21-72); AST 21 U/L (17-59); Albumin 3.9 g/dL (3.5-5.0); Alkaline Phosphatase 89 U/L (38-126); Anion Gap 11 mmol/L; Blood Urea Nitrogen 15 mg/dL (9-20); Calcium 9.8 mg/dL (8.4-10.2); Carbon Dioxide 23 mmol/L (22-30); Chloride 105 mmol/L (98-107); Glucose 245 mg/dL (74-99); Potassium 4.6 mmol/L (3.5-5.1); Sodium 139 mmol/L (137-145); Total Bilirubin 1.3 mg/dL (0.2-1.3); Total Protein 6.9 g/dL (6.3-8.2)
--- NOTE | 2018-05-11 18:08 | CT ---
EXAMINATION TYPE: CT brain donte cody DATE OF EXAM: 05/11/2018 COMPARISON: None HISTORY: LACERATION TO NASAL AREA AFTER FALL INJURY CT DLP: 1712.94 mGycm Automated exposure control for dose reduction was used. TECHNIQUE: CT scan of the head and cervical spine are performed without contrast. FINDINGS: There is cerebral cortical atrophy. There is no mass effect nor midline shift. There is n o sign of intracranial hemorrhage. The calvarium is intact. There is mucosal thickening in the left m axillary sinus. There is also mucosal thickening right frontal sinus. There are small areas of hypode nsity in the anterior internal capsule bilaterally. There is a 4 mm anterior subluxation of C4 in relation to C5. There is moderate narrowing of C5-6 and C6-7 disc spaces. There is mild straightening of the cervical spine. There is multilevel hypertrophi c cervical facet arthropathy. The skull base is intact. IMPRESSION: Spondylotic changes in the cervical spine. Degenerative subluxation at C4-5. No fracture. Cerebral atrophy and mild chronic small vessel ischemia. No acute intracranial abnormality.
--- NOTE | 2018-05-11 18:13 | CT ---
EXAMINATION TYPE: CT facial bones wo con DATE OF EXAM: 05/11/2018 COMPARISON: None HISTORY: LACERATION TO NASAL AREA AFTER FALL INJURY CT DLP: 695.45 mGycm Automated exposure control for dose reduction was used. TECHNIQUE: CT scan of the sinuses is performed without contrast, axial images are obtained, coronal r eformatted images are also reviewed. FINDINGS: There is opacification of the left maxillary sinus with some expansion into the ethmoid sin us. I see no focal bone destruction. There is 1 cm mucous retention cyst in the right maxillary sinus . There is 1 cm mucous retention cyst right frontal sinus. There is no evidence of a blowout fracture. Orbital margins are intact. The zygomatic arches are inta ct. There is nasal bone fracture bilaterally with some displacement slightly to the right side. There is metal artifact from the dental work. The mandibular ring appears intact. Temporomandibular joints are intact. The maxilla is intact. There is some osteosclerosis of the lateral wall left maxillary s inus. IMPRESSION: Nasal bone fracture. Osteosclerosis and bone thickening involving the anterior and lateral wall left maxillary sinus with opacification. This could relate to a mucocele. There is also frontal and right maxillary sinusitis. Mild left side soft tissue swelling.
[2018-05-11 18:48] VITALS: BP 157/69; PULSE 62; RESP 18
== END 2018-05-11 19:01 | disposition home or self-care (01) ==
LOC: EC 15:26
DX: S02.2XXB Fracture of nasal bones, initial encounter for open fracture (principal); S05.12XA Contusion of eyeball and orbital tissues, left eye, initial encounter; S00.83XA Contusion of other part of head, initial encounter; S60.812A Abrasion of left wrist, initial encounter; S80.212A Abrasion, left knee, initial encounter; I11.0 Hypertensive heart disease with heart failure; I50.9 Heart failure, unspecified; E11.9 Type 2 diabetes mellitus without complications; Z87.891 Personal history of nicotine dependence; Z86.718 Personal history of other venous thrombosis and embolism; Z85.038 Personal history of other malignant neoplasm of large intestine; Z85.05 Personal history of malignant neoplasm of liver; Z95.0 Presence of cardiac pacemaker; Z98.890 Other specified postprocedural states; Z79.01 Long term (current) use of anticoagulants; Z79.4 Long term (current) use of insulin; Z79.51 Long term (current) use of inhaled steroids; Z79.82 Long term (current) use of aspirin; Z79.899 Other long term (current) drug therapy; W01.198A Fall on same level from slipping, tripping and stumbling with subsequent striking against other object, initial encounter; Y92.89 Other specified places as the place of occurrence of the external cause; Y93.89 Activity, other specified
CPT/HCPCS: 36415; 70450; 70486; 72125; 80053; 85025; 85610; 85730; 99284

== ENCOUNTER → 2019-04-06 | Outpatient (CLI) | payer MEDICARE ==
[2019-04-06 09:37] LABS: Basophils % (A) 0 %; Eosinophils # (A) 0.3 k/uL (0-0.7); Eosinophils % (A) 4 %; HCT 41.9 % (39.0-53.0); HGB 14.1 gm/dL (13.0-17.5); Lymphocytes % (A) 27 %; MCH 31.1 pg (25.0-35.0); MCHC 33.7 g/dL (31.0-37.0); MCV 92.3 fL (80.0-100.0); Mean Platelet Volume 6.7; Monocytes # (A) 0.4 k/uL (0-1.0); Monocytes % (A) 6 %; Neutrophils # (A) 4.7 k/uL (1.3-7.7); Neutrophils % (A) 62 %; Platelet Count 278 k/uL (150-450); RBC 4.54 m/uL (4.30-5.90); RDW 13.2 % (11.5-15.5); WBC 7.5 k/uL (3.8-10.6)
--- NOTE | 2019-04-06 09:37 | XR ---
EXAMINATION TYPE: XR chest 2V DATE OF EXAM: 04/06/2019 COMPARISON: 03/14/2018 TECHNIQUE: PA and lateral views submitted. HISTORY: Colon cancer follow-up FINDINGS: The lungs are clear and there is no pneumothorax, pleural effusion, or focal pneumonia. Cardiac dev ice noted. Hypertrophic and degenerative change of the spine. No overt failure. Atherosclerotic zepeda e aorta. IMPRESSION: 1. No acute process.
[2019-04-06 10:07] LABS: ALT 10 U/L (21-72); AST 14 U/L (17-59); African American GFR (CKD) >90 (>60 ml/min/1.73 sqM); Albumin 3.9 g/dL (3.5-5.0); Alkaline Phosphatase 95 U/L (38-126); Anion Gap 15 mmol/L; Blood Urea Nitrogen 21 mg/dL (9-20); Calcium 9.8 mg/dL (8.4-10.2); Carbon Dioxide 19 mmol/L (22-30); Chloride 104 mmol/L (98-107); Glucose 291 mg/dL (74-99); Potassium 4.7 mmol/L (3.5-5.1); Sodium 138 mmol/L (137-145); Total Bilirubin 1.3 mg/dL (0.2-1.3)
== END | disposition home or self-care (01) ==
LOC: RADXRMAIN 08:43
PROVIDERS: ATTEND Internal Medicine Hematology & Oncology
DX: C18.7 Malignant neoplasm of sigmoid colon (principal); C18.9 Malignant neoplasm of colon, unspecified; Z88.0 Allergy status to penicillin; Z91.041 Radiographic dye allergy status
CPT/HCPCS: 71046; 80053; 82378; 85025

== ENCOUNTER 2020-08-15 06:31 | Inpatient (IN) | payer MEDICARE ==
--- NOTE | 2020-08-15 06:48 | ED ---
Weakness HPI - General Chief complaint: Weakness Stated complaint: Back pain Time Seen by Provider: 08/15/20 06:39 Source: EMS Mode of arrival: EMS Limitations: no limitations - History of Present Illness Initial comments: 85yo male presenting for generalized weakness, fall with low back pain. pt states that 2 night ago he fell while trying to get something from the garage--he states he slept on the garage floor that night-was able to use a stick to pull blankets from a shelf. he states he used the same stick to push the garage door furring installer when he heard people outside and he was found the next morning he states roughly 10 hours later. he states he felt weak prior to falling and could not lift his weight. pt states he felt like he fell in slow motion, he denies head injury, neck injury, abdominal or chest trauma. denies extremity pain. he states the next day he has a sore low back. pt states that EMS helped him into a chair--he states later that night he couldnt get out of the chair so he called his EMS nephew who came and moved him into bed. he states he was able to walk and weight bear with ophthalmology assistant. today he states he could not get up to use the restroom he felt weak all over and had low back pain. denies unilateral leg weakness, loss of sensation of the LE. Patient states because he couldnt stand to go to the bathroom he soiled the bed. he states he could control it but he wasnt able to get up-so he called EMS to bring him to the ER. Pt denies chest pain, SOB, nausea, vomiting, visual changes, inability to control bladder/bowels. Patient BP on EMS arrival lower aspect of normal other gar VS stable. pt has not additional complaints and appears in good spirits on arrival-no distress. - Related Data Home Medications Medication Instructions Recorded Confirmed Aspirin 81 mg PO DAILY 02/15/14 08/15/20 Diltiazem Cd [Cardizem CD] 300 mg PO DAILY 02/15/14 08/15/20 Insulin Detemir (Levemir) [Levemir] 45 unit SQ BID 02/15/14 08/15/20 Apixaban [Eliquis] 2.5 mg PO BID 05/11/18 08/15/20 Budesonide/Formoterol Fumarate 2 puff INHALATION RT-BID 05/11/18 08/15/20 [Symbicort 80-4.5 Mcg Inhaler] Metoprolol Succinate (ER) [Toprol 50 mg PO DAILY 05/11/18 08/15/20 Xl] Niacin [Niaspan] 500 mg PO DAILY 05/11/18 08/15/20 Potassium Chloride ER [K-Dur 20] 20 meq PO BID 05/11/18 08/15/20 Tiotropium 18 Mcg/Puff [Spiriva] 1 cap INHALATION RT-DAILY 05/11/18 08/15/20 lisinopriL 40 mg PO DAILY 05/11/18 08/15/20 Acetaminophen/Diphenhydramine 1 tab PO HS PRN 08/15/20 08/15/20 [Tylenol Pm Ex-Strength Caplet] Allergies Allergy/AdvReac Type Severity Reaction Status Date / Time Iodinated Contrast Media Allergy Itching Verified 08/15/20 10:53 [Iodinated Contrast- Oral and IV Dye] Penicillins Allergy Unknown Verified 08/15/20 10:53 Childhood Review of Systems ROS Statement: Those systems with pertinent positive or pertinent negative responses have been documented in the HPI. ROS Other: All systems not noted in ROS Statement are negative. Past Medical History Past Medical History: Cancer, Heart Failure, Diabetes Mellitus, Deep Vein Thrombosis (DVT), Hypertension Additional Past Medical History / Comment(s): COLON CA 03, LIVER CA 05, DVT RT LEG, kidney stones, pacer History of Any Multi-Drug Resistant Organisms: None Reported Past Surgical History: Bowel Resection, Hernia Repair, Pacemaker Additional Past Surgical History / Comment(s): LIVER WEDGE REMOVED Past Anesthesia/Blood Transfusion Reactions: No Reported Reaction Type of Cardiac Device: Permanent Pacemaker Device Placement Date:: 2013 Past Psychological History: No Psychological Hx Reported Smoking Status: Never smoker Past Alcohol Use History: Occasional Past Drug Use History: None Reported - Past Family History Sister(s) Family Medical History: Myocardial Infarction ([place]) Father Family Medical History: Congestive Heart Failure (CHF) Additional Family Medical History / Comment(s): Father of ruptured AAA Mother Family Medical History: Coronary Artery Disease (CAD) Additional Family Medical History / Comment(s): cardiac problems General Exam - General Exam Comments Initial Comments: General: The patient is awake and alert, in no distress, and does not appear acutely ill. Eye: +3 mm pupils are equal, round and reactive to light, extra-ocular movements are intact. No nystagmus. There is normal conjunctiva bilaterally. No signs of icterus. Ears, nose, mouth and throat: There are moist mucous membranes and no oral lesions. No midline neck pain. Full ROM Neck: The neck is supple, there is no tenderness or JVD. Cardiovascular: There is a regular rate and rhythm. No murmur, rub or gallop is appreciated. Respiratory: Lungs are clear to auscultation, respirations are non-labored, breath sounds are equal. No wheezes, stridor, rales, or rhonchi. Gastrointestinal: Large ventral hernia, soft, nontender. non-distended, non- tender abdomen without masses or organomegaly noted. There is no rebound or guarding present. : normal rectal tone, normal sensation of the perineum Musculoskeletal: Normal ROM, no tenderness. Strength 5/5 of the LE b/l. Sensation intact of the LE b/l including the saddle region. Radial and DP pulses equal bilaterally 2+. Neurological: A&O x 3. CN II-XII intact, There are no obvious motor or sensory deficits. Coordination appears grossly intact. Speech is normal. Skin: Skin is warm and dry and no rashes or lesions are noted. Psychiatric: Cooperative, appropriate mood & affect, normal judgment. Limitations: no limitations Course Vital Signs 08/15/20 08/15/20 08/15/20 06:35 08:44 10:31 Temperature 98 F 97.6 F Pulse Rate 67 70 60 Respiratory 18 18 20 Rate Blood Pressure 131/66 160/71 153/76 O2 Sat by Pulse 96 95 95 Oximetry - Reevaluation(s) Reevaluation #1: pt care delayed secondary to PACS system being down, STAT rad did not receive CT lumbar spine until 9:15 08/15/20 Reevaluation #2: Dr. Xiao called with CXR results stating there was cardiomegaly and atelectasis at lung bases. 08/15/20 09:48 Reevaluation #3: CT lumbar spine no fracture or subluxation multilevel lumbar degenerative disc disease and facet arthropathy. 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 08/15/20 10:39 EKG Findings - EKG Comments: EKG Findings:: Ventricular rate 62 bpm, RI interval 112 ms, QRS ratio 148 ms, QT/QTC 460/466 ms. This is electronic atrial paced with a right bundle-branch block as well as a noted left anterior fascicular block. There is no ST elevation or depression that is appreciated Medical Decision Making - Medical Decision Making labs stable. pt states he fell because he has been feeling weak all over. pt appear dehydrated. patient complaining of low back pain. no bruising. normal rectal tone. normal sensation of the perineum. Patient has no saddle anesthesia he has strength preserved bilaterally the lower extremities. pt unable to weight bear and ambulate. reflexes patellar and achilles +2/5 b/l Patient will be admitted as he lives alone and cannot care for himself ambulate secondary to generalized weakness. Discussed case in detail/length with attending Dr Nuno who is agreeable to admission at this facility under [facility]-. - Lab Data Result diagrams: 08/15/20 07:05 08/15/20 07:44 Lab Results 08/15/20 08/15/20 08/15/20 Range/Units 07:05 07:32 07:44 WBC 10.1 (3.8-10.6) k/uL RBC 4.62 (4.30-5.90) m/uL Hgb 14.8 (13.0-17.5) gm/dL Hct 41.3 (39.0-53.0) % MCV 89.3 (80.0-100.0) fL MCH 32.0 (25.0-35.0) pg MCHC 35.9 (31.0-37.0) g/dL RDW 13.1 (11.5-15.5) % Plt Count 247 (150-450) k/uL MPV 7.3 Neutrophils % 69 % Lymphocytes % 20 % Monocytes % 8 % Eosinophils % 2 % Basophils % 1 % Neutrophils # 7.0 (1.3-7.7) k/uL Lymphocytes # 2.0 (1.0-4.8) k/uL Monocytes # 0.8 (0-1.0) k/uL Eosinophils # 0.2 (0-0.7) k/uL Basophils # 0.1 (0-0.2) k/uL PT 10.0 (9.0-12.0) sec INR 1.0 (<1.2) APTT 26.8 (22.0-30.0) sec Sodium (137-145) mmol/L Potassium (3.5-5.1) mmol/L Chloride (98-107) mmol/L Carbon Dioxide (22-30) mmol/L Anion Gap mmol/L BUN (9-20) mg/dL Creatinine (0.66-1.25) mg/dL Est GFR (CKD-EPI)AfAm (>60 ml/min/1.73 sqM) Est GFR (CKD-EPI)NonAf (>60 ml/min/1.73 sqM) Glucose (74-99) mg/dL Plasma Lactic Acid Jimy (0.7-2.0) mmol/L Calcium (8.4-10.2) mg/dL Magnesium (1.6-2.3) mg/dL Total Bilirubin (0.2-1.3) mg/dL AST (17-59) U/L ALT (4-49) U/L Alkaline Phosphatase (38-126) U/L Creatine Kinase (55-170) U/L Troponin I (0.000-0.034) ng/mL Total Protein (6.3-8.2) g/dL Albumin (3.5-5.0) g/dL TSH (0.465-4.680) mIU/L Urine Color Urine Appearance (Clear) Urine pH (5.0-8.0) Ur Specific [place] (1.001-1.035) Urine Protein (Negative) Urine Glucose (UA) (Negative) Urine Ketones (Negative) Urine Blood (Negative) Urine Nitrite (Negative) Urine Bilirubin (Negative) Urine Urobilinogen (<2.0) mg/dL Ur Leukocyte Esterase (Negative) Urine RBC (0-5) /hpf Urine WBC (0-5) /hpf Ur Squamous Epith Cells (0-4) /hpf Amorphous Sediment (None) /hpf Urine Bacteria (None) /hpf Cellular Casts (0) /lpf Hyaline Casts (0-2) /lpf Urine Mucus (None) /hpf Coronavirus (PCR) Not Detected (Not Detectd) 08/15/20 08/15/20 08/15/20 Range/Units 07:44 07:44 07:44 WBC (3.8-10.6) k/uL RBC (4.30-5.90) m/uL Hgb (13.0-17.5) gm/dL Hct (39.0-53.0) % MCV (80.0-100.0) fL MCH (25.0-35.0) pg MCHC (31.0-37.0) g/dL RDW (11.5-15.5) % Plt Count (150-450) k/uL MPV Neutrophils % % Lymphocytes % % Monocytes % % Eosinophils % % Basophils % % Neutrophils # (1.3-7.7) k/uL Lymphocytes # (1.0-4.8) k/uL Monocytes # (0-1.0) k/uL Eosinophils # (0-0.7) k/uL Basophils # (0-0.2) k/uL PT (9.0-12.0) sec INR (<1.2) APTT (22.0-30.0) sec Sodium 137 (137-145) mmol/L Potassium 3.6 (3.5-5.1) mmol/L Chloride 108 H (98-107) mmol/L Carbon Dioxide 22 (22-30) mmol/L Anion Gap 7 mmol/L BUN 31 H (9-20) mg/dL Creatinine 1.31 H (0.66-1.25) mg/dL Est GFR (CKD-EPI)AfAm 57 (>60 ml/min/1.73 sqM) Est GFR (CKD-EPI)NonAf 49 (>60 ml/min/1.73 sqM) Glucose 228 H (74-99) mg/dL Plasma Lactic Acid Jimy 1.6 (0.7-2.0) mmol/L Calcium 9.3 (8.4-10.2) mg/dL Magnesium 1.7 (1.6-2.3) mg/dL Total Bilirubin 2.7 H (0.2-1.3) mg/dL AST 34 (17-59) U/L ALT 17 (4-49) U/L Alkaline Phosphatase 106 (38-126) U/L Creatine Kinase 882 H (55-170) U/L Troponin I 0.020 (0.000-0.034) ng/mL Total Protein 6.7 (6.3-8.2) g/dL Albumin 3.6 (3.5-5.0) g/dL TSH 1.080 (0.465-4.680) mIU/L Urine Color Urine Appearance (Clear) Urine pH (5.0-8.0) Ur Specific [place] (1.001-1.035) Urine Protein (Negative) Urine Glucose (UA) (Negative) Urine Ketones (Negative) Urine Blood (Negative) Urine Nitrite (Negative) Urine Bilirubin (Negative) Urine Urobilinogen (<2.0) mg/dL Ur Leukocyte Esterase (Negative) Urine RBC (0-5) /hpf Urine WBC (0-5) /hpf Ur Squamous Epith Cells (0-4) /hpf Amorphous Sediment (None) /hpf Urine Bacteria (None) /hpf Cellular Casts (0) /lpf Hyaline Casts (0-2) /lpf Urine Mucus (None) /hpf Coronavirus (PCR) (Not Detectd) 08/15/20 Range/Units 09:42 WBC (3.8-10.6) k/uL RBC (4.30-5.90) m/uL Hgb (13.0-17.5) gm/dL Hct (39.0-53.0) % MCV (80.0-100.0) fL MCH (25.0-35.0) pg MCHC (31.0-37.0) g/dL RDW (11.5-15.5) % Plt Count (150-450) k/uL MPV Neutrophils % % Lymphocytes % % Monocytes % % Eosinophils % % Basophils % % Neutrophils # (1.3-7.7) k/uL Lymphocytes # (1.0-4.8) k/uL Monocytes # (0-1.0) k/uL Eosinophils # (0-0.7) k/uL Basophils # (0-0.2) k/uL PT (9.0-12.0) sec INR (<1.2) APTT (22.0-30.0) sec Sodium (137-145) mmol/L Potassium (3.5-5.1) mmol/L Chloride (98-107) mmol/L Carbon Dioxide (22-30) mmol/L Anion Gap mmol/L BUN (9-20) mg/dL Creatinine (0.66-1.25) mg/dL Est GFR (CKD-EPI)AfAm (>60 ml/min/1.73 sqM) Est GFR (CKD-EPI)NonAf (>60 ml/min/1.73 sqM) Glucose (74-99) mg/dL Plasma Lactic Acid Jimy (0.7-2.0) mmol/L Calcium (8.4-10.2) mg/dL Magnesium (1.6-2.3) mg/dL Total Bilirubin (0.2-1.3) mg/dL AST (17-59) U/L ALT (4-49) U/L Alkaline Phosphatase (38-126) U/L Creatine Kinase (55-170) U/L Troponin I (0.000-0.034) ng/mL Total Protein (6.3-8.2) g/dL Albumin (3.5-5.0) g/dL TSH (0.465-4.680) mIU/L Urine Color Yellow Urine Appearance Clear (Clear) Urine pH 5.5 (5.0-8.0) Ur Specific [place] 1.023 (1.001-1.035) Urine Protein 2+ H (Negative) Urine Glucose (UA) 1+ H (Negative) Urine Ketones Trace H (Negative) Urine Blood Trace H (Negative) Urine Nitrite Negative (Negative) Urine Bilirubin Negative (Negative) Urine Urobilinogen <2.0 (<2.0) mg/dL Ur Leukocyte Esterase Negative (Negative) Urine RBC 2 (0-5) /hpf Urine WBC 2 (0-5) /hpf Ur Squamous Epith Cells <1 (0-4) /hpf Amorphous Sediment Few H (None) /hpf Urine Bacteria Rare H (None) /hpf Cellular Casts 3 (0) /lpf Hyaline Casts 10 H (0-2) /lpf Urine Mucus Few H (None) /hpf Coronavirus (PCR) (Not Detectd) Disposition Clinical Impression: Generalized weakness, Fall, Inability to walk, Low back pain Disposition: ADMITTED IP TO THIS [facility] Condition: Stable Is patient prescribed a controlled substance at d/c from ED?: No Referrals: Jluis Guillen DO [Primary Care Provider] - 1-2 days Time of Disposition: 10:36 Decision to Admit Reason: Admit from EC Decision Date: 08/15/20 Decision Time: 10:36
[2020-08-15] MEDS: SODIUM CHLORIDE 0.9% 1,000 ML IV SCH ×2 (07:04→21:57)
[2020-08-15] MEDS ORDERED: MORPHINE SULFATE 2 MG/ML SYRINGE IVP STA (07:15)
[2020-08-15 07:18] LABS: Basophils # (A) 0.1 k/uL (0-0.2); Basophils % (A) 1 %; Eosinophils # (A) 0.2 k/uL (0-0.7); Eosinophils % (A) 2 %; HCT 41.3 % (39.0-53.0); HGB 14.8 gm/dL (13.0-17.5); Lymphocytes % (A) 20 %; MCHC 35.9 g/dL (31.0-37.0); MCV 89.3 fL (80.0-100.0); Mean Platelet Volume 7.3; Monocytes # (A) 0.8 k/uL (0-1.0); Monocytes % (A) 8 %; Neutrophils % (A) 69 %; Platelet Count 247 k/uL (150-450); RBC 4.62 m/uL (4.30-5.90); RDW 13.1 % (11.5-15.5); WBC 10.1 k/uL (3.8-10.6)
[2020-08-15 08:11] LABS: Albumin 3.6 g/dL (3.5-5.0); Calcium 9.3 mg/dL (8.4-10.2); Magnesium 1.7 mg/dL (1.6-2.3); Potassium 3.6 mmol/L (3.5-5.1); Total Bilirubin 2.7 mg/dL (0.2-1.3); Total Protein 6.7 g/dL (6.3-8.2)
[2020-08-15 08:21] LABS: Partial Thromboplastin Time 26.8 sec (22.0-30.0)
--- NOTE | 2020-08-15 09:52 | CT ---
EXAM: CT Lumbar Spine Without Intravenous Contrast CLINICAL HISTORY: ITS.REASON CT Reason: fall TECHNIQUE: Axial computed tomography images of the lumbar spine without intravenous contrast. CTDI is 52.7 mGy and DLP is 1895 mGy-cm. This CT exam was performed using one or more of the following dose reduction techniques: automated exposure control, adjustment of the mA and/or kV according to patient size, and/or use of iterative reconstruction technique. COMPARISON: No relevant prior studies available. FINDINGS: Vertebrae: Osteopenia. Lumbar degenerative disc disease and facet arthropathy. Vacuum disc phenomenon. Opposing endplate osteophyte formation and endplate irregularities. Moderate to severe loss of disc height greatest at L4-5. Disc osteophyte complexes result in mild to moderate degrees of spinal canal stenosis, greatest at L4-5. Schmorl's node-like deformity in the superior endplate of L2. No acute fracture. Discs/spinal canal/neural foramina: Neural foraminal stenosis, greatest at L5-S1, moderate to severe. Moderate bilateral neural foraminal narrowing at L4-5. Degenerative changes in the SI joints. Soft tissues: Unremarkable. Vasculature: Heavily calcified plaque abdominal aorta and branches. Kidneys and ureters: Nonobstructive renal stones. IMPRESSION: 1. No fracture or subluxation. 2. Multilevel lumbar degenerative disc disease and facet arthropathy. Spinal canal stenosis, greatest at L4-5 which is moderate.
[2020-08-15 10:17] LABS: Amorphous Sediment,Urine Few /hpf; Appearance,Urine Clear (Clear); Bacteria,Urine Rare /hpf; Bilirubin,Urine Negative (Negative); Blood,Urine Trace (Negative); Cellular Casts,Urine 3 /lpf (0); Color,Urine Yellow; Glucose,Urine (UA) 1+ (Negative); Hyaline Casts,Urine 10 /lpf (0-2); Ketones,Urine Trace (Negative); Leukocyte Esterase,Urine Negative (Negative); Mucus,Urine Few /hpf; Nitrite,Urine Negative (Negative); PH, Urine 5.5 (5.0-8.0); Protein,Urine 2+ (Negative); RBC,Urine 2 /hpf (0-5); Specific Gravity,Urine 1.023 (1.001-1.035); Squamous Epithelial Cell,Urine <1 /hpf (0-4); Urobilinogen,Urine <2.0 mg/dL (<2.0); WBC,Urine 2 /hpf (0-5)
[2020-08-15] MEDS ORDERED: NALOXONE 0.4 MG/ML 1 ML VIAL IV PRN (10:31)
[2020-08-15] MEDS ORDERED: METOPROLOL SUCCINATE (ER) 50 MG TAB.ER.24H PO STA (14:14)
[2020-08-15] MEDS ORDERED: DILTIAZEM CD 300 MG CAP.ER.24H PO STA (14:14)
[2020-08-15] MEDS: ACETAMINOPHEN TAB 325 MG TAB PO PRN (14:44)
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
[2020-08-15] MEDS: INSULIN ASPART (NovoLOG) 100 UNIT/ML VIAL SQ SCH ×2 (17:03→20:12)
[2020-08-15] MEDS: APIXABAN 2.5 MG TABLET PO SCH (20:12)
[2020-08-15] MEDS: POTASSIUM CHLORIDE ER 20 MEQ TAB.ER PO SCH (20:12)
[2020-08-15] MEDS: INSULIN DETEMIR (LEVEMIR) 100 UNIT/ML SYR SQ SCH (20:12)
[2020-08-16] MEDS: ACETAMINOPHEN TAB 325 MG TAB PO PRN ×2 (01:15→12:37)
[2020-08-16] MEDS: SYMBICORT 80-4.5 MCG INHALER INHALATION SCH ×3 (03:41→20:02)
[2020-08-16 06:26] LABS: Calcium 8.9 mg/dL (8.4-10.2); Magnesium 1.8 mg/dL (1.6-2.3); Potassium 3.5 mmol/L (3.5-5.1)
[2020-08-16] MEDS: INSULIN ASPART (NovoLOG) 100 UNIT/ML VIAL SQ SCH ×4 (06:38→20:56)
[2020-08-16] MEDS: IPRATROPIUM 0.5 MG/2.5 ML NEBU INHALATION SCH ×4 (07:48→20:02)
--- NOTE | 2020-08-16 09:29 | XR ---
EXAM: XR Bilateral Hips With Pelvis When Performed, 2 or 3 Views CLINICAL HISTORY: ITS.REASON XR Reason: xr -per dr. sullivan TECHNIQUE: Three or four views of the bilateral hips with pelvis when performed. COMPARISON: No relevant prior studies available. FINDINGS: Bones/joints: Degenerative changes in both hips. Degenerative changes in the visualized lower lumbar spine. No acute fracture. No dislocation. Soft tissues: Unremarkable. Vasculature: Pelvic calcifications likely phleboliths. Gastrointestinal tract: Nonspecific moderate gas filled bowel loops. IMPRESSION: 1. No gross acute bony abnormality. 2. Degenerative changes.
[2020-08-16] MEDS: ASPIRIN 81 MG PO SCH (09:46)
[2020-08-16] MEDS: METOPROLOL SUCCINATE (ER) 50 MG TAB.ER.24H PO SCH (09:46)
[2020-08-16] MEDS: POTASSIUM CHLORIDE ER 20 MEQ TAB.ER PO SCH ×2 (09:46→20:56)
[2020-08-16] MEDS: NIACIN TR 500 MG CAPLET PO SCH (09:46)
[2020-08-16] MEDS: DILTIAZEM CD 300 MG CAP.ER.24H PO SCH (09:46)
[2020-08-16] MEDS: APIXABAN 2.5 MG TABLET PO SCH ×2 (09:46→21:03)
[2020-08-16] MEDS: INSULIN DETEMIR (LEVEMIR) 100 UNIT/ML SYR SQ SCH ×2 (09:47→20:57)
[2020-08-16] MEDS: lisinopriL 20 MG TAB PO SCH (10:23)
[2020-08-16] MEDS: SODIUM CHLORIDE 0.9% 1,000 ML IV SCH (12:35)
--- NOTE | 2020-08-16 12:56 | P.PN ---
Subjective Progress Note Date: 08/16/20 Patient is doing well today. He is complaining of lower back pain. No acute events overnight reported by nursing staff Objective - Vital Signs Vital signs: Vital Signs Temp 98.1 F 08/16/20 01:50 Pulse 72 08/16/20 11:28 Resp 18 08/16/20 01:50 BP 140/75 08/16/20 01:50 Pulse Ox 93 L 08/16/20 01:50 Intake & Output 08/15/20 08/16/20 08/16/20 18:59 06:59 18:59 Intake Total 350 Output Total 200 275 Balance 150 -275 Weight 135.624 kg Intake: Oral 350 Output: Urine 200 275 Other: # Voids 1 1 # Bowel Movements 1 - Exam General: The patient is awake and alert, in no distress Eye: there is normal conjunctiva bilaterally. Neck: The neck is supple, there is no JVD. Cardiovascular: Normal S1-S2, no S3-S4, no murmurs. Respiratory: Lungs clear to auscultation bilaterally Gastrointestinal: Abdomen is soft, nontender Musculoskeletal: There is no pedal edema. Neurological:. Speech is normal. Skin: Skin is warm and dry - Labs CBC & Chem 7: 08/15/20 07:05 08/16/20 06:04 Labs: Abnormal Lab Results - Last 24 Hours (Table) 08/15/20 08/16/20 Range/Units 13:17 06:04 Chloride 111 H (98-107) mmol/L Carbon Dioxide 21 L (22-30) mmol/L BUN 24 H (9-20) mg/dL Glucose 107 H (74-99) mg/dL Creatine Kinase 673 H (55-170) U/L Assessment and Plan Assessment: 85-year-old man with medical history of colon cancer with metastases to the liver status post chemotherapy and partial resection of the colon, history of DVT previously on Coumadin complicated by coagulopathy, now on Eliquis, HTN/HLD/DM 2, COPD, heart failure with pacemaker presented with weakness and recent fall. On arrival, patient is hemodynamically stable. Chemistries demonstrated acute kidney injury due to creatinine of 1.3 from baseline of 0.9. BNP was elevated to 4090. EKG demonstrated atrial paced rhythm at a rate of 60 with right bundle branch block and left anterior fascicular block, no ischemic changes. Given his fall, lumbar CT was done which showed multilevel lumbar degenerative disc disease, but no acute fractures or subluxation. He was placed on observation for further management of his medical problems noted below 1. Mechanical Fall with Generalized Weakness, awaiting PT/OT evaluation 2. Rhabdomyolysis, improved 3. Acute Kidney Injury, resolved 4. Hx of DVT 5. Hx of Colon Cancer 6. Chronic Congestive Heart Failure 7. Atrial Paced Rhythm with pacemaker 8. HTN 9. HLD 10. DM II 11. COPD without exacerbation 85-year-old man with medical history of colon cancer with metastases to the liver status post chemotherapy and partial resection of the colon, history of DVT previously on Coumadin complicated by coagulopathy, now on Eliquis, HTN/HLD/DM 2, COPD, heart failure with pacemaker presented with weakness and recent fall, with evidence of ANTHONY and mild rhabdomyolysis on labwork. 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
--- NOTE | 2020-08-16 14:00 | ECHOF ---
Referral Reason:Systolic blowing murmur, syncope, hx CHF/Pacemaker MEASUREMENTS -------- HEIGHT: 182.9 cm WEIGHT: 135.6 kg BP: 140/75 IVSd: 1.6 cm (0.6 - 1.1) LVIDd: 3.7 cm (3.9 - 5.3) LVPWd: 1.3 cm (0.6 - 1.1) IVSs: 1.8 cm LVIDs: 1.9 cm LVPWs: 1.5 cm Ao Diam: 3.8 cm (2.0 - 3.7) AV Cusp: 1.5 cm (1.5 - 2.6) MV E Jacoby: 0.88 m/s MV DecT: 323 ms MV A Jacoby: 1.25 m/s MV E/A Ratio: 0.71 AV maxP.92 mmHg AV meanP.33 mmHg RAP: 5.00 mmHg RVSP: 31.64 mmHg FINDINGS -------- Sinus rhythm. This was a technically difficult study with suboptimal views. The left ventricular size is normal. There is moderate concentric left ventricular hypertrophy. O verall left ventricular systolic function is normal with, an EF between 55 - 60 %. The RV was not well visualized. The left atrium was not well visualized. The right atrium was not well visualized. 5.0mg of Lumason was utilized for enhancement of images Interatrial and interventricular septum intact. There is no evidence of aortic regurgitation. Mild aortic stenosis with peak/mean pressure gradient of 21.92mmHg / 10.33mmHg , the aortic valve area by continuity equation is {DAMIAN}. Peak/mean gradie nt across the Aortic Valve is 21.92mmHg / 10.33mmHg. Aortic valve not well viasualized although jimmie ears heavily calcified with decreased cusp separation. Only mild aortic stenosis however by Doppler velocity interrogation. Mild mitral regurgitation is present. Mild tricuspid regurgitation present. There is no evidence of pulmonary hypertension. The right v entricular systolic pressure, as measured by Doppler, is 31.64mmHg. The pulmonic valve was not well visualized. The aortic root size is normal. IVC Not well visulized. There is no pericardial effusion. CONCLUSIONS -------- 1. The left ventricular size is normal. 2. There is moderate concentric left ventricular hypertrophy. 3. Overall left ventricular systolic function is normal with, an EF between 55 - 60 %. 4. Mild aortic stenosis with peak/mean pressure gradient of 21.92mmHg / 10.33mmHg , the aortic valve area by continuity equation is {DAMIAN}. 5. Peak/mean gradient across the Aortic Valve is 21.92mmHg / 10.33mmHg. 6. Aortic valve not well viasualized although appears heavily calcified with decreased cusp separatio n. Only mild aortic stenosis however by Doppler velocity interrogation. 7. Mild mitral regurgitation is present. 8. Mild tricuspid regurgitation present. BRICK BAKER: Amy Tyler RDCS
--- NOTE | 2020-08-16 15:38 | CONS ---
CONSULTATION DATE OF SERVICE: 08/16/2020 REASON FOR CONSULTATION: Low back pain. HISTORY OF PRESENT ILLNESS: History obtained from Mr. Chandler is he fell in his garage 2 days ago. He was unable to get up for almost 12 hours. He lives by himself. He was able to open the garage door and call for help and a neighbor assisted him. EMS came to his house, helped him up and he appeared to have recovered and was able to walk with his walker. He declined hospital transferred at that time. After another period of time and some rest, he was unable to get about and the pain was severe. EMS was summoned again and this time he was brought to the emergency room for evaluation. PHYSICAL EXAMINATION: Examination this morning at approximately 7:30 am demonstrated he was in no acute distress and he was sleeping quite soundly. He was alert, oriented, able to answer questions very well. His pain is limited to his low back area. It does not radiate much into his lower extremities. There is a slight amount into the right buttock, but does not really go down his leg. He denies any numbness or weakness of either extremity. Plantar flexion and dorsiflexion are intact. He is not able to straight leg raise well, but some of this is due to his obesity with a BMI of 40.6. He also has advanced arthritis of his lumbar spine and his knees and he is 85 years old. Passive motion of his left leg does not really produce any discomfort including hip rotation. Hip rotation on the right, however, had some discomfort in the groin area. Otherwise, palpation demonstrated the majority of his tenderness was in the lumbar spine. Muscle spasm was not really palpable due to his size. Again, his discomfort was moderate and not severe. X-RAY: CT scan of his lumbar spine was negative for fracture, dislocation. There were typical degenerative changes. No hip x-rays were initially available. Hip and pelvis x-rays were ordered and were reported as negative. The concern was for potential impacted subcapital femur fracture on the right, which was not reported. IMPRESSION: 1. Advanced degenerative osteoarthritis, lumbar spine. 2. Acute sprain with acute pain and spasm. DISCUSSION: This 85-year-old man basically sustained a severe back sprain. There is no signs of fracture and no neurologic involvement. As such, as his symptoms subside, he is free to get up to move about and ambulate p.r.n. He orthopedically is stable for discharge when he is medically stable. I suspect he is being monitored for replacement of fluids, etc. There may also be some social factors as he lives alone. Otherwise, no other orthopedic intervention is indicated. He is welcome to recheck in our office on a p.r.n. basis. ALEJANDRO / BORA: [id number] /
[2020-08-16] MEDS: MELATONIN 3 MG TABLET PO SCH (20:56)
[2020-08-17] MEDS: ACETAMINOPHEN TAB 325 MG TAB PO PRN ×2 (01:56→09:30)
[2020-08-17] MEDS: INSULIN ASPART (NovoLOG) 100 UNIT/ML VIAL SQ SCH ×4 (06:26→20:33)
[2020-08-17] MEDS: INSULIN DETEMIR (LEVEMIR) 100 UNIT/ML SYR SQ SCH ×2 (08:27→20:34)
[2020-08-17] MEDS: NIACIN TR 500 MG CAPLET PO SCH (08:28)
[2020-08-17] MEDS: APIXABAN 2.5 MG TABLET PO SCH ×2 (08:28→20:34)
[2020-08-17] MEDS: DILTIAZEM CD 300 MG CAP.ER.24H PO SCH (08:28)
[2020-08-17] MEDS: lisinopriL 20 MG TAB PO SCH (08:28)
[2020-08-17] MEDS: METOPROLOL SUCCINATE (ER) 50 MG TAB.ER.24H PO SCH (08:28)
[2020-08-17] MEDS: ASPIRIN 81 MG PO SCH (08:28)
[2020-08-17 08:59] LABS: African American GFR (CKD) >90 (>60 ml/min/1.73 sqM); Anion Gap 8 mmol/L; Blood Urea Nitrogen 14 mg/dL (9-20); Calcium 9.2 mg/dL (8.4-10.2); Carbon Dioxide 20 mmol/L (22-30); Chloride 109 mmol/L (98-107); Creatine Kinase 133 U/L (55-170); Glucose 121 mg/dL (74-99); Non-African American GFR(CKD) 79 (>60 ml/min/1.73 sqM); Potassium 3.2 mmol/L (3.5-5.1); Sodium 137 mmol/L (137-145)
[2020-08-17] MEDS: SYMBICORT 80-4.5 MCG INHALER INHALATION SCH ×2 (09:16→20:01)
[2020-08-17] MEDS: IPRATROPIUM 0.5 MG/2.5 ML NEBU INHALATION SCH ×4 (09:16→20:00)
--- NOTE | 2020-08-17 10:27 | XR ---
EXAMINATION TYPE: XR chest 1V DATE OF EXAM: 08/15/2020 COMPARISON: 04/06/2019 HISTORY: 85-year-old male with weakness TECHNIQUE: Single frontal view of the chest is obtained. FINDINGS: Left anterior chest wall pacemaker generator with right atrial and right ventricular leads. Heart mil dly enlarged. Hazy densities relating to overlying tissue. Mild patchy right basilar opacity. No siza ble effusion. IMPRESSION: Limited by patient body habitus and portable technique. Borderline heart size. Mild patchy right basi lar atelectasis versus early infiltrate.
[2020-08-17] MEDS ORDERED: POTASSIUM CHLORIDE ER 20 MEQ TAB.ER PO STA (11:15)
[2020-08-17] MEDS: MAGNESIUM SULFATE-D5W PMX 1 GM in DEXTROSE/WATER 1 100ML.BAG IVPB SCH ×2 (11:41→12:53)
[2020-08-17] MEDS: CYCLOBENZAPRINE 5 MG TAB PO PRN (12:11)
--- NOTE | 2020-08-17 16:59 | P.PN ---
Subjective Progress Note Date: 08/17/20 (delayed charting seen at 1115) Principal diagnosis: back pain, fall Patient is a 85-year-old male with a history of colon cancer with metastases to the liver status post chemotherapy and partial resection, prior DVT on Eliquis therapy, hypertension, dyslipidemia, diabetes mellitus, COPD, and heart failure who presented with weakness and recent fall. In the ER he underwent an extensive evaluation. His some ANTHONY with a creatinine of 1.3, along with an elevated BNP, Lumbar spine CT showed mulilevel lumbar degenerative changes and facet arthropathy , with spinal canal stenosis greatest at L4-5. He was admitted for further monitoring. He was started on IVF with elevated CPK. He was seen by therapy who recommended ROGE. Ortho felt he likely has a severe lumbar strain adn recommended conservative management. Echocardiogram showed an ejection fraction of 55-60%, moderate LVH, and mild aortic stenosis. Hip and pelvic x-ray showed degenerative changes in both hips. Patient seen and examined at bedside. He reports that he has been having loose stools today with approximately 3 watery stools. He continues to struggle getting sitting to standing. He denies any nausea or abdominal pain. No chest pain or shortness of breath. General: non toxic, no distress, appears at stated age Derm: warm, dry Head: atraumatic, normocephalic, symmetric Eyes: EOMI, no lid lag, anicteric sclera Mouth: no lip lesion, mucus membranes moist Cardiovascular: S1S2 reg, no murmur, positive posterior tibial pulse bilateral, Lungs: CTA bilateral, no rhonchi, no rales , no accessory muscle use Abdominal: soft, nontender to palpation, no guarding, no appreciable organomegaly Ext: no gross muscle atrophy, no edema, no contractures Neuro: CN II-XI grossly intact, no focal neuro deficits Psych: Alert, oriented, appropriate affect Lumbar strain secondary to fall - ortho recs appreciated - add muscle relaxor to tylenol - fall precautions Diarrhea - check C diff Generalized weakness with mechanical fall - PT/OT recs - SNF on discharge - Fall precautions DM 2 - levemir - SSI - follow BS HTN - stable - diltiazem, Metoprolol Chronic diastolic CHF, EF 55-60% - not chronically on diuretics - lisinopril - metoprolol - follow fluid status closely Chronic: Hx of colon ca Hx of DVT COPD without exacerbation ANTHONY, resolved Rhabdo, resolved DVT prophylaxis: Eliquis Discussed with: patient, nursing Anticipated discharge: in 1-[address]: SNF A total of 25 minutes was spent on the care of this complex patient more than 50% of the time was spent in counseling and care coordination. Objective - Vital Signs Vital signs: Vital Signs Temp 97.6 F 08/17/20 15:00 Pulse 63 08/17/20 15:00 Resp 16 08/17/20 15:00 BP 139/74 08/17/20 15:00 Pulse Ox 94 L 08/17/20 15:00 Intake & Output 08/16/20 08/17/20 08/17/20 18:59 06:59 18:59 Intake Total 560 Output Total 275 680 2 Balance -275 -680 558 Intake: Intake, IV Titration 200 Amount Magnesium Sulfate-D5w Pmx 200 1 gm In Dextrose/Water 1 100ml.bag @ 100 mls/hr IVPB Q1H SELINA Rx#: [id number] Oral 360 Output: Urine 275 680 Stool 2 Other: Voiding Method Urinal # Voids 1 1 1 # Bowel Movements 0 1 1 - Labs CBC & Chem 7: 08/15/20 07:05 08/17/20 08:11 Labs: Abnormal Lab Results - Last 24 Hours (Table) 08/17/20 Range/Units 08:11 Potassium 3.2 L (3.5-5.1) mmol/L Chloride 109 H (98-107) mmol/L Carbon Dioxide 20 L (22-30) mmol/L Glucose 121 H (74-99) mg/dL
--- NOTE | 2020-08-17 17:51 | PN ---
PROGRESS NOTE DATE OF SERVICE: 08/17/2020 Time of the exam: 1 o'clock p.m. 85-year-old man is admitted in observation 159 for an acute low back pain. His pain is still significant and he is unable to get up and move about under his own power. Speaking to the nurse, it took 3 people to get him to the bathroom and back. Otherwise his status is stable. IMPRESSION: 1. Acute lumbar sprain. 2. Advanced degenerative osteoarthritis. PLAN: The problem at this time, is he lives alone and is unable to move about under his own power. As such, it is not possible to discharge him home. He may require placement which we will have to be worked out over the next couple days. In the meantime, he does not have the adequate social support system to be discharged. Treatment in the hospital otherwise primarily symptomatic. ALEJANDRO / BORA: [id number] /
[2020-08-17] MEDS: MELATONIN 3 MG TABLET PO SCH (20:34)
[2020-08-18] MEDS: ACETAMINOPHEN TAB 325 MG TAB PO PRN ×3 (00:01→20:50)
[2020-08-18] MEDS: CYCLOBENZAPRINE 5 MG TAB PO PRN ×2 (03:01→17:25)
[2020-08-18] MEDS: INSULIN ASPART (NovoLOG) 100 UNIT/ML VIAL SQ SCH ×4 (06:33→20:51)
[2020-08-18] MEDS: SYMBICORT 80-4.5 MCG INHALER INHALATION SCH ×2 (07:08→20:07)
[2020-08-18] MEDS: IPRATROPIUM 0.5 MG/2.5 ML NEBU INHALATION SCH ×4 (07:09→20:07)
[2020-08-18 07:22] LABS: Basophils # (A) 0.1 k/uL (0-0.2); Basophils % (A) 1 %; Eosinophils # (A) 0.2 k/uL (0-0.7); Eosinophils % (A) 2 %; HCT 36.2 % (39.0-53.0); HGB 12.3 gm/dL (13.0-17.5); Lymphocytes # (A) 2.1 k/uL (1.0-4.8); Lymphocytes % (A) 22 %; MCH 30.1 pg (25.0-35.0); MCHC 33.9 g/dL (31.0-37.0); MCV 88.6 fL (80.0-100.0); Mean Platelet Volume 6.7; Monocytes # (A) 0.8 k/uL (0-1.0); Monocytes % (A) 9 %; Neutrophils # (A) 6.2 k/uL (1.3-7.7); Neutrophils % (A) 65 %; Platelet Count 286 k/uL (150-450); RBC 4.08 m/uL (4.30-5.90); RDW 12.8 % (11.5-15.5); WBC 9.6 k/uL (3.8-10.6)
[2020-08-18 07:33] LABS: Calcium 8.9 mg/dL (8.4-10.2)
[2020-08-18] MEDS ORDERED: POTASSIUM BICARBONATE/CIT AC 20 MEQ TABLET.EFF PO ONE (07:53)
[2020-08-18] MEDS: lisinopriL 20 MG TAB PO SCH (09:01)
[2020-08-18] MEDS: ASPIRIN 81 MG PO SCH (09:02)
[2020-08-18] MEDS: METOPROLOL SUCCINATE (ER) 50 MG TAB.ER.24H PO SCH (09:02)
[2020-08-18] MEDS: POTASSIUM CHLORIDE ER 20 MEQ TAB.ER PO SCH ×3 (09:02→15:14)
[2020-08-18] MEDS: NIACIN TR 500 MG CAPLET PO SCH (09:03)
[2020-08-18] MEDS: DILTIAZEM CD 300 MG CAP.ER.24H PO SCH (09:03)
[2020-08-18] MEDS: POTASSIUM CHLORIDE 10 MEQ in WATER FOR INJECTION 1 100ML.BAG IVPB SCH ×2 (09:03→11:10)
[2020-08-18] MEDS: APIXABAN 2.5 MG TABLET PO SCH ×2 (09:03→20:50)
[2020-08-18] MEDS: INSULIN DETEMIR (LEVEMIR) 100 UNIT/ML SYR SQ SCH ×2 (09:04→20:52)
[2020-08-18 12:06] LABS: Glucose,Whole Blood 106 mg/dL (75-99)
[2020-08-18] MEDS ORDERED: tiZANidine 4 MG TAB PO PRN (14:05)
--- NOTE | 2020-08-18 14:12 | P.PN ---
Subjective Progress Note Date: 08/18/20 (delayed charting seen at 1055) Principal diagnosis: back pain, fall Patient is a 85-year-old male with a history of colon cancer with metastases to the liver status post chemotherapy and partial resection, prior DVT on Eliquis therapy, hypertension, dyslipidemia, diabetes mellitus, COPD, and heart failure who presented with weakness and recent fall. In the ER he underwent an extensive evaluation. His some ANTHONY with a creatinine of 1.3, along with an elevated BNP, Lumbar spine CT showed mulilevel lumbar degenerative changes and facet arthropathy , with spinal canal stenosis greatest at L4-5. He was admitted for further monitoring. He was started on IVF with elevated CPK. He was seen by therapy who recommended ROGE. Ortho felt he likely has a severe lumbar strain and recommended conservative management. Echocardiogram showed an ejection fraction of 55-60%, moderate LVH, and mild aortic stenosis. Hip and pelvic x-ray showed degenerative changes in both hips. His acute kidney injury resolved and his fluids were stopped. He continued to have some low back pain which was treated with Tylenol and Flexeril. Patient did report some sedation with Flexeril but it completely relieved his back pain. Patient seen and examined at bedside. Diarrhea is resolved, back pain is resolved, feels like he is moving better. Still feeling fatigued and weak. Reports somnolence sedation secondary to Flexeril. We discussed him not using Flexeril again until nighttime so he can get a good night sleep area and patient is in agreement and will try Tylenol throughout the day. Decreased appetite this morning but had intact appetite last night. General: non toxic, no distress, appears at stated age Derm: warm, dry Head: atraumatic, normocephalic, symmetric Eyes: EOMI, no lid lag, anicteric sclera Mouth: no lip lesion, mucus membranes moist Cardiovascular: S1S2 reg, no murmur, positive posterior tibial pulse bilateral, Lungs: CTA bilateral, no rhonchi, no rales , no accessory muscle use Abdominal: soft, nontender to palpation, no guarding, no appreciable organomega ly Ext: no gross muscle atrophy, no edema, no contractures Neuro: CN II-XI grossly intact, no focal neuro deficits Psych: Alert, oriented, appropriate affect Lumbar strain secondary to fall - ortho recs appreciated - flexeril BID prn, tylenol - fall precautions Generalized weakness with mechanical fall - PT/OT recs - SNF on discharge - Fall precautions DM 2 - levemir decreased as AM blood sugar 71 - SSI - follow BS HTN - stable - diltiazem, Metoprolol Chronic diastolic CHF, EF 55-60% - not chronically on diuretics - lisinopril - metoprolol - follow fluid status closely Chronic: Hx of colon ca Hx of DVT COPD without exacerbation Diarrhea, resolved ANTHONY, resolved Rhabdo, resolved DVT prophylaxis: Anat Discussed with: patient, nursing Anticipated discharge: in 1-[address]: SNF A total of 25 minutes was spent on the care of this complex patient more than 50% of the time was spent in counseling and care coordination. Objective - Vital Signs Vital signs: Vital Signs Temp 97.7 F 08/18/20 09:00 Pulse 63 08/18/20 11:20 Resp 16 08/18/20 09:00 BP 151/72 08/18/20 09:00 Pulse Ox 95 08/18/20 09:00 Intake & Output 08/17/20 08/18/20 08/18/20 18:59 06:59 18:59 Intake Total 560 697 Output Total 2 200 Balance 558 -200 697 Intake: Intake, IV Titration 200 Amount Magnesium Sulfate-D5w Pmx 200 1 gm In Dextrose/Water 1 100ml.bag @ 100 mls/hr IVPB Q1H SELINA Rx#: [id number] Oral 360 697 Output: Urine 200 Stool 2 Other: Voiding Method Urinal Urinal # Voids 1 # Bowel Movements 1 - Labs CBC & Chem 7: 08/18/20 06:37 08/18/20 06:37 Labs: Abnormal Lab Results - Last 24 Hours (Table) 08/18/20 08/18/20 08/18/20 Range/Units 06:37 06:37 12:05 RBC 4.08 L (4.30-5.90) m/uL Hgb 12.3 L (13.0-17.5) gm/dL Hct 36.2 L (39.0-53.0) % Sodium 135 L (137-145) mmol/L Potassium 3.0 L (3.5-5.1) mmol/L Chloride 108 H (98-107) mmol/L Carbon Dioxide 20 L (22-30) mmol/L Glucose 71 L (74-99) mg/dL POC Glucose (mg/dL) 106 H (75-99) mg/dL
[2020-08-18 15:30] LABS: Glucose,Whole Blood 166 mg/dL (75-99)
[2020-08-18 15:30] LABS: Glucose,Whole Blood 143 mg/dL (75-99)
[2020-08-18 15:30] LABS: Glucose,Whole Blood 71 mg/dL (75-99)
[2020-08-18 17:02] LABS: Glucose,Whole Blood 182 mg/dL (75-99)
[2020-08-18 20:37] LABS: Glucose,Whole Blood 207 mg/dL (75-99)
[2020-08-18] MEDS: MELATONIN 3 MG TABLET PO SCH (20:50)
[2020-08-19 06:34] LABS: Glucose,Whole Blood 96 mg/dL (75-99)
[2020-08-19] MEDS: ACETAMINOPHEN TAB 325 MG TAB PO PRN ×2 (07:19→14:54)
[2020-08-19] MEDS: IPRATROPIUM 0.5 MG/2.5 ML NEBU INHALATION SCH ×3 (07:43→15:28)
[2020-08-19] MEDS: SYMBICORT 80-4.5 MCG INHALER INHALATION SCH (07:43)
[2020-08-19 07:45] LABS: HCT 37.8 % (39.0-53.0); HGB 13.1 gm/dL (13.0-17.5); MCH 31.2 pg (25.0-35.0); MCHC 34.6 g/dL (31.0-37.0); MCV 90.2 fL (80.0-100.0); Mean Platelet Volume 6.6; Platelet Count 310 k/uL (150-450); RBC 4.19 m/uL (4.30-5.90); RDW 12.9 % (11.5-15.5); WBC 10.4 k/uL (3.8-10.6)
[2020-08-19 08:09] LABS: Calcium 9.1 mg/dL (8.4-10.2); Potassium 3.3 mmol/L (3.5-5.1)
[2020-08-19] MEDS ORDERED: DILTIAZEM CD 240 MG CAP.ER.24H PO SCH (09:00)
[2020-08-19] MEDS ORDERED: POTASSIUM CHLORIDE ER 20 MEQ TAB.ER PO SCH (09:00)
[2020-08-19] MEDS: INSULIN ASPART (NovoLOG) 100 UNIT/ML VIAL SQ SCH ×2 (09:52→13:04)
[2020-08-19] MEDS: lisinopriL 20 MG TAB PO SCH (10:04)
[2020-08-19] MEDS: ASPIRIN 81 MG PO SCH (10:04)
[2020-08-19] MEDS: METOPROLOL SUCCINATE (ER) 50 MG TAB.ER.24H PO SCH (10:04)
[2020-08-19] MEDS: APIXABAN 2.5 MG TABLET PO SCH (10:05)
[2020-08-19] MEDS: NIACIN TR 500 MG CAPLET PO SCH (10:05)
[2020-08-19 10:27] VITALS: BP 149/72; RESP 20; TEMP 97.6
--- NOTE | 2020-08-19 10:40 | P.PN ---
Subjective Progress Note Date: 08/19/20 This patient is an 85-year-old male that we are following for acute low back pain, lumbar degenerative disc disease, and an acute lumbar strain. Patient is seen and examined bedside today. He states his back pain has improved since admission, he states he was having no pain yesterday. Although he again has begun to experience low back pain today. He states the pain is improved with tylenol and flexeril. He denies any numbness or tingling of the bilateral lower extremities. He denies chest pain, shortness of breath, nausea, vomiting. He overall feels well. He has no new complaints today. Vital signs stable. Objective - Vital Signs Vital signs: Vital Signs Temp 97.6 F 08/19/20 09:56 Pulse 63 08/19/20 09:56 Resp 20 08/19/20 09:56 BP 149/72 08/19/20 09:56 Pulse Ox 95 08/19/20 09:56 Intake & Output 08/18/20 08/19/20 08/19/20 18:59 06:59 18:59 Intake Total 997 480 Output Total 475 150 Balance 522 330 Intake: Oral 997 480 Output: Urine 475 150 Other: Voiding Method Urinal Urinal # Voids 1 # Bowel Movements 1 - Exam On inspection of the low back, there are no lacerations, abrasions, ecchymosis or erythema of the skin. On palpation of the lumbar spine, there are no step- offs or obvious deformities. Very mild pain on palpation of the lumbar paraspinal muscles. Patient is able to perform straight leg raises bilaterally without pain or issue. He has good strength with bilateral dorsiflexion and plantar flexion of the ankles and great toes. Motor and sensory function intact of the bilateral lower extremities. Calves are soft and nontender to palpation bilaterally, no signs of DVT. - Labs CBC & Chem 7: 08/19/20 07:24 08/19/20 07:24 Labs: Abnormal Lab Results - Last 24 Hours (Table) 08/17/20 08/17/20 08/18/20 Range/Units 16:23 20:28 06:07 RBC (4.30-5.90) m/uL Hct (39.0-53.0) % Sodium (137-145) mmol/L Potassium (3.5-5.1) mmol/L POC Glucose (mg/dL) 166 H 143 H 71 L (75-99) mg/dL 08/18/20 08/18/20 08/18/20 Range/Units 12:05 17:00 20:35 RBC (4.30-5.90) m/uL Hct (39.0-53.0) % Sodium (137-145) mmol/L Potassium (3.5-5.1) mmol/L POC Glucose (mg/dL) 106 H 182 H 207 H (75-99) mg/dL 08/19/20 08/19/20 Range/Units 07:24 07:24 RBC 4.19 L (4.30-5.90) m/uL Hct 37.8 L (39.0-53.0) % Sodium 136 L (137-145) mmol/L Potassium 3.3 L (3.5-5.1) mmol/L POC Glucose (mg/dL) (75-99) mg/dL Assessment and Plan Assessment: Acute low back pain Acute lumbar strain Lumbar degenerative disc disease Plan: - Continue with symptomatic treatment at this time. As symptoms improve, he may continue to ambulate and mobilize as tolerated. He should get up with assistance only. - Continue physical therapy for gait and balance training. - Social work is currently seeing the patient to determine rehab placement. - We will continue to follow patient peripherally and make recommendations as needed. He may follow-up in our office after discharge as needed. Patient was discussed with Dr. Aditya Bang.
[2020-08-19 11:33] VITALS: PULSE 60
[2020-08-19 12:11] LABS: Glucose,Whole Blood 138 mg/dL (75-99)
[2020-08-19] MEDS ORDERED: POTASSIUM BICARBONATE/CIT AC 20 MEQ TABLET.EFF PO ONE (12:34)
--- NOTE | 2020-08-19 12:52 | P.DS ---
Providers Date of admission: 08/17/20 14:41 Expected date of discharge: 08/19/20 Attending physician: Mariela Radford Consults: 08/15/20 10:41 Consult Physician Routine Consulting Provider: Reji Bang Consult Reason/Comments: low back pain/fall Do you want consulting provider notified?: Yes, Notify in am Primary care physician: Jluis Guillen DO Hospital Course: Discharge Diagnosis: Lumbar strain secondary to fall Generalized weakness with mechanical fall DM 2 HTN Chronic diastolic CHF, EF 55-60% Diarrhea DVT COPD without exacerbation Hospital Course: Patient is a 85-year-old male with a history of colon cancer with metastases to the liver status post chemotherapy and partial resection, prior DVT on Eliquis therapy, hypertension, dyslipidemia, diabetes mellitus, COPD, and heart failure who presented with weakness and recent fall. In the ER he underwent an extensive evaluation. He was noted to have some ANTHONY with a creatinine of 1.3, along with an elevated BNP, Lumbar spine CT showed mulilevel lumbar degenerative changes and facet arthropathy , with spinal canal stenosis greatest at L4-5. He was admitted for further monitoring. He was started on IVF with elevated CPK. He was seen by therapy who recommended ROGE. Ortho felt he likely has a severe lumbar strain and recommended conservative management. Echocardiogram showed an ejection fraction of 55-60%, moderate LVH, and mild aortic stenosis. Hip and pelvic x-ray showed degenerative changes in both hips. His acute kidney injury resolved and his fluids were stopped. He continued to have some low back pain which was treated with Tylenol and Flexeril. Patient did report some sedation with Flexeril but it held with his back pain. He was noted to have mild bradycardia and his cardizem dose was decreased. He was determined stable for discharge to [facility]. Patient seen and examined at bedside. Continue back pain, feels that his weakness is getting better, no nuasea, no vomiting, still with gas. Vital signs reviewed and stable. General: non toxic, no distress, appears at stated age Derm: warm, dry Head: atraumatic, normocephalic, symmetric Eyes: EOMI, no lid lag, anicteric sclera Mouth: no lip lesion, mucus membranes moist Cardiovascular: S1S2 reg, no murmur, positive posterior tibial pulse bilateral, Lungs: CTA bilateral, no rhonchi, no rales , no accessory muscle use Abdominal: soft, nontender to palpation, no guarding, no appreciable organomegaly Ext: no gross muscle atrophy, no edema, no contractures Neuro: CN II-XI grossly intact, no focal neuro deficits Psych: Alert, oriented, appropriate affect A total of 37 minutes of time were spent preparing this complex discharge summary . Patient Condition at Discharge: Stable Plan - Discharge Summary Discharge Rx Participant: No New Discharge Prescriptions: New Diltiazem Cd [Cardizem CD] 240 mg PO DAILY cap.er.24h Cyclobenzaprine [Flexeril] 2.5 mg PO BID PRN #15 tab PRN Reason: Muscle Spasm Insulin Detemir (Levemir) [Levemir] 40 unit SQ BID syr Continue Aspirin 81 mg PO DAILY Apixaban [Eliquis] 2.5 mg PO BID Budesonide/Formoterol Fumarate [Symbicort 80-4.5 Mcg Inhaler] 2 puff INHALATION RT-BID lisinopriL 40 mg PO DAILY Metoprolol Succinate (ER) [Toprol XL] 50 mg PO DAILY Tiotropium 18 Mcg/Puff [Spiriva] 1 cap INHALATION RT-DAILY Potassium Chloride ER [K-Dur 20] 20 meq PO BID Niacin [Niaspan] 500 mg PO DAILY Acetaminophen/Diphenhydramine [Tylenol Pm Ex-Strength Caplet] 1 tab PO HS PRN PRN Reason: Pain Discontinued Diltiazem Cd [Cardizem CD] 300 mg PO DAILY Insulin Detemir (Levemir) [Levemir] 45 unit SQ BID Discharge Medication List Aspirin 81 mg PO DAILY 02/15/14 [History] Apixaban [Eliquis] 2.5 mg PO BID 05/11/18 [History] Budesonide/Formoterol Fumarate [Symbicort 80-4.5 Mcg Inhaler] 2 puff INHALATION RT-BID 05/11/18 [History] Metoprolol Succinate (ER) [Toprol XL] 50 mg PO DAILY 05/11/18 [History] Niacin [Niaspan] 500 mg PO DAILY 05/11/18 [History] Potassium Chloride ER [K-Dur 20] 20 meq PO BID 05/11/18 [History] Tiotropium 18 Mcg/Puff [Spiriva] 1 cap INHALATION RT-DAILY 05/11/18 [History] lisinopriL 40 mg PO DAILY 05/11/18 [History] Acetaminophen/Diphenhydramine [Tylenol Pm Ex-Strength Caplet] 1 tab PO HS PRN 08/15/20 [History] Cyclobenzaprine [Flexeril] 2.5 mg PO BID PRN #15 tab 08/19/20 [Rx] Diltiazem Cd [Cardizem CD] 240 mg PO DAILY cap.er.24h 08/19/20 [Rx] Insulin Detemir (Levemir) [Levemir] 40 unit SQ BID syr 08/19/20 [Rx] Follow up Appointment(s)/Referral(s): Anatoliy Brink DO [Doctor of Osteopathic Medicine] - 1 Week Jluis Guillen DO [Primary Care Provider] - 1-2 days Activity/Diet/Wound Care/Special Instructions: Activity: up with assistance only. Diet: carb consistent Special Instructions: Acuccheck three times daily Discharge Disposition: TRANSFER TO SNF/ECF
[2020-08-19] MEDS: INSULIN DETEMIR (LEVEMIR) 100 UNIT/ML SYR SQ SCH (13:03)
[2020-08-19] MEDS: CYCLOBENZAPRINE 5 MG TAB PO PRN (15:39)
[2020-08-22 05:19] LABS: Glucose,Whole Blood 100 mg/dL (75-99)
[2020-08-22 05:19] LABS: Glucose,Whole Blood 204 mg/dL (75-99)
[2020-08-22 05:21] LABS: Glucose,Whole Blood 163 mg/dL (75-99)
[2020-08-22 05:21] LABS: Glucose,Whole Blood 120 mg/dL (75-99)
[2020-08-22 05:21] LABS: Glucose,Whole Blood 148 mg/dL (75-99)
[2020-08-22 05:21] LABS: Glucose,Whole Blood 142 mg/dL (75-99)
[2020-08-22 05:21] LABS: Glucose,Whole Blood 135 mg/dL (75-99)
[2020-08-22 05:45] LABS: Glucose,Whole Blood 301 mg/dL (75-99)
[2020-08-22 05:45] LABS: Glucose,Whole Blood 194 mg/dL (75-99)
--- NOTE | 2020-08-27 07:50 | CDI ---
Documentation Clarification Form Date: 08/27/19 From: Lila Escoto Phone: If you have a question about this query, please contact Glenys Galindo, Take Off Worker at [phone] between 8am and 5pm Admit Date: 08/17/2020 02:41:00 PM Patient Name: Gustavo Chandler Visit Number: [id number] Discharge Date: 08/19/2020 03:40:00 PM ATTENTION: The Clinical Documentation Specialists (CDI) and [facility] Coding Staff appreciate your assistance in clarifying documentation. Please respond to the clarification below the line at the bottom and electronically sign. The CDI & [facility] Coding staff will review the response and follow-up if needed. Please note: Queries are made part of the Legal Health Record. If you have any questions, please contact the author of this message via ITS. Dr. Donna Clark, Please render your impression History/Risk Factors: Colon ca w mets to liver, DVT, HTN W chronic diastolic HF, HLD, DM, COPD, pacemaker Clinical Indicators: He presented with weakness and recent fall, unable to get up on his own, spent the night on the ground in the garage until Wednesday morning. Assessment- Mechanical Fall with Generalized Weakness, Rhabdomyolysis, Acute Kidney Injury. Creatine Kinase: 885/673 Treatment: IVF, hold home diuretics, orthostatics BID, daily BMP, Mg, I/Os, daily weights, continue Eliquis, Insulin, Symbicort, Duoneb prn, PT/OT consult In your professional opinion, can you please clarify the etiology of the condition? Traumatic rhabdomyolysis due to fall Traumatic rhabdomyolysis due to prolonged immobility Non traumatic rhabdomyolysis due to medication (please specify) Non traumatic rhabdomyolysis due to infection (please specify) Other, please specify Unable to determine Rhabdo not documented in the discharge summary as CPK Never elevated enough for this patient to be diagnosed with rhabdo. MTDD
== END 2020-08-19 15:40 | DRG 563 ==
LOC: EC 06:31 → 1SOBS 11:52 → OBSVTOIN 08-17 14:41
PROVIDERS: ADMIT Internal Medicine; ATTEND Internal Medicine
DX: S39.012A Strain of muscle, fascia and tendon of lower back, initial encounter (principal); N17.9 Acute kidney failure, unspecified; I50.32 Chronic diastolic (congestive) heart failure; I45.2 Bifascicular block; Z68.41 Body mass index [BMI] 40.0-44.9, adult; I11.0 Hypertensive heart disease with heart failure; J44.9 Chronic obstructive pulmonary disease, unspecified; E11.9 Type 2 diabetes mellitus without complications; Z79.4 Long term (current) use of insulin; Z20.828 Contact with and (suspected) exposure to other viral communicable diseases; E66.9 Obesity, unspecified; M48.061 Spinal stenosis, lumbar region without neurogenic claudication; M51.36 Other intervertebral disc degeneration, lumbar region; M16.0 Bilateral primary osteoarthritis of hip; M47.816 Spondylosis without myelopathy or radiculopathy, lumbar region; R40.0 Somnolence; T48.1X5A Adverse effect of skeletal muscle relaxants [neuromuscular blocking agents], initial encounter; I35.0 Nonrheumatic aortic (valve) stenosis; E86.0 Dehydration; E78.5 Hyperlipidemia, unspecified; M17.0 Bilateral primary osteoarthritis of knee; Z60.2 Problems related to living alone; R19.7 Diarrhea, unspecified; Y92.015 Private garage of single-family (private) house as the place of occurrence of the external cause; W18.30XA Fall on same level, unspecified, initial encounter; Z79.01 Long term (current) use of anticoagulants; Z79.82 Long term (current) use of aspirin; Z79.51 Long term (current) use of inhaled steroids; Z79.899 Other long term (current) drug therapy; Z86.718 Personal history of other venous thrombosis and embolism; Z85.038 Personal history of other malignant neoplasm of large intestine; Z85.05 Personal history of malignant neoplasm of liver; Z87.442 Personal history of urinary calculi; Z95.0 Presence of cardiac pacemaker; Z90.49 Acquired absence of other specified parts of digestive tract; Z87.19 Personal history of other diseases of the digestive system; Z87.891 Personal history of nicotine dependence; Z92.21 Personal history of antineoplastic chemotherapy; Z98.890 Other specified postprocedural states; Z88.0 Allergy status to penicillin; Z91.041 Radiographic dye allergy status; Z82.49 Family history of ischemic heart disease and other diseases of the circulatory system
CPT/HCPCS: 36415; 71045; 72131; 73521; 80048; 80053; 81001; 82550; 83605; 83735; 84443; 84484; 85025; 85027; 85610; 85730; 87324; 87635; 93005; 93306; 94640; 96374; 99285